=== PATIENT | female | born 1955 | race Caucasian/White ===

== ENCOUNTER 2017-07-16 17:18 | Inpatient (IN) | payer OTHER, MEDICAID ==
[~2017-07-16] VITALS: Ht 162.6 cm; Wt 64.0 kg
[~2017-07-16 17:18] MED LIST: ADULT LOW DOSE81 MG PO; ALLOPURINOL 10100 M1 PO; AMBIEN 5 MG TABL5 M1 PO; AMLODIPINE BESY10 MG PO; AMOX TR-K CLV1 EAC4 PO; ANTACID325 MG PO; ANTACID650 MG PO; ATORVASTATIN CA40 MG PO; AUGMENTIN 875875 M1 PO; AZITHROMYCIN 2250 MG PO; B-121000 MC2 PO; B12INJ PO; BACTRIM DS TAB1 EACH PO; BACTROBAN CREAM30 G1 TOP; BACTROBAN NASAL1 GM; BISACODYL SUPP10 MG RECTAL; CALCIUM ACETAT667 M2 PO; CALCIUM ACETAT667 MG PO; CARAFATE 1 GM TA1 G1 PO; CARAFATE 1 GM TA1 GM PO; CARAFATE 11 GM/10 M1 PO; CARVEDILOL12.5 MG; CARVEDILOL25 MG; CARVEDILOL3.125 MG PO; CATAPRES-TTS 20.2 M1; CATAPRES0.2 M1 PO; CATAPRES0.2 MG PO; CEFAZOLIN 1GM VI1 G1 IV; CELEXA20 MG PO; CENTRUM SILVER1 EAC2 PO; CIPRO250 M1 PO; CIPRO500 M1 PO; CIPROFLOXACIN500 M1 PO; CLEOCIN HCL300 MG PO; CLONIDINE HCL0.2 M2; CLONIDINE HCL0.3 M2 PO; CLONIDINE0.1 PO; CLOPIDOGREL75 MG PO; COLACE100 MG PO; COLACE100 MG PORT; COUMADIN 3 MG TA3 M1 PO; DEXTROSE 500.5 GM/ML IV PUSH; DICLOXACILLIN250 M1 PO; DIFLUCAN150 MG PO; EPOGEN10000 UNIT IJ; EPOGEN2000 UNIT/ SUBQ; ERYTHROMYCIN250 M1 PO; ERYTHROMYCIN250 MG PO; FENOFIBRATE160 MG PO; FLEET ENEMA118 ML RECTAL; FLEXERIL PO; FLORINEF ACETA0.1 MG; FLORINEF ACETA0.1 MG PO; FLUCONAZOLE 10100 MG PO; FUROSEMIDE 80 M80 M1; GABAPENTIN 100100 MG PO; GEMFIBROZIL 60600 MG PO; GLUCAGEN1 M2 IM; GLUCAGEN1 MG IM; GLUCOSE15 GM/59 M PO; HEPARIN 1,100 UNIT/1 IV; HUMALOG100 UNIT/1; HUMALOG100 UNIT/1 SC; HUMALOG100 UNIT/1 SUBQ; HUMALOG100 UNIT/2 SQ; HYDRALAZINE 2525 M1; HYDRALAZINE 2525 M1 PO; HYDRALAZINE 2525 MG PO; HYDROCODON-ACE1 EAC7 PO; HYDROCODONE-ACE15 ML PO; HYDROCODONE-AP1 EAC6 PO; HYDROCODONE-APA1 TA1 PO; HYDROXYZINE HCL25 M1 PO; IBUPROFEN 600600 M1 PO; IMDUR 60 MG TAB60 M1; IRON325 PO; KEFLEX250 MG PO; KEFLEX500 MG PO; KEPPRA 500 MG500 M1 PO; LANTUS SC; LANTUSSOLASTAR SUBQ; LASIX 40 MG TAB40 M1 PO; LIDODERM 5%1 PATC1 TOP; LISINOPRIL2.5 M1 PO; LOPRESSOR100 M1 PO; LOPRESSOR100 MG PO; LOPRESSOR50 MG PO; LORTAB 5 MG/5001 TA1 PO; LOVASTAT20 PO; MACROBID 100 M100 M1 PO; MAG-AL PLUS XS30 ML PO; MAG-OX 400 TAB400 M1 PO; MAGNESIUM OXID400 MG PO; MESTINON60 MG; MESTINON60 MG PO; METOLAZONE 2.52.5 MG; METOLAZONE 5 MG5 M1 PO; METOLAZONE 5 MG5 MG PO; METOLAZONE10 MG PO; METOPROLOL TAR100 MG PO; MILK OF MA2400 MG/10 PO; MINOCYCLINE HC100 M2 PO; MIRALAX17 GM PO; NEURONTIN 300300 M1 PO; NITROSTAT0.4 M1 PO; NORCO 5-325 TA1 EACH PO; NORMAL SALINE FL5 ML IV; NORVASC10 MG PO; NOVOLOG100 UNIT/1 SUBQ; OMEPRAZOLE 20 M20 M1 PO; ONDANSETRON HCL4 M2 PO; OXYCODONE HCL 55 MG PO; PANTOPRAZOLE SO40 M1 PO; PEPCID20 MG PO; PHOSLO667 MG; PHOSLO667 MG PO; PLAVIX 75 MG TA75 M1 PO; PLAVIX 75 MG TA75 MG PO; PRINIVIL20 MG PO; PROCARDIA XL30 MG PO; PROTONIX40 M1 PO; PYRIDOSTIGMINE60 M1 PO; PYRIDOSTIGMINE60 MG PO; REGLAN 10 MG TA10 MG PO; RENAL CAPS SOFTG1 MG PO; SENOKOT-S1 TA1 PO; SIMVASTATIN80 MG PO; TOPROL XL100 MG PO; TOPROL XL200 MG PO; TOPROL XL25 MG PO; TOPROL XL50 MG PO; TRAMADOL 50 MG50 MG PO; TRANSDERM-SCO1 PATC1 TRANSDERM; TRAZODONE HCL50 MG PO; TRIPHROCAPS SOFT1 MG PO; TYLENOL325 MG PO; UNASYN 1.5 GM1.5 GM IV; VANCO1GM IVPB; VANTIN PO; VERAPAMIL ER120 MG PO; VISTARIL 25 MG25 M1 PO; VITAMIN B-12500 MCG PO; VITAMIN D1000 UNI1 PO; VITAMIN D250000 UNIT PO; VITAMIN D3400 UNIT PO; VITAMIN D350000 UNIT PO; VITAMIN D400 UNI1 PO; XANAX 0.25 MG0.25 MG PO; ZANAFLEX4 MG PO; ZANTAC 150MG T150 M1 PO; ZANTAC 150MG T150 MG PO; ZOLOFT50 MG PO; [UNRECOGNIZED DRUG - SUPPLY] IV
[2017-07-16 17:32] VITALS: BP 206/108
[2017-07-16 18:13] LABS: ABSOLUTE BASOPHILS 0.1 thou/uL (0.0-0.2); ABSOLUTE EOSINOPHILS 0.1 thou/uL (0.0-0.7); ABSOLUTE MONOCYTES 0.6 thou/uL (0.0-1.2); ABSOLUTE NEUTROPHILS 4.4 thou/uL (1.6-8.1); EOSINOPHILS 1.1 %; HEMATOCRIT 37.5 % (37.0-47.0); HEMOGLOBIN 12.3 gm/dL (12.0-15.0); LYMPHOCYTES 16.5 %; MCH 31.9 pg (26.0-34.0); MCHC 32.7 g/dL (28.0-37.0); MCV 97.5 fL (80.0-100.0); MONOCYTES 9.5 %; MPV 10.8 fl. (7.2-11.1); NUCLEATED RBCS 0 /100WBC; PLATELET COUNT* 207 thou/uL (150-400); POLYS 71.9 %; RBC 3.85 mil/uL (4.20-5.00); RDW-CV 16.6 % (10.5-14.5); WBC 6.2 thou/uL (4.0-11.0)
[2017-07-16 18:31] LABS: INR 1.1; PROTIME 10.5 Seconds (9.20-11.50)
[2017-07-16 18:32] LABS: ANION GAP 11 mmol/L (7-16); BUN 43 mg/dL (7-18); CALCIUM 9.2 mg/dL (8.5-10.1); CHLORIDE 100 mmol/L (98-107); CO2 28 mmol/L (21-32); CREATININE 5.5 mg/dL (0.6-1.3); GLUCOSE 244 mg/dL (70-99); POTASSIUM 4.2 mmol/L (3.5-5.1); SODIUM 139 mmol/L (136-145)
[2017-07-16 18:42] LABS: ALBUMIN 3.5 g/dL (3.4-5.0); ALKALINE PHOSPHATASE 155 U/L (46-116); LIPASE 100 U/L (73-393); MAGNESIUM 1.9 mg/dL (1.8-2.4); NT-PRO BRAIN NAT PEPTIDE > 35000 pg/mL (<300); SGOT 20 U/L (15-37); SGPT 13 U/L (30-65); TOTAL BILIRUBIN 0.4 mg/dL (<0.1-1.0); TOTAL PROTEIN 7.1 g/dL (6.4-8.2); TROPONIN-I LEVEL <0.06 ng/mL (<0.06)
[2017-07-16 19:00] LABS: INFLUENZA A ANTIGEN None Detected (None Detect); INFLUENZA B ANTIGEN None Detected (None Detect)
[2017-07-16 20:05] VITALS: BP 172/88
[2017-07-16 20:42] VITALS: BP 185/71
[2017-07-17] VITALS (7 sets, daily range): BP systolic 123–164; BP diastolic 53–84
[2017-07-17] MEDS ORDERED: CELEXA20 MG PO (16:14)
[2017-07-17] MEDS ORDERED: TRIPHROCAPS SOFT1 MG PO (16:17)
[2017-07-17] MEDS ORDERED: NORCO 7.5-3251 EACH PO (16:19)
--- NOTE | 2017-07-17 16:29 | EKG ---
[place] [address] ELECTROCARDIOGRAM REPORT Name: ERIN GRISSOM Room: [address] ADM IN M.R.#: [id number] Admission: 07/16/17 Attend Phys: Kyle Abbasi Discharge: Date of : 59 Report #: [id number] THIS REPORT FOR: //name// [facility] ED Test Date: 2017-07-16 Test Time: 18:08:50 Pat Name: ERIN GRISSOM Department: Room: [facility] Gender: F Benefits Counselor: [place] : 1955 Requested By: Leonard Joyner Order Number: [id number] MD: Curt Starr Measurements Intervals [place] Rate: 121 P: ID: QRS: 102 QRSD: 91 T: 42 QT: 374 QTc: 531 Interpretive Statements Atrial fib-flutter with rapid response Anterior infarct, old possible Borderline ST depression, lateral leads Prolonged QT interval Compared to ECG 05/15/2017 15:32:32 atrial fib-flutter noted Myocardial infarct finding now present Prolonged QT interval now present Electronically Signed On 07-17-2017 16:29:45 [employer] by Curt Starr [email or web address] <ELECTRONICALLY SIGNED> By: Curt Starr MD, FACC 07/17/17 1629 1808 1808 Curt Starr MD, FAC /EPI
[2017-07-18 02:07] LABS: HEPATITIS B SURFACE AG Negative (Negative)
[2017-07-18 03:44] VITALS: BP 138/54
[2017-07-18 05:51] LABS: ABSOLUTE EOSINOPHILS 0.1 thou/uL (0.0-0.7); ABSOLUTE MONOCYTES 0.8 thou/uL (0.0-1.2); ABSOLUTE NEUTROPHILS 3.2 thou/uL (1.6-8.1); BASOPHILS 0.7 %; EOSINOPHILS 1.9 %; HEMATOCRIT 37.6 % (37.0-47.0); LYMPHOCYTES 32.4 %; MCH 31.3 pg (26.0-34.0); MCHC 31.8 g/dL (28.0-37.0); MCV 98.3 fL (80.0-100.0); MONOCYTES 13.5 %; MPV 10.7 fl. (7.2-11.1); NUCLEATED RBCS 0 /100WBC; PLATELET COUNT* 168 thou/uL (150-400); POLYS 51.5 %; RBC 3.82 mil/uL (4.20-5.00); RDW-CV 16.8 % (10.5-14.5); WBC 6.1 thou/uL (4.0-11.0)
[2017-07-18 06:07] LABS: INR 1.1
[2017-07-18 06:27] LABS: CALCIUM 8.6 mg/dL (8.5-10.1); CREATININE 3.4 mg/dL (0.6-1.3); POTASSIUM 3.5 mmol/L (3.5-5.1)
[2017-07-18 07:30] VITALS: BP 116/53
[2017-07-18 11:30] VITALS: BP 121/57
--- NOTE | 2017-07-18 12:58 | CON ---
[address] [address] CONSULTATION Name: JACIELERIN Rosaura Room: [address] IN M.R.#: [id number] Admission: 07/16/17 Attend Phys: Kyle Abbasi Discharge: Date of : 59 Report #: [id number] THIS REPORT FOR: //name// CC: Marla Garcia DATE OF SERVICE: 07/17/2017 ATTENDING PHYSICIAN: Jerry Abel MD REASON FOR EVALUATION: Febrile illness, associated abdominal pain with nausea and diarrhea. HISTORY OF PRESENT ILLNESS: Chart reviewed, the patient examined. This is a 62-year-old female known to myself, has extensive medical history given her age, much of which revolves around diabetes mellitus that has been complicated by vasculopathy, end-stage renal disease, on hemodialysis thrice weekly via dialysis catheter in her right chest; also has previous left below-knee amputation. She has had history of urinary tract infections. She was admitted to the emergency room with one week of signs and symptoms on the , described ____ reflux including epigastric type pain. She was unable to eat due to frequent emesis. She has noted that her spouse within the last month with significant grieving. She has had cough, not certain about fevers, although on presentation was febrile. Cultures of the blood are pending. Influenza antigen for A and B was negative. Chest x-ray did show bilateral pulmonary infiltrates. Medicines include Zosyn, vancomycin, given a dose of levofloxacin as well. She is quite distressed at this point and mildly encephalopathic. ALLERGIES: None known. MEDICATIONS: Currently include levofloxacin, vancomycin, aspirin, warfarin, Zosyn, amiodarone, heparin, pantoprazole, hydralazine, ondansetron, cholecalciferol, pyridostigmine, ergocalciferol, ferrous sulfate, clopidogrel, allopurinol, famotidine, diltiazem, metoprolol, trazodone, clonidine, atorvastatin, insulin, ipratropium, albuterol inhaler. PAST MEDICAL HISTORY: As described above, the diabetes mellitus type 1, insulin requiring, complicated by diffuse vasculopathy; has peripheral vascular disease, cardiomyopathy with congestive heart failure, hypertension, end-stage renal disease, on hemodialysis; left below-knee amputation in 2016, blind in the right eye, and previous aortocoronary bypass grafting. SOCIAL HISTORY: Nonsmoker, no ethanol. FAMILY HISTORY: [place] [address] CONSULTATION Name: ERIN GRISSOM Room: [address] IN [facility]#: [id number] Admission: 07/16/17 Attend Phys: Kyle Abbasi Discharge: Date of : 59 Report #: [id number] REVIEW OF SYSTEMS: As above. Presently, denies significant pulmonary related complaints. PHYSICAL EXAMINATION: GENERAL: She appears chronically ill. She is in moderate distress, undernourished. VITAL SIGNS: T-max of 102.0 overnight, more recently 98.8; pulse 67, respirations 18, and blood pressure is 124/61. SKIN: Warm and dry. NECK: Supple. LUNGS: Scattered coarse breath sounds. HEART: Regular. No appreciated murmur. ABDOMEN: Soft. There are no overt peritoneal signs. GENITOURINARY: Deferred. RECTAL: Deferred. LABORATORY DATA: TSH of 0.748, which is in the normal range. Free T4 of 0.997, in the normal range. Blood cultures sterile thus far. Influenza antigen for A and B was not detected. Lactic acid 1.5. Chest x-ray, bilateral pulmonary infiltrates. Electrolytes: Sodium 139, potassium 4.2, chloride 100, bicarbonate 28, anion gap of 11, BUN and creatinine 43 and 5.5, and glucose of 244. LFTs unremarkable. Albumin of 3.5, total protein 7.1. PT of 10.5, INR 1.1. CBC: White count of 6.2, H and H 12.3 and 37.5, and platelets of 207. ASSESSMENT: Febrile illness. The patient is certainly at risk for infectious complications, has primary abdominal related complaints at this point, although the labs do not actually show biliary dysfunction, we will go ahead and check an ultrasound to exclude that. She is at risk for pneumonitis as well. She likely has some degree of volume excess with pulmonary edema ____ sepsis a possibility, may well be a noninfectious as well. We will go ahead and continue empiric broad spectrum therapy, which will give us adequate coverage pending results of cultures. <ELECTRONICALLY SIGNED> By: Raymundo Sinclair MD 07/18/17 1258 1024 [id number] Sinclair MD /nt
--- NOTE | 2017-07-18 17:01 | 2DMMODE ---
[place] [address] 2 D/M-MODE ECHOCARDIOGRAM Name: ERIN GRISSOM Room: [address] IN [facility]#: [id number] Admission: 07/16/17 Attend Phys: Agustin Garcia Discharge: Date of : 59 Date of Service: 07/18/17 1701 Report #: [id number] THIS REPORT FOR: //name// APPROVED REPORT Study performed: 07/18/2017 10:02:00 EXAM: Comprehensive 2D, Doppler, and color-flow Echocardiogram Patient Location: In-Patient Room #: [facility] Status: routine BSA: 1.73 HR: 68 bpm BP: 158/53 mmHg Rhythm: Atrial Fibrillation Other Information Study Quality: Good Indications Atrial Fibrillation 2D Dimensions LVEF(%): 56.23 (>50%) IVSd: 13.31 (7-11mm) LVOT Diam: 17.27 (18-24mm) LVDd: 39.39 mm PWd: 11.39 (7-11mm) Ascending Ao: 30.81 (22-36mm) LVDs: 27.99 (25-40mm) Aortic Root: 28.26 mm Mccoy's LVEF: 56.23 % Volumes Left Atrial Volume (Systole) LA ESV Index: 36.50 mL/m2 Aortic Valve AoV Peak Tj.: 1.44 m/s AO Peak Gr.: 8.25 mmHg LVOT Max P.10 mmHg AO Mean Gr.: 4.39 mmHg LVOT Mean P.49 mmHg LVOT Max V: 0.88 m/s AO V2 VTI: 25.24 cm LVOT Mean V: 0.56 m/s GURMEET (VTI): 1.59 cm2 LVOT V1 VTI: 17.10 cm Mitral Valve MV Decel. Time: 167.01 [place] [address] 2 D/M-MODE ECHOCARDIOGRAM Name: JACIELERIN M Room: [address] IN .R.#: [id number] Admission: 07/16/17 Attend Phys: Agustin Garcia Discharge: Date of : 59 Date of Service: 07/18/17 1701 Report #: [id number] MV PHT: 48.43 ms MVA (PHT): 4.54 cm2 TDI Medial E' Tj.: 0.08 m/s Lateral E' Tj.: 0.08 m/s Pulmonary Valve PV Peak Tj.: 1.07 m/s PV Peak Gr.: 4.57 mmHg Tricuspid Valve TR Peak Gr.: 21.57 mmHg RVSP: 26.00 mmHg Left Ventricle The left ventricle is normal size. There is normal LV segmental wall motion. Moderate concentric left ventricular hypertrophy. Left ventricular systolic function is moderately decreased. LVEF is 40%. This study is not technically sufficient to allow evaluation of the LV diastolic function due to atrial fibrillation. Right Ventricle The right ventricle is normal size. The right ventricular systolic function is normal. Atria Left atrium is mildly dilated. The right atrium size is normal. Aortic Valve Mild aortic valve sclerosis. No aortic regurgitation is present. No hemodynamically significant valvular aortic stenosis. Mitral Valve The mitral valve is normal in structure. Mild mitral regurgitation. No evidence of mitral valve stenosis. Tricuspid Valve The tricuspid valve is normal in structure. Mild tricuspid regurgitation. The RVSP is ___26____ mmHg. Pulmonic Valve The pulmonary valve is normal in structure. Trace pulmonic regurgitation. Great Vessels The aortic root is normal in size. IVC [place] [address] 2 D/M-MODE ECHOCARDIOGRAM Name: ERIN GRISSOM Room: [address] IN [facility]#: [id number] Admission: 07/16/17 Attend Phys: Agustin Garcia Discharge: Date of : 59 Date of Service: 07/18/17 1701 Report #: [id number] collapses with >50% inspiration Pericardium There is no pericardial effusion. <Conclusion> The left ventricle is normal size. Moderate concentric left ventricular hypertrophy. Left ventricular systolic function is moderately decreased. LVEF is 40%. This study is not technically sufficient to allow evaluation of the LV diastolic function due to atrial fibrillation. The right ventricle is normal size. Left atrium is mildly dilated. Mild aortic valve sclerosis. No aortic regurgitation is present. No hemodynamically significant valvular aortic stenosis. The mitral valve is normal in structure. Mild mitral regurgitation. The tricuspid valve is normal in structure. Mild tricuspid regurgitation. The RVSP is ___26____ mmHg. There is no pericardial effusion. There is normal LV segmental wall motion. <ELECTRONICALLY SIGNED> By: Curt Starr MD, FACC 07/18/171700 00 00 Curt Starr MD, FACC /INF
--- NOTE | 2017-07-18 17:38 | EKG ---
[place] [address] ELECTROCARDIOGRAM REPORT Name: ERIN GRISSOM Room: [address] ADM IN M.R.#: [id number] Admission: 07/16/17 Attend Phys: Kyle Abbasi Discharge: Date of : 59 Report #: [id number] THIS REPORT FOR: //name// [facility] Test Date: 2017-07-17 Test Time: 10:07:07 Pat Name: ERIN GRISSOM Department: Room: [address] Gender: F Vocational Nursing Instructor: 29 : 1955 Requested By: Lara Hernandez Order Number: [id number] Giuliana MD: James Cerda Measurements Intervals [place] Rate: 80 P: [place]: QRS: 77 QRSD: 91 T: 260 QT: 459 QTc: 530 Interpretive Statements Atrial fibrillation Consider left ventricular hypertrophy Borderline T abnormalities, inferior leads Anteroseptal infarct, old, possible Prolonged QT interval Compared to ECG 05/15/2017 15:32:32 AV block, advanced (high-grade) now present T-wave abnormality now present Prolonged QT interval now present Left bundle-branch block no longer present Electronically Signed On 07-18-2017 17:38:02 BENEFITS SPECIALIST by James Cerda [email or web address] <ELECTRONICALLY SIGNED> By: James Cerda MD, FACC 07/18/17 1738 1007 1007 James Cerda MD, FAC /EPI
--- NOTE | 2017-07-18 17:45 | EKG ---
[place] [address] ELECTROCARDIOGRAM REPORT Name: ERIN GRISSOM Room: [address] ADM IN M.R.#: [id number] Admission: 07/16/17 Attend Phys: Kyle Abbasi Discharge: Date of : 59 Report #: [id number] THIS REPORT FOR: //name// [facility] Test Date: 2017-07-18 Test Time: 08:39:27 Pat Name: ERIN GRISSOM Department: Room: [address] Gender: F Director Of Veterans Affairs: : 1955 Requested By: Renetta Case Order Number: [id number] Reading MD: James Cerda Measurements Intervals [place] Rate: 79 P: 0 ID: 200 QRS: 94 QRSD: 92 T: 96 QT: 458 QTc: 526 Interpretive Statements Atrial fibrillation Anterior infarct, old Nonspecific T abnormalities, lateral leads Prolonged QT interval Compared to ECG 07/16/2017 18:08:50 T-wave abnormality now present ST (T wave) deviation no longer present Myocardial infarct finding still present Electronically Signed On 07-18-2017 17:45:05 HAND SAMPLE MAKER by James Cerda [email or web address] <ELECTRONICALLY SIGNED> By: James Cerda MD, FACC 07/18/17 1745 0839 0839 James Cerda MD, FAC /EPI
[2017-07-18 20:00] VITALS: BP 130/62
[2017-07-19 00:15] VITALS: BP 123/60
[2017-07-19 03:55] VITALS: BP 141/54
[2017-07-19 05:35] LABS: INR 1.1; PROTIME 10.6 Seconds (9.20-11.50)
[2017-07-19 08:12] VITALS: BP 113/51
[2017-07-19 12:00] VITALS: BP 149/61
[2017-07-19 15:22] VITALS: BP 149/61
--- NOTE | 2017-07-19 17:39 | EKG ---
[place] [address] ELECTROCARDIOGRAM REPORT Name: ERIN GRISSOM Room: [address] ADM IN M.R.#: [id number] Admission: 07/16/17 Attend Phys: Kyle Abbasi Discharge: Date of : 59 Report #: [id number] THIS REPORT FOR: //name// [facility] Test Date: 2017-07-19 Test Time: 07:50:35 Pat Name: ERIN GRISSOM Department: Room: [address] Gender: F Ordering Machine Operator: : 1955 Requested By: Renetta Case Order Number: [id number] Reading MD: James Cerda Measurements Intervals [place] Rate: 62 P: 103 ME: 234 QRS: 82 QRSD: 95 T: 65 QT: 515 QTc: 523 Interpretive Statements Atrial fibrillation Borderline right axis deviation Probable left ventricular hypertrophy Nonspecific T abnormalities, lateral leads Baseline wander in lead(s) III Compared to ECG 07/18/2017 08:39:27 Myocardial infarct finding no longer present Prolonged QT interval no longer present T-wave abnormality still present Electronically Signed On 07-19-2017 17:39:23 ETL PROGRAMMER by James Cerda [email or web address] <ELECTRONICALLY SIGNED> By: James Cerda MD, FACC 07/19/17 1739 0750 0750 James Cerda MD, FACC /EPI
[2017-07-19 20:00] VITALS: BP 105/44
[2017-07-20 04:32] VITALS: BP 151/52
[2017-07-20 07:53] VITALS: BP 165/61
[2017-07-20 12:03] VITALS: BP 105/42
[2017-07-20 16:15] VITALS: BP 112/49
[2017-07-20 20:10] VITALS: BP 110/42
[2017-07-21] VITALS: BP 131/51
[2017-07-21 09:00] VITALS: BP 134/96
[2017-07-21 15:53] VITALS: BP 149/61
[2017-07-21] MEDS ORDERED: COUMADIN 3 MG TA3 M1 PO (17:29)
[2017-07-21] MEDS ORDERED: CARDIZEM60 MG PO (17:30)
[2017-07-21 17:33] VITALS: BP 149/61
[2017-07-21 17:35] VITALS: BP 149/61
[2017-07-21 17:47] VITALS: BP 149/61
--- NOTE | 2017-07-31 09:12 | CON ---
[facility] [address] [place] [address] CONSULTATION Name: ERIN GRISSOM Room: [address] IN M.R.#: [id number] Admission: 07/16/17 Attend Phys: Kyle Abbasi Discharge: 07/21/17 Date of : 59 Report #: [id number] THIS REPORT FOR: //name// CC: Marla Garcia DATE OF SERVICE: 07/17/2017 REQUESTING PHYSICIAN: Jerry Abel M.D. REASON FOR CONSULTATION: Assistance in providing dialysis. HISTORY OF PRESENT ILLNESS: The patient is a 62-year-old female admitted to the hospital after she missed a couple of dialysis treatments. She presents to the hospital with complaints of not feeling well and having some cough and congestion. She was evaluated in the Emergency Room. X-ray was performed, she was found to have patchy bilateral infiltrates, the diagnosis was between pneumonia and aspiration. The infiltrates were greater on the left side. She was admitted with a diagnosis of pneumonia and I was consulted to provide help with dialysis. PAST MEDICAL HISTORY: Significant for: 1. Hypertension. 2. History of diabetes mellitus type 1. 3. End-stage renal disease on dialysis on Monday, Monday, and Monday schedule. 4. History of hypoxia. 5. Coronary artery disease. 6. History of fracture of the left inferior pubic ramus in the past. SOCIAL HISTORY: No current tobacco or alcohol abuse. FAMILY HISTORY: Noncontributory. MEDICATIONS: Reviewed. PHYSICAL EXAMINATION: GENERAL: She is examined on dialysis, no acute distress. VITAL SIGNS: Reviewed. NECK: Supple. LUNGS: Decreased air movement. Dialysis is via tunneled dialysis catheter on the right side through the right internal jugular vein. CARDIOVASCULAR: Without rub. ABDOMEN: Soft. EXTREMITIES: She has a left [place] [address] CONSULTATION Name: ERIN GRISSOM Room: [address]#: [id number] Admission: 07/16/17 Attend Phys: Kyle Abbasi Discharge: 07/21/17 Date of : 59 Report #: [id number] LABORATORY DATA: Revealed hemoglobin of 12.3, white count 6200. Potassium is 4.2. ASSESSMENT: A 62-year-old female with end-stage renal disease, admitted for possible pneumonia. PLAN: I will provide dialysis while the patient is in the hospital. Thank you very much for asking my assistance in providing dialysis on this patient. <ELECTRONICALLY SIGNED> By: Ranjit Parks MD 07/31/17 0912 1239 2122Adc Parks MD /PMT
[2018-01-08] MEDS ORDERED: PLAVIX 75 MG TA75 M1 PO (17:09)
== END 2017-07-21 18:50 | disposition home health service (06) | DRG 871 ==
LOC: M.ERS 17:18 → M.2W 18:52 → M.TBA-ER 18:52 → M.2W 19:27
PROVIDERS: Emergency Medicine; Internal Medicine; Internal Medicine Nephrology; Nurse Practitioner Family; ADMIT Internal Medicine
PROC: 5A1D70Z Performance of Urinary Filtration, Intermittent, Less than 6 Hours Per Day (ICD-10-PCS; principal; 2017-07-19)
PROC: 5A1D70Z Performance of Urinary Filtration, Intermittent, Less than 6 Hours Per Day (ICD-10-PCS; 2017-07-21)
DX: A41.9 Sepsis, unspecified organism (principal); N18.6 End stage renal disease; J69.0 Pneumonitis due to inhalation of food and vomit; I50.32 Chronic diastolic (congestive) heart failure; I42.9 Cardiomyopathy, unspecified; I13.2 Hypertensive heart and chronic kidney disease with heart failure and with stage 5 chronic kidney disease, or end stage renal disease; I25.10 Atherosclerotic heart disease of native coronary artery without angina pectoris; H54.40 Blindness, one eye, unspecified eye; E10.51 Type 1 diabetes mellitus with diabetic peripheral angiopathy without gangrene; E10.22 Type 1 diabetes mellitus with diabetic chronic kidney disease; F32.9 Major depressive disorder, single episode, unspecified; D63.8 Anemia in other chronic diseases classified elsewhere; I48.0 Paroxysmal atrial fibrillation; K52.9 Noninfective gastroenteritis and colitis, unspecified; E87.70 Fluid overload, unspecified; Z87.440 Personal history of urinary (tract) infections; Z98.62 Peripheral vascular angioplasty status; Z99.2 Dependence on renal dialysis; Z90.710 Acquired absence of both cervix and uterus; Z95.1 Presence of aortocoronary bypass graft; Z89.512 Acquired absence of left leg below knee; Z87.81 Personal history of (healed) traumatic fracture; Z82.49 Family history of ischemic heart disease and other diseases of the circulatory system; Z91.14 Patient's other noncompliance with medication regimen; Z79.01 Long term (current) use of anticoagulants; Z79.899 Other long term (current) drug therapy

== ENCOUNTER 2017-08-23 18:48 | Observation (INO) | payer OTHER, MEDICAID ==
[~2017-08-23] VITALS: Ht 162.6 cm; Wt 68.9 kg
[~2017-08-23 18:48] MED LIST changes: +CARDIZEM60 MG PO; +NORCO 7.5-3251 EACH PO
[2017-08-23 18:59] VITALS: BP 197/104
[2017-08-23 19:37] LABS: ABSOLUTE BASOPHILS 0.1 thou/uL (0.0-0.2); ABSOLUTE EOSINOPHILS 0.2 thou/uL (0.0-0.7); ABSOLUTE LYMPHOCYTES 1.7 thou/uL (0.8-5.3); ABSOLUTE MONOCYTES 0.4 thou/uL (0.0-1.2); ABSOLUTE NEUTROPHILS 4.4 thou/uL (1.6-8.1); BASOPHILS 0.9 %; EOSINOPHILS 3.6 %; HEMATOCRIT 35.6 % (37.0-47.0); HEMOGLOBIN 11.4 gm/dL (12.0-15.0); LYMPHOCYTES 24.5 %; MCHC 32.1 g/dL (28.0-37.0); MCV 96.6 fL (80.0-100.0); MONOCYTES 6.3 %; MPV 9.2 fl. (7.2-11.1); NUCLEATED RBCS 0 /100WBC; PLATELET COUNT* 271 thou/uL (150-400); POLYS 64.7 %; RBC 3.68 mil/uL (4.20-5.00); RDW-CV 18.4 % (10.5-14.5); WBC 6.8 thou/uL (4.0-11.0)
[2017-08-23 19:44] LABS: CALCIUM 8.7 mg/dL (8.5-10.1)
[2017-08-23 19:49] LABS: ALBUMIN 3.2 g/dL (3.4-5.0); TOTAL BILIRUBIN 0.4 mg/dL (<0.1-1.0); TOTAL PROTEIN 6.4 g/dL (6.4-8.2)
[2017-08-23 23:15] VITALS: BP 163/76
[2017-08-23 23:41] VITALS: BP 172/84
[2017-08-24 04:00] VITALS: BP 159/80
--- NOTE | 2017-08-24 05:28 | NUR ---
PT ADMITTED FROM ER. HISTORY AND ASSESSMENT COMPLETE. DIALYSIS PORT TO R CHEST. PT INCONT OF LARGE AMOUNT OF WATERY STOOL. BED CHANGE AND CLEANED UP. PT TEARFUL AT TIMES. AFIB ON MONITOR. BARBRA PAIN. PT TO HAVE DIALYSIS TODAY. FALL PRECAUTIONS IN PLACE INCLUDING BED ALARM. BED IN LOWEST POSITION.
[2017-08-24 08:00] VITALS: BP 172/92
--- NOTE | 2017-08-24 09:13 | NUR ---
Pt out of the room at dialysis, Pt known to this CM from previous hospital stay. Pt normally resides at home with her son. Pt dialysis dependent and goes to HD at [facility]. Son provides transportation. Son assists with cares at home. Hx of . Hx of SNF at [facility]. CM to f/u to assess Pt's current situation later.
--- NOTE | 2017-08-24 09:33 | NUR ---
ASSUMED CARE OF PT AT 0730. PT RESTING IN BED. PT TO HAVE DIALYSIS THIS AM. PT A&0X4, DENIES ANY PAIN OR SHORTNESS OF BREATH AT THIS TIME. PT TRACING AFIB ON THE POWDER WORKER. ON RA SAT 96%. PT INCONT OF BOWEL AND BLADDER. RIGHT CHEST DIALYSIS CATHETER IN PLACE. PT WHEELCHAIR BOUND AT HOME. UP WITH 1-2 ASSIST, UNSTEADY WITH LEFT BKA. RLE WOUNDS NOTED. REFER TO PICTURES IN CHART. HOME MEDICATIONS NOT RESTARTED. WILL ADMINISTER WHEN MEDICATIONS RESTARTED AND WHEN PT RETURNS BACK FROM DIALYSIS. PT TRANSFERRED TO DIALYSIS VIA BED. REPORT GIVEN TO NASEEM BREAST PULLER. AM ASSESSMENT CHARTED. PT REPOSITIONED EVERY 2 HOURS FOR COMFORT. HOURLY ROUNDING OBSERVED. BED IN LOW POSITION. BED ALARM IN PLACE. FALL PRECAUTIONS IN PLACE. CALL LIGHT WITHIN REACH. WILL CONTINUE PLAN OF CARE.
[2017-08-24 10:32] VITALS: BP 172/92
--- NOTE | 2017-08-24 12:56 | EKG ---
[place] [address] ELECTROCARDIOGRAM REPORT Name: JACIELERIN Rosaura Room: [address] M.R.#: [id number] Admission: 08/23/17 Attend Phys: Kyle Abbasi Discharge: Date of : 59 Report #: [id number] THIS REPORT FOR: //name// [facility] ED Test Date: 2017-08-23 Test Time: 20:33:46 Pat Name: ERIN GRISSOM Department: Room: [facility] Gender: F Cardiac Tech: JULIOCESAR Morales : 1955 Requested By: Clair Thompson Order Number: [id number] MD: Trevor Beck Measurements Intervals [place] Rate: 106 P: [place]: QRS: 112 QRSD: 97 T: 70 QT: 383 QTc: 509 Interpretive Statements Atrial flutter with predominant 2:1 AV block Anterior infarct, old Minimal ST depression, diffuse leads Compared to ECG 07/19/2017 07:50:35 rate increased Electronically Signed On 08-24-2017 12:56:24 JIGMAN by Trevor Beck [email or web address] <ELECTRONICALLY SIGNED> By: Trevor Beck MD, FAC 08/24/17 1256 32 32 Trevor Beck MD, [facility] /EPI
[2017-08-24 13:12] VITALS: BP 161/82
--- NOTE | 2017-08-24 14:50 | NUR ---
CM SPOKE TO THE PATIENT TO DISCUSS DISCHARGE PLANNING NEEDS, AND ANY QUESTIONS OR CONCERNS THAT SHE MAY HAVE. PATIENT HAS NO QUESTIONS OR CONCERNS AT THIS TIME, AND STATES THAT HER SON WILL PROVIDE TRANSPORTATION HOME. CM CONTACTED [facility] TO INFORM OF THE PATIENTS D/C HOME TODAY, AND FAXED THE PATIENTS FACESHEET, H&P, AND FLOW SHEETS. CM WILL REMAIN AVAILABLE TO ASSIST AND FOLLOW NEEDED.
--- NOTE | 2017-08-24 15:02 | NUR ---
PT WENT TO DIALYSIS THIS AM. TOLERATED WELL. 3L TAKEN OFF PER TITA GUSMAN RN. DISCHARGE ORDERS RECEIVED. DISCHARGE INSTRUCTIONS, CARE NOTES AND FOLLOW UP APPTS GIVEN TO PT. PT COMMUNICATES UNDERSTANDING OF DISCHARGE TEACHING. IV AND SUPPORT ASSOCIATE REMOVED. PT DISCHARGED WITH ALL BELONGINGS AND PAPERWORK VIA WHEELCHAIR WITH NURSING STAFF TO SONS OWN PERSONAL VEHICLE.
--- NOTE | 2017-09-05 15:49 | CON ---
[address] [address] CONSULTATION Name: JACIELERIN Rosaura Room: [address] Olga Reed#: [id number] Admission: 08/23/17 Attend Phys: Kyle Abbasi Discharge: 08/24/17 Date of : 59 Report #: [id number] THIS REPORT FOR: //name// CC: Marla Garcia DATE OF SERVICE: 08/23/2017 CONSULTING PHYSICIAN: Agustin Garcia DO. REASON FOR CONSULTATION: End-stage kidney disease. HISTORY OF PRESENT ILLNESS: A 62-year-old female with history of end-stage kidney disease, on hemodialysis Tuesdays, , Saturdays, admitted to observation secondary to missed dialysis and hyperkalemia. She had a potassium of 6. She is seen on dialysis, tolerating treatment well. The patient currently has no complaints. She is tolerating her dialysis treatment well and is to discharge after dialysis today. She also had Aflutter and was given IV beta blockers with improvement in her heart rate. REVIEW OF SYSTEMS: Constitutional, psych, heme, eyes, ENT, respiratory, cardiac, GI, , endocrine, all negative except as documented above. Denies any chest pain or shortness of breath. PAST MEDICAL HISTORY: End-stage kidney disease on hemodialysis, hypertension, diabetes type 1, blind in her right eye, peripheral vascular disease with stenting in the lower extremities, coronary artery disease with history of 4-vessel CABG, hysterectomy, depression, diastolic heart failure, AFib, history of hip fracture, history of left BKA 2016. SOCIAL HISTORY: No tobacco. FAMILY HISTORY: Not pertinent in this 62-year-old female. CURRENT MEDICATIONS: Reviewed. PHYSICAL EXAMINATION: VITAL SIGNS: Blood pressure 172/92, pulse 83, temperature 36.8. GENERAL: No acute distress. EYES: Extraocular movements intact. EARS: Externally normal. CARDIOVASCULAR: Regular rate. LUNGS: No crackles. ABDOMEN: Soft. MUSCULOSKELETAL: Nontender. PSYCHIATRIC: [place] [address] CONSULTATION Name: ERIN GRISSOM Room: [address] Olga Reed#: [id number] Admission: 08/23/17 Attend Phys: Kyle Abbasi Discharge: 08/24/17 Date of : 59 Report #: [id number] LABORATORY DATA: White cell count 6.8, hemoglobin 11.4, platelets 271. Sodium 137, potassium 6, chloride 105, bicarbonate 20, BUN 40, creatinine 5, glucose 157, calcium 8.7, albumin 3.2. ASSESSMENT AND PLAN: 1. End-stage kidney disease, on chronic hemodialysis. The patient is seen on dialysis, tolerating treatment well. 2. Hyperkalemia. The patient is dialyzing against a lower potassium dialysate which will help treat her high potassium and has been educated on low potassium diet. 3. Atrial flutter per Internal Medicine. Upon discharge, the patient can follow up in the outpatient dialysis unit and follow her regular maintenance dialysis schedule. Thank you for requesting my opinion in the care and management of this patient. <ELECTRONICALLY SIGNED> By: Latoya Wyatt MD 09/05/17 1549 1143 1748Abikyle Wyatt MD /nt
[2018-01-08] MEDS ORDERED: PLAVIX 75 MG TA75 M1 PO (17:09)
== END 2017-08-24 15:10 | disposition home or self-care (01) ==
LOC: M.ERS 18:48 → M.TBA-ER 21:59 → M.2W 21:59
PROVIDERS: Emergency Medicine; ADMIT Internal Medicine
DX: E87.5 Hyperkalemia (principal); I48.92 Unspecified atrial flutter; I48.91 Unspecified atrial fibrillation; I73.9 Peripheral vascular disease, unspecified; I25.10 Atherosclerotic heart disease of native coronary artery without angina pectoris; F32.9 Major depressive disorder, single episode, unspecified; I13.2 Hypertensive heart and chronic kidney disease with heart failure and with stage 5 chronic kidney disease, or end stage renal disease; E10.22 Type 1 diabetes mellitus with diabetic chronic kidney disease; I50.32 Chronic diastolic (congestive) heart failure; N18.6 End stage renal disease; Z99.2 Dependence on renal dialysis; Z89.512 Acquired absence of left leg below knee

== ENCOUNTER 2017-10-28 06:54 | Emergency (ER) | payer OTHER, MEDICAID ==
[~2017-10-28] VITALS: Ht 162.6 cm; Wt 67.6 kg
--- NOTE | 2017-10-28 08:39 | EKG ---
[place] [address] ELECTROCARDIOGRAM REPORT Name: ERIN GRISSOM Room: [facility]#: [id number] Admission: 10/28/17 Attend Phys: Discharge: Date of : 59 Report #: [id number] THIS REPORT FOR: //name// [facility] ED Test Date: 2017-10-28 Test Time: 07:00:57 Pat Name: ERIN GRISSOM Department: Room: Gender: F Retail Banker: Carmen PRINCE : 1955 Requested By: Kaylene Boyd Order Number: [id number] Reading MD: James Cerda Measurements Intervals [place] Rate: 84 P: [place]: QRS: 102 QRSD: 100 T: 17 QT: 466 QTc: 551 Interpretive Statements Atrial flutter with variable AV conduction Anterior infarct, old Borderline T abnormalities, inferior leads Prolonged QT interval Compared to ECG 08/23/2017 20:33:46 T-wave abnormality now present ST (T wave) deviation no longer present Myocardial infarct finding still present Electronically Signed On 10-28-2017 8:38:52 CDT by James Cerda [email or web address] <ELECTRONICALLY SIGNED> By: James Cerda MD, FACC 10/28/17 0838 9 9 James Cerda MD, [facility] /EPI
[2017-10-28 08:51] VITALS: BP 199/111
[2018-01-08] MEDS ORDERED: PLAVIX 75 MG TA75 M1 PO (17:09)
== END 2017-10-28 08:55 | disposition home or self-care (01) ==
LOC: M.ERS 06:54
DX: I16.0 Hypertensive urgency (principal); I25.10 Atherosclerotic heart disease of native coronary artery without angina pectoris; I13.2 Hypertensive heart and chronic kidney disease with heart failure and with stage 5 chronic kidney disease, or end stage renal disease; N18.6 End stage renal disease; E10.22 Type 1 diabetes mellitus with diabetic chronic kidney disease; I50.9 Heart failure, unspecified; F32.9 Major depressive disorder, single episode, unspecified; Z90.710 Acquired absence of both cervix and uterus

== ENCOUNTER 2017-10-31 09:28 | Emergency (ER) | payer OTHER, MEDICAID ==
[~2017-10-31] VITALS: Ht 152.4 cm; Wt 54.4 kg
[2017-10-31 10:50] LABS: URINE BLOOD 3+ (Negative); URINE CLARITY SL CLOUDY; URINE GLUCOSE-RANDOM 2+ (Negative); URINE KETONES TRACE (Negative); URINE LEUKOCYTES-REFLEX TRACE (Negative); URINE NITRITE-REFLEX NEGATIVE (Negative); URINE PROTEIN 3+ (Negative); URINE UROBILINOGEN 0.2 E.U./dl (0.2-1.0)
[2017-10-31 10:51] LABS: ICTOTEST (BILI CONFIRMATORY) Negative (Negative); URINE BILIRUBIN 1+ (Negative); URINE COLOR BROWN
[2017-10-31 10:56] LABS: CASTS None Seen /LPF (None Seen); CRYSTALS None Seen /LPF (None Seen); MUCUS 0-3 Light strn/LPF (None Seen); SQUAMOUS 0-3 Few /LPF (0-3); URINE RBC >20 Many /HPF (0-2); URINE WBC-REFLEX 6-15 Few /HPF (0-5)
[2017-10-31] MEDS ORDERED: TRAZODONE HCL50 MG PO (11:03)
[2017-10-31] MEDS ORDERED: HYDROCODON-ACE1 EAC7 PO (11:03)
[2017-10-31] MEDS ORDERED: CIPRO250 M1 PO (11:03)
[2017-10-31 13:00] VITALS: BP 203/102
[2018-01-08] MEDS ORDERED: PLAVIX 75 MG TA75 M1 PO (17:09)
== END 2017-10-31 13:01 | disposition home or self-care (01) ==
LOC: M.ERS 09:28
PROVIDERS: Emergency Medicine
DX: I10 Essential (primary) hypertension (principal); N39.0 Urinary tract infection, site not specified; I25.10 Atherosclerotic heart disease of native coronary artery without angina pectoris; E10.22 Type 1 diabetes mellitus with diabetic chronic kidney disease; N18.6 End stage renal disease; I48.91 Unspecified atrial fibrillation; I13.2 Hypertensive heart and chronic kidney disease with heart failure and with stage 5 chronic kidney disease, or end stage renal disease; I50.9 Heart failure, unspecified; Z99.2 Dependence on renal dialysis; Z90.710 Acquired absence of both cervix and uterus

== ENCOUNTER 2017-11-10 19:12 | Emergency (ER) | payer OTHER, MEDICAID ==
[~2017-11-10] VITALS: Ht 160 cm; Wt 68.0 kg
[2017-11-10] MEDS ORDERED: KEFLEX500 M1 PO (19:33)
[2017-11-10 19:54] VITALS: BP 220/95
[2018-01-08] MEDS ORDERED: PLAVIX 75 MG TA75 M1 PO (17:09)
== END 2017-11-10 19:55 | disposition home or self-care (01) ==
LOC: M.ERS 19:12
DX: S91.311A Laceration without foreign body, right foot, initial encounter (principal); E10.9 Type 1 diabetes mellitus without complications; I13.2 Hypertensive heart and chronic kidney disease with heart failure and with stage 5 chronic kidney disease, or end stage renal disease; E10.22 Type 1 diabetes mellitus with diabetic chronic kidney disease; F32.9 Major depressive disorder, single episode, unspecified; I48.91 Unspecified atrial fibrillation; I50.9 Heart failure, unspecified; Z99.2 Dependence on renal dialysis; X58.XXXA Exposure to other specified factors, initial encounter; Y93.89 Activity, other specified; Y92.89 Other specified places as the place of occurrence of the external cause; Y99.8 Other external cause status

== ENCOUNTER 2017-11-11 07:44 | Inpatient (IN) | payer OTHER, MEDICAID ==
[~2017-11-11] VITALS: Ht 152.4 cm; Wt 60.3 kg
[2017-11-11] VITALS (8 sets, daily range): BP systolic 123–203; BP diastolic 56–84
[~2017-11-11 07:44] MED LIST changes: +KEFLEX500 M1 PO
[2017-11-11 11:19] LABS: ABSOLUTE BASOPHILS 0.1 thou/uL (0.0-0.2); ABSOLUTE EOSINOPHILS 0.1 thou/uL (0.0-0.7); ABSOLUTE MONOCYTES 0.5 thou/uL (0.0-1.2); ABSOLUTE NEUTROPHILS 5.3 thou/uL (1.6-8.1); BASOPHILS 1.4 %; EOSINOPHILS 1.7 %; HEMATOCRIT 39.9 % (37.0-47.0); HEMOGLOBIN 12.8 gm/dL (12.0-15.0); LYMPHOCYTES 14.7 %; MCH 30.2 pg (26.0-34.0); MCHC 32.1 g/dL (28.0-37.0); MPV 11.1 fl. (7.2-11.1); NUCLEATED RBCS 0 /100WBC; PLATELET COUNT* 169 thou/uL (150-400); POLYS 75.2 %; RBC 4.25 mil/uL (4.20-5.00); RDW-CV 16.1 % (10.5-14.5); WBC 7.1 thou/uL (4.0-11.0)
[2017-11-11 11:28] LABS: ANION GAP 12 mmol/L (7-16); APTT 27.8 Seconds (25.0-31.3); BUN 30 mg/dL (7-18); CALCIUM 7.8 mg/dL (8.5-10.1); CHLORIDE 100 mmol/L (98-107); CO2 22 mmol/L (21-32); CREATININE 3.5 mg/dL (0.6-1.3); GLUCOSE 362 mg/dL (70-99); INR 1.2; POTASSIUM 3.5 mmol/L (3.5-5.1); PROTIME 11.2 Seconds (9.20-11.50); SODIUM 134 mmol/L (136-145)
--- NOTE | 2017-11-11 11:31 | NUR ---
PT STATES SHE HAS DIALYSIS ON TUESDAYS, THURSDAYS AND SATURDAYS. PT STATES SHE MISSED HER LAST DIALYSIS ON MONDAY DUE TO NOT FEELING WELL AND HAVING DIARRHEA. PT HAS FISTULA IN RIGHT ARM. CURRENT BP IS 215/88
[2017-11-11 11:39] LABS: ALBUMIN 2.8 g/dL (3.4-5.0); ALKALINE PHOSPHATASE 143 U/L (46-116); SGOT 7 U/L (15-37); SGPT 7 U/L (30-65); TOTAL BILIRUBIN 0.6 mg/dL (<0.1-1.0); TOTAL PROTEIN 6.3 g/dL (6.4-8.2); TROPONIN-I LEVEL <0.06 ng/mL (<0.06)
[2017-11-11 12:07] LABS: NT-PRO BRAIN NAT PEPTIDE > 35000 pg/mL (<300)
--- NOTE | 2017-11-11 13:09 | EKG ---
[place] [address] ELECTROCARDIOGRAM REPORT Name: ERIN GRISSOM Room: [place] [address] ADM IN [facility].#: [id number] Admission: 11/11/17 Attend Phys: Rosaura Cruz Discharge: Date of : 59 Report #: [id number] THIS REPORT FOR: //name// [facility] ED Test Date: 2017-11-11 Test Time: 07:51:03 Pat Name: ERIN GRISSOM Department: Room: Gender: F Body Joiner: : 1955 Requested By: Lorne Moyer Order Number: [id number] Reading MD: Alexis Ramirez Measurements Intervals [place] Rate: 54 P: -3 NY: 207 QRS: 83 QRSD: 97 T: 115 QT: 560 QTc: 531 Interpretive Statements Sinus rhythm Borderline prolonged [place] interval Anterior infarct, old Prolonged QT interval Compared to ECG 10/28/2017 07:00:57 Atrial flutter no longer present T-wave abnormality no longer present Myocardial infarct finding still present Electronically Signed On 11-11-2017 13:08:53 CDT by Alexis Ramirez [email or web address] <ELECTRONICALLY SIGNED> By: Alexis Ramirez MD, FACC 11/11/17 1308 0751 [id number] Alexis Ramirez MD, FAC /EPI
--- NOTE | 2017-11-11 14:10 | NUR ---
RECIEVED PT FROM ER AT 1320. ASSESSMENT CHARTED. AFEBRILE. PT DENIES PAIN. L. BKA AND R. FOOT EDEMA. PT ON CARDENE GTT. PRESSURES STABLE NOW. PT WILL PROBABLY HAVE DIALYSIS TODAY. FAMILY UPDATED ON PLAN OF CARE. WILL CONTINUE TO MONITOR.
[2017-11-12] VITALS (10 sets, daily range): BP systolic 103–162; BP diastolic 37–81
--- NOTE | 2017-11-12 07:37 | NUR ---
RECEIVED REPORT FROM ELLIE ROD. ASSESSMENT CHARTED. AFEBRILE. CARDENE GTT STILL INFUSING AT 2 MG/HR. DIALYSIS YESTERDAY. WILL CONTINUE TO MONITOR.
[2017-11-13] VITALS: BP 165/63
--- NOTE | 2017-11-13 03:42 | NUR ---
PT REMAINS ON RA. VSS. AFEBRILE. PT SB/SR ON MONITOR. PT HAS SCHEDULE DOSE OF PAIN MEDICATION WHICH HAS CONTROLLED PAIN.
[2017-11-13 04:00] VITALS: BP 147/54
[2017-11-13 07:48] VITALS: BP 115/49
--- NOTE | 2017-11-13 09:18 | CON ---
[address] [address] CONSULTATION Name: ERIN GRISSOM Room: [address] IN .R.#: [id number] Admission: 11/11/17 Attend Phys: Rosaura Cruz Discharge: Date of : 59 Report #: [id number] THIS REPORT FOR: //name// CC: KYLE physician/PCP Maribell Champion DATE OF SERVICE: 11/12/2017 ATTENDING PHYSICIAN: Dr. Champion. REASON FOR CONSULTATION: Right diabetic foot infection. HISTORY OF PRESENT ILLNESS: A 62-year-old white woman admitted through the Emergency Room with uncontrolled hypertension and also right foot infection. The patient is given Zosyn and vancomycin for treatment of these. The patient is somnolent, currently in the intensive care unit. Nursing has reported she is noncompliant with her medical care. PAST MEDICAL HISTORY: 1. Chronic renal failure, on hemodialysis. 2. Hypertension, uncontrolled. 3. Left diabetic foot infection. 4. Previous pelvic fracture and previous episode of pneumonia. 5. There appears to be a history of atrial fibrillation as well. ALLERGIES: None listed. MEDICATIONS: The patient is on vancomycin 500 mg IV daily, which obviously is not the correct dosing for a patient with renal failure. She is also on Zosyn 3.375 g IV every 12 hours. She is on warfarin, citalopram, pyridostigmine, cholecalciferol, ferrous sulfate, allopurinol, nicardipine, calcium acetate, trazodone, metoprolol, atorvastatin, insulin glargine, aspirin, insulin lispro per sliding scale, p.r.n. hydrocodone, famotidine p.r.n., clonidine p.r.n. SOCIAL HISTORY: See H and P, old records. FAMILY HISTORY: See H and P, old records. REVIEW OF SYSTEMS: Some right foot discomfort. No pain. No systemic symptoms. PHYSICAL EXAMINATION: GENERAL: This is a well-developed woman, chronically ill appearing. PRESENTING VITAL SIGNS: Temperature 98.9; blood pressure on admission 217/80-236/100, currently 125/52; pulse 53; respirations 23. HEENMT: Pupils reactive. She appears to be blind on the left eye, she tells me. [place] [address] CONSULTATION Name: JACIELERIN Room: [address] IN [facility]#: [id number] Admission: 11/11/17 Attend Phys: Rosaura Cruz Discharge: Date of : 59 Report #: [id number] NECK: Supple. LUNGS: Basilar crackles. HEART: S1, S2. No gallops. BREASTS: Deferred. ABDOMEN: Soft, no masses or megaly. CHEST: Revealed right-sided infraclavicular internal jugular dialysis catheter. PELVIC AND RECTAL: Deferred. EXTREMITIES: She has left BKA. The right foot dressings removed and she has got a large blister on the sole of the foot with some erythematous changes. LABORATORY DATA: Sodium 134, potassium 3.5, BUN 30, creatinine 3.5, glucose 362, alkaline phosphatase 143, albumin 2.8 g/dL. NT-proBNP greater than 35,000. Protime 11.2 seconds. WBC 7.1; hemoglobin 12.8; platelets 169,000. Prealbumin 13.5. Hepatitis B surface antigen pending. Urinalysis pending. ASSESSMENT: Right diabetic foot infection with superficial skin breakdown. DIAGNOSES: 1. Peripheral vascular disease, history of left below-knee amputation. 2. Uncontrolled hypertension. 3. End-stage renal disease, on hemodialysis. SUGGESTIONS: Recommend to continue Zosyn. Change vancomycin to 500 mg IV post-hemodialysis 3 times weekly. I believe she is being dialyzed on Tuesdays, and Saturdays. Dr. Champion, thank you for requesting my suggestions in the care of your patient. <ELECTRONICALLY SIGNED> By: Morro Tirado MD 11/13/17 0918 [id number] [id number] Tirado MD /nt
--- NOTE | 2017-11-13 10:22 | NUR ---
PATIENT WANTS TO GO HOME, SPOKE WITH DOCTOR CAMPOVERDE, WILL TALK TO DR PRESTON AND NEPHROLOGY TO SEE IF THEY APPROVE OF PATIENT GOING HOME.
--- NOTE | 2017-11-13 10:55 | NUR ---
PT ADMITTED 11/11, PT MISSED HER REGULAR DIALYSIS ON 11/09. PT SLEEPING NOW, NO FAMILY IN THE ROOM. CASE MGT WILL ASSESS AT LATER TIME.
[2017-11-13 11:07] LABS: HEPATITIS B SURFACE AG Negative (Negative)
--- NOTE | 2017-11-13 11:15 | NUR ---
Nutrition Consult received for "other." Per ICU rounds, pt will possibly discharge today, after nephro consult. Pt has h/o ESRD on HD, DM, HTN, PVD, CAD, afib. She missed her dialysis [employer] and was admitted with HTN. Dialyzed yday. She has had renal and DM education in past. RX: vanc, warfarin, insulin. Renal diet with 1500mL gluid restriction. Wt: 132-142# fluctuation. +BM yday. Has poor eyesight and no teeth, per history. No nutritional interventions needed today. Possible discharge.
[2017-11-13 11:24] VITALS: BP 120/53
[2017-11-13 11:53] LABS: CALCIUM 7.9 mg/dL (8.5-10.1); CREATININE 4.1 mg/dL (0.6-1.3)
[2017-11-13 15:57] VITALS: BP 173/68
--- NOTE | 2017-11-13 17:37 | NUR ---
PATIENT HAS PROGRESSED WELL TOWARDS GOALS. HEART RATE HAS REMAINED IN UPPER 50'S IN THE LAST SIX HOURS. CARDIOLOGY TO STILL SEE PATIENT. PATIENT WILL REMAIN IN HOSPITAL OVERNIGHT. NEPHROLOGY TO STILL SEE PATIENT ALSO. PATIENT UPDATED THAT SHE WILL NOT BE GOING HOME TONIGHT. PRESSURES ARE STARTING TO RISE, PRN CLONIDINE GIVEN, WILL CONTINUE TO MONITOR. NO PAIN, NAUSEA OR SHORTNESS OF AIR. PATIENT STILL MED/TELE STATUS. BED IN LOWEST POSITION, CALL LIGHT IN REACH, SENIOR IT SPECIALIST IN PLACE.
[2017-11-13 20:00] VITALS: BP 170/69
[2017-11-14] VITALS (7 sets, daily range): BP systolic 114–196; BP diastolic 44–86
[2017-11-14 03:26] LABS: INR 1.1; PROTIME 10.7 Seconds (9.20-11.50)
--- NOTE | 2017-11-14 04:45 | NUR ---
PT CONTINUES ON RA. PT SB ON MONITOR. PT CONTINUES WITH ELEVATED BPs AND GIVEN SEVERAL PRN DOSES. CALL WAS PLACED TO CARDIOLOGY REGARDING CONTINUED BP READINGS WHEN NO CALL BACK WAS RECEIVED, SPOKE TO DR. TOURE REGARDING PT STATUS AND HE SAID TO JUST MONITOR. PT AFEBRILE.
--- NOTE | 2017-11-14 10:04 | NUR ---
ASSUMED PT CARE 0730. PT A/O X'S 4. HR 50'S - 60'S. SINUS RHYTHM. PT C/O OF NAUSEA. PRN ZOFRAN ADMINISTERED. DIALYSIS STARTED ABOUT 0830 IN ROOM. BP ELEVATED SYSTOLIC OF 213. DIALYSIS NURSE REQUESTED TO WAIT A FEW MINUTES BEFORE GIVEN HYPERTENSIVE MEDICATION. NOTIFIED AND ALSO OKAY WAITING BEFORE GIVEN MEDICATION TO LOWER BP FLUID REMOVED WITH DECREASE BP. WILL CONTINUE TO MONITOR.
--- NOTE | 2017-11-14 13:09 | NUR ---
WOUND CARE NOTE: CONSULT RECEIVED FOR RIGHT FOOT. PATIENT PRESENTS WITH A RUPTURED BLISTER TO THE PLANTAR SURFACE OF HER FOOT, EXTENDING MEDIALLY TO SIDE OF FOOT. ALEXANDR-WOUND RED. WOUND BED IS PINK, MOIST. DRAINING YELLOW DRAINAGE, MODERATE AMOUNT. PALPABLE PEDAL PULSE. WOUND MEASURES 9.5X9X0.1. WOUND GENTLY CLEANSED WITH WOUND CLEANSER, PATTED DRY. APPLIED OPTIFOAM AG AND SECURED WITH A KERLIX. PATIENT TOLERATED DRESSING CHANGE WELL. EDUCATED PATIENT ON: IMPORTANCE OF KEEPING OFF FOOT TO PROMOTE HEALING TIGHT BLOOD GLUCOSE CONTROL NUTRITION FOR WOUND HEALING NEED TO FOLLOW UP WITH WOUND CENTER FOR WOUND CARE PATIENT COMMUNICATED UNDERSTANDING TO ALL PATIENT DECLINES HOME HEALTH, STATES HER SON OR HIS GIRLFRIEND WILL CHANGE THE DRESSING FOR HER. EDUCATED PATIENT ON IMPORTANCE OF WHOMEVER WILL BE CHANGING THE DRESSING TO WASH THEIR HANDS PRIOR AND THE DRESSING COULD BE LEFT IN PLACE FOR UP TO 3 DAYS UNLESS THE DRAINAGE ON THE DRESSING STARTED DRAINING THROUGH, COMMUNICATED UNDERSTANDING TO ALL. RECOMMEND KEEP OFF FOOT TIGHT BLOOD GLUCOSE CONTROL Q3 DAY DRESSING CHANGES FOLLOW UP IN WOUND CENTER-DR. ALVAREZ 11/21/17 AT 1300 ENCOURAGE GOOD NUTRITION
[2017-11-14] MEDS ORDERED: PACERONE 200 M200 M1 PO (13:22)
[2017-11-14] MEDS ORDERED: AUGMENTIN PO (13:37)
[2017-11-14] MEDS ORDERED: CLONIDINE HCL0.2 M2 PO (13:41)
--- NOTE | 2017-11-14 13:47 | NUR ---
PT REFUSING HOME HEALTH
--- NOTE | 2017-11-14 14:16 | NUR ---
NOTIFIED EARLIER BY NURSING THAT PT IS BEING DISCHARGED, SHE HAS REFUSED HOME HEALTH. CALLED [facility] ([phone]) TO LET THEM KNOW OF DISCHARGE. FAXED ([phone]) RENAL CONSULT AND LAB RESULTS TO THE DIALYSIS UNIT.
--- NOTE | 2017-11-14 16:27 | NUR ---
RECEIVED DISCHARGE ORDERS. IV AND RE ETCHER DC'D. BP ON LEFT ARM HIGH. RECHECK BP ON RIGHT LEG AND BP WITHIN NORMAL LIMITS. PT INSTRUCTED ON NEW MEDICATIONS AND DOSAGE CHANGES. ALL BELONGINS PACKED UP. RIGHT FOOT DRESSING CHANGED TODAY BY WOUND CARE. PICTURE PLACED IN CHART. SCRIPTS GIVEN. CARE NOTES GIVEN. CLARIFIED METOPROLOL PER DR REQUEST. PT NOT TO TAKE METOPROLOL AT HOME. PT REPORTS ER DR GAVE HER A SCRIPT. BEFORE SHE WAS ADMITTED INTO HOSPTIAL. PT'S PHARMACY CALLED MEDICATION WAS KEFLEX. PT TOLD NOT TO TAKE THAT MEDICATION BUT TO TAKE SCRIPT GIVEN TODAY.
--- NOTE | 2017-11-15 08:16 | NUR ---
P.T. ORDERS RECEIVED 11/14/17. PT DISCHARGED 11/14/17 PRIOR TO COMPLETION OF P.T. EVAL.
--- NOTE | 2017-11-17 17:42 | CON ---
[address] [address] CONSULTATION Name: ERIN GRISSOM Room: [address] IN M.R.#: [id number] Admission: 11/11/17 Attend Phys: Rosaura Cruz Discharge: 11/14/17 Date of : 59 Report #: [id number] THIS REPORT FOR: //name// CC: Maribell Quintanilla DATE OF SERVICE: 11/13/2017 CARDIOLOGY CONSULTATION HISTORY OF PRESENT ILLNESS: The patient is a 62-year-old single white female who I was asked to see in the hospital today after she is noted to be bradycardic. The patient has an extensive and complicated past medical history. She has a long history of diabetes. She eventually underwent quadruple coronary artery bypass surgery in [facility] in 2008. She has been followed by my partner, Dr. Ramirez. Three years ago, she developed end-stage renal disease, has been on hemodialysis. She currently has a fistula in her right arm as well as a temporary dialysis catheter. She also has a history of atrial fibrillation. She apparently has never been cardioverted. She has been on amiodarone. She stopped taking warfarin because of cost. She has a history of noncompliance. She actually had missed dialysis appointments. The patient is not very active. She has a history of PAD with previous stenting. She had a previous left below the knee amputation following a sore that did not heal. She was last admitted here to [facility] in July with aspiration pneumonia. She is also legally blind and basically wheelchair bound. The patient has been going to dialysis 3 days a week. Two days ago, she underwent dialysis. She was then sent from dialysis to the Emergency Room because her blood pressure is elevated. The patient denies recent chest pain. She has been short of breath. She notes occasional skipped heartbeat, but no syncope. She denied any fever. PAST MEDICAL HISTORY: Otherwise significant for carpal tunnel surgery, cataract extraction, hysterectomy, hypertension, diabetes, hyperlipidemia. MEDICATIONS: On admission, apparently consisted of metoprolol, aspirin, Lipitor, insulin, Plavix, clonidine, Celexa, warfarin, diltiazem. ALLERGIES: She has no known drug allergies. FAMILY HISTORY: Negative for heart disease. SOCIAL HISTORY: She is , lives with son in [place]. No smoking. Rarely drinks alcohol. REVIEW OF SYSTEMS: She has had no history of stroke, asthma, peptic ulcer disease, liver disease, cancer, psychiatric illness, [place] [address] CONSULTATION Name: ERIN GRISSOM Room: [address]#: [id number] Admission: 11/11/17 Attend Phys: Rosaura Cruz Discharge: 11/14/17 Date of : 59 Report #: [id number] PHYSICAL EXAMINATION: GENERAL: Revealed an elderly female lying in bed. She appeared in no distress. VITAL SIGNS: She had a blood pressure of 170/70, pulse is 50, she is afebrile. HEENT: She is anicteric. Conjunctivae pale. Mucous members are dry. NECK: Veins do not appear distended. No carotid bruits. CHEST: Clear to auscultation. CARDIOVASCULAR: Regular bradycardia. ABDOMEN: Soft, nontender. EXTREMITIES: Right lower extremity had no edema. Dorsalis pedis pulse cannot be palpated. SKIN: Cool and dry. NEUROLOGIC: Nonfocal. PSYCHIATRIC: Mood appeared somewhat depressed. LABORATORY DATA: Her ECG on admission showed sinus bradycardia with poor R-wave progression. Her workup, she had an echocardiogram in July of this year that showed left ventricular hypertrophy, ejection fraction 40%, left atrial enlargement, aortic sclerosis. Her x-rays since her admission included a portable chest x-ray that showed calcified aortic arch, normal pulmonary vasculature some atelectasis. Her lab work revealed sodium 133, potassium 4.0, BUN 23, creatinine 4.1. Liver function studies were normal. Troponin 0.06. BNP 35,000. Recent TSH 0.7. Her white blood cell count 7.1, hemoglobin 12.8. Previous nuclear stress test in 2016 showed no significant ischemia, ejection fraction 56%. IMPRESSION AND RECOMMENDATIONS: 1. Hypertension. The patient has been on clonidine. I would consider increasing the dose. 2. Sinus bradycardia. I would recommend decreasing the dose of her beta quoc. 3. History of atrial fibrillation. I would continue amiodarone. The patient was not interested in anticoagulation. 4. Peripheral artery disease. The patient has had previous stents. Currently on aspirin and Plavix. 5. End-stage renal disease. The patient on hemodialysis. 6. Coronary artery disease. Previous bypass surgery. No recent angina. 7. Diabetes. 8. Hyperlipidemia. The patient is on a statin drug. <ELECTRONICALLY SIGNED> By: Trevor Beck MD, FACC 11/17/17 1742 1811 [id number] Beck MD, FACC /nt
[2018-01-08] MEDS ORDERED: PLAVIX 75 MG TA75 M1 PO (17:09)
== END 2017-11-14 17:00 | disposition home or self-care (01) | DRG 602 ==
LOC: M.ERS 07:44 → M.TBA-ER 11:43 → M.ICU 11:43
PROVIDERS: Family Medicine; Internal Medicine Cardiovascular Disease; ADMIT Internal Medicine
DX: L03.116 Cellulitis of left lower limb (principal); N18.6 End stage renal disease; I16.1 Hypertensive emergency; I50.32 Chronic diastolic (congestive) heart failure; I13.2 Hypertensive heart and chronic kidney disease with heart failure and with stage 5 chronic kidney disease, or end stage renal disease; I25.10 Atherosclerotic heart disease of native coronary artery without angina pectoris; H54.7 Unspecified visual loss; E11.51 Type 2 diabetes mellitus with diabetic peripheral angiopathy without gangrene; F32.9 Major depressive disorder, single episode, unspecified; I48.91 Unspecified atrial fibrillation; E78.5 Hyperlipidemia, unspecified; D63.1 Anemia in chronic kidney disease; R00.1 Bradycardia, unspecified; Z90.710 Acquired absence of both cervix and uterus; Z95.1 Presence of aortocoronary bypass graft; Z79.01 Long term (current) use of anticoagulants; Z89.512 Acquired absence of left leg below knee; Z79.899 Other long term (current) drug therapy; Z79.82 Long term (current) use of aspirin; Z79.4 Long term (current) use of insulin

== ENCOUNTER → 2017-11-21 | Outpatient (CLI) | payer OTHER, MEDICAID ==
[~2017-11-21] MED LIST changes: +AMOX TR-K CLV1 EAC3 PO; +AUGMENTIN PO; +CATAPRESS3 TRANSDERM; +CLONIDINE HCL0.2 M2 PO; +COZAAR 50 MG TA50 M1 PO; +DOXYCYCLINE 10100 MG PO; +IMDUR 30 MG TAB30 M1 PO; +LANTUS100 UNIT/M SUBQ; +PACERONE 200 M200 M1 PO; +SANTYL OINTMENT30 G1 TP; +SPIRONOLACTONE25 MG PO
== END ==
LOC: M.WC 13:00
DX: E11.622 Type 2 diabetes mellitus with other skin ulcer (principal); L97.411 Non-pressure chronic ulcer of right heel and midfoot limited to breakdown of skin; T25.221D Burn of second degree of right foot, subsequent encounter; T31.0 Burns involving less than 10% of body surface; E11.51 Type 2 diabetes mellitus with diabetic peripheral angiopathy without gangrene; E11.36 Type 2 diabetes mellitus with diabetic cataract; E11.39 Type 2 diabetes mellitus with other diabetic ophthalmic complication; H40.9 Unspecified glaucoma; E11.22 Type 2 diabetes mellitus with diabetic chronic kidney disease; I13.2 Hypertensive heart and chronic kidney disease with heart failure and with stage 5 chronic kidney disease, or end stage renal disease; I50.9 Heart failure, unspecified; N18.6 End stage renal disease; I48.91 Unspecified atrial fibrillation; F32.9 Major depressive disorder, single episode, unspecified; Z90.710 Acquired absence of both cervix and uterus; Z99.2 Dependence on renal dialysis; X08.8XXD Exposure to other specified smoke, fire and flames, subsequent encounter

== ENCOUNTER 2017-11-23 05:53 | Inpatient (IN) | payer OTHER, MEDICAID ==
[~2017-11-23] VITALS: Ht 162.6 cm; Wt 65.4 kg
[~2017-11-23 05:53] MED LIST changes: -AMOX TR-K CLV1 EAC3 PO; -CATAPRESS3 TRANSDERM; -COZAAR 50 MG TA50 M1 PO; -DOXYCYCLINE 10100 MG PO; -IMDUR 30 MG TAB30 M1 PO; -LANTUS100 UNIT/M SUBQ; -SANTYL OINTMENT30 G1 TP; -SPIRONOLACTONE25 MG PO
[2017-11-23 06:00] VITALS: BP 210/91
[2017-11-23 06:33] LABS: BE -2.2 mmol/L (-2 to +3); HCO3 23.1 mmol/L (22.0-26.0); PCO2 41.7 mmHg (35.0-45.0); PO2 74.5 mmHg (75.0-100.0); pH 7.361 (7.340-7.450)
[2017-11-23 06:44] LABS: ABSOLUTE BASOPHILS 0.1 thou/uL (0.0-0.2); ABSOLUTE EOSINOPHILS 0.1 thou/uL (0.0-0.7); ABSOLUTE LYMPHOCYTES 1.2 thou/uL (0.8-5.3); ABSOLUTE MONOCYTES 0.4 thou/uL (0.0-1.2); ABSOLUTE NEUTROPHILS 6.3 thou/uL (1.6-8.1); BASOPHILS 0.8 %; EOSINOPHILS 1.7 %; HEMATOCRIT 38.4 % (37.0-47.0); HEMOGLOBIN 12.2 gm/dL (12.0-15.0); LYMPHOCYTES 14.8 %; MCH 30.1 pg (26.0-34.0); MCHC 31.8 g/dL (28.0-37.0); MCV 94.7 fL (80.0-100.0); MONOCYTES 4.4 %; MPV 11.9 fl. (7.2-11.1); NUCLEATED RBCS 0 /100WBC; PLATELET COUNT* 207 thou/uL (150-400); POLYS 78.3 %; RBC 4.05 mil/uL (4.20-5.00); RDW-CV 15.6 % (10.5-14.5); WBC 8.1 thou/uL (4.0-11.0)
[2017-11-23 06:47] LABS: APTT 25.5 Seconds (25.0-31.3); INR 1.1
[2017-11-23 06:58] LABS: ALKALINE PHOSPHATASE 165 U/L (46-116); ANION GAP 9 mmol/L (7-16); BUN 55 mg/dL (7-18); CALCIUM 8.7 mg/dL (8.5-10.1); CHLORIDE 93 mmol/L (98-107); CO2 25 mmol/L (21-32); CREATININE 4.4 mg/dL (0.6-1.3); POTASSIUM 4.4 mmol/L (3.5-5.1); SGOT 8 U/L (15-37); SGPT 8 U/L (30-65); SODIUM 127 mmol/L (136-145); TOTAL BILIRUBIN 0.4 mg/dL (<0.1-1.0); TOTAL PROTEIN 6.8 g/dL (6.4-8.2); TROPONIN-I LEVEL <0.06 ng/mL (<0.06)
[2017-11-23 07:04] LABS: GLUCOSE 732 mg/dL (70-99)
[2017-11-23 08:18] LABS: NT-PRO BRAIN NAT PEPTIDE > 35000 pg/mL (<300)
--- NOTE | 2017-11-23 08:32 | NUR ---
DR MORENO NOTIFIED THAT FINGER STICK STILL COTNINUES TO READ "HI"
[2017-11-23 08:44] VITALS: BP 178/88
[2017-11-23 09:10] VITALS: BP 154/86
[2017-11-23 11:45] VITALS: BP 160/92
[2017-11-23] MEDS ORDERED: NOVOLOG100 UNIT/1 SUBQ (12:41)
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
[2017-11-23 17:12] VITALS: BP 187/93
--- NOTE | 2017-11-23 19:06 | NUR ---
PAITNET RESTING IN BED. ORDER IS FOR BEDREST. ISATU AOX3 AND HAS SLIGHT CONFUSION. L BKA, RIGH LOWER EXT WOUNDS AND ISATU IS FOLLOWED IN WOUND CARE CENTER FOR CHRONIC WOUNDS. WOUNDS PHOTOGRAPHED AND DRESSING CHANGED TODAY. VITAL SIGNS TABLE. ISATU RECEIVED DIALYSIS TODAY. HOME MEDICATIONS RESTARTED. AFIB ON MONIOTR. HOURLY ROUNDING COMPLETDFOR PATIENT SAFETY.
[2017-11-23 20:00] VITALS: BP 190/76
[2017-11-24] VITALS: BP 141/78
[2017-11-24 04:00] VITALS: BP 142/60
--- NOTE | 2017-11-24 07:01 | NUR ---
SELPT ALL NIGHT WITHOUT COMPLAINTS. TAKING PO MEDS WITHOUT DIFFICULTIES. DENIES COMPLAINTS OR PAIN OR DISCOMFORT. NO SIGN OF DISTRESS. CONT. WITH CURRENT PLAN OF CARE AT THIS TIME.
--- NOTE | 2017-11-24 07:32 | CON ---
[address] [address] CONSULTATION Name: ERIN GRISSOM Room: [address] IN M.R.#: [id number] Admission: 11/23/17 Attend Phys: Kyle Abbasi Discharge: Date of : 59 Report #: [id number] THIS REPORT FOR: //name// CC: Marla Garcia DATE OF SERVICE: 11/23/2017 ATTENDING PHYSICIAN: REASON FOR EVALUATION: Early sepsis. HISTORY OF PRESENT ILLNESS: Chart reviewed, patient examined. This 62-year-old woman with extensive medical history, I am very familiar with her diabetes mellitus type 1, has been complicated by severe vasculopathy, generalized history of lower extremity issues; again end-stage renal disease, on dialysis, who presented with a fairly acute onset of weakness, disorientation. She was encephalopathic. It is not clear that she had fevers, chills. Evaluation noted markedly elevated blood sugar. It is notable she makes very little urine. Chest x-ray was otherwise unremarkable. Lactic acid of 1.4, On discussion with the dialysis nurse, it is confirmed that she had run out of her insulin, was not taking that. She did miss dialysis earlier this week on Monday, which would have been 11/21. At this point, she does arouse, has had some dyskinesia I think associated with mouth and tongue, given a dose of levofloxacin. ALLERGIES: None known. MEDICATIONS: Include amiodarone, citalopram, pyridostigmine, ferrous sulfate, cholecalciferol, cyanocobalamin, allopurinol, atorvastatin, trazodone, insulin glargine. Aspirin, warfarin, calcium acetate, levofloxacin, clonidine, diltiazem, famotidine. PAST MEDICAL HISTORY: As described above, diabetes mellitus type 1, history of hypertension. End-stage renal disease, on dialysis. Known coronary artery disease with previous coronary artery bypass grafting. Peripheral vascular disease with previous stenting, left below knee amputation in 2016, history of depression, chronic atrial fibrillation, cardiomyopathy with congestive heart failure and does have some visual disturbances. SOCIAL HISTORY: Nonsmoker, no ethanol. FAMILY HISTORY: Noncontributory. REVIEW OF SYSTEMS: As above. She denies significant abdominal related discomfort including nausea, no diarrhea. [place] [address] CONSULTATION Name: ERIN GRISSOM Room: [address]#: [id number] Admission: 11/23/17 Attend Phys: Kyle Abbasi Discharge: Date of : 59 Report #: [id number] PHYSICAL EXAMINATION: GENERAL: She is chronically ill appearing, undernourished. Again, doing the facial involuntary movements. VITAL SIGNS: Temperature 98.4, pulse 108, respirations 11, blood pressure 160/92. SKIN: Warm, dry, no rashes. NECK: Apparently supple. LUNGS: Diminished breath sounds. HEART: Tachycardic, irregular. There is a soft systolic murmur. ABDOMEN: Soft, mildly distended. There are no peritoneal signs. Really, no tenderness. GENITOURINARY AND RECTAL: Deferred. LABORATORY DATA: Initial blood sugar greater than 500. ABGs: PH 7.361, pCO2 of 41.7, pO2 of 74.5 that was on 2 liters. CBC: White count of 8.1, H and H and 12.2 and 38.4, platelets of 207. Chest x-ray, nothing acute, some mild medial basilar atelectasis. PT of 11.0, INR of 1.1. Lactic acid 1.4. Electrolytes: Sodium 127, potassium 4.4, chloride 93, bicarbonate is 25, anion gap 9, BUN and creatinine 55 and 4.4, glucose 732. LFTs unremarkable except for an alkaline phosphatase of 165, albumin of 3.0, total protein of 6.8. Blood cultures are pending. ASSESSMENT: Hyperglycemia, has certainly confusion, may well be related to not taking her insulin. She does have Levaquin on board. I think we will discontinue that, should be maintained for another 24-48 hours to see how she does clinically, await blood culture results. She is quite ill, although may well be noninfectious etiology. We will follow expectantly. <ELECTRONICALLY SIGNED> By: Raymundo Sinclair MD 11/24/17 0732 1434 [id number] Sinclair MD /nt
--- NOTE | 2017-11-24 11:16 | NUR ---
CM SPOKE TO THE PATIENT TO DISCUSS HOME SITUATION, DISCHARGE PLANNING, AND TO INFORM OF THE ROLE OF CM. PATIENT KNOWN TO THIS CM FROM A PREVIOUS ADMISSION. PATIENT ALERT AND ORIENTED. PATIENT RESIDES AT HOME WITH HER SON MARK AND HE ASSIST HER AT HOME WITH CARES. PATIENT USES A WHEELCHAIR AT HOME FOR MOBILITY. PATIENT RECEIVES HD AT [facility]. PATIENT HAS A HX OF SN[facility]. PATIENT HAS A HX OF HH WITH SPECIALIZED HOME CARE. PATIENT DECLINES HH AT THIS TIME. PATIENT INFORMS CM THAT HER [facility] IN [place]. PATIENT INFORMED NURSING THAT SHE HADN'T BEEN TAKING HER INSULIN DUE TO COST. CM [facility] [place] AND THEY INFORM THAT THE PATIENT HAS NOVALOG READY AT THE PHARMACY AND THE COST IS $8.35. CM FAXED THE HUMALOG PRESCRIPTION AND WILL FOLLOW-UP WITH PHARMACY TO INQUIRE ABOUT COST, AND DISCUSS WITH PATIENT. CM WILL REMAIN AVAILABLE TO ASSIST AND FOLLOW NEEDED.
--- NOTE | 2017-11-24 12:16 | NUR ---
CM SPOKE TO THE PATIENT TO DISCUSS HOME SITUATION, DISCHARGE PLANNING AND TO INFORM OF THE ROLE OF CM. PATIENT IS KNOWN TO THIS CM FROM A PREVIOUS ADMISSION. PATIENT RESIDES AT HOME WITH SON MARK AND HE ASSIST HER AT HOME WITH CARES. PATIENT USES A WHEELCHAIR FOR MOBILITY. PATIENT RECEIVES HD AT [facility]. PATIENT HAS A HX OF SNF AT [facility]. PATIENT HAS A HX OF HH WITH [facility] PATIENT DECLINED HH SERVICES, DISPITE ENCOURAGEMENT. CM WAS INFORMED THAT THE PATIENT HADN'T BEEN TAKING INSULIN DUE TO COST. CM SPOKE TO [facility] AND THEY INFORM THAT THE PATIENT HAS A PRESCRIPTION OF NOVALOG READY AND THE COST IS $8.35. CM WILL REMAIN AVAILABLE TO ASSIST AND FOLLOW NEEDED.
[2017-11-24 12:26] VITALS: BP 184/74
[2017-11-24 13:50] VITALS: BP 184/74
[2017-11-24] MEDS ORDERED: LANTUS100 UNIT/M SUBQ (14:13)
--- NOTE | 2017-11-24 17:04 | EKG ---
[place] [address] ELECTROCARDIOGRAM REPORT Name: ERIN GRISSOM Room: [address] IN ..#: [id number] Admission: 11/23/17 Attend Phys: Kyle Abbasi Discharge: Date of : 59 Report #: [id number] THIS REPORT FOR: //name// [facility] ED Test Date: 2017-11-23 Test Time: 06:13:11 Pat Name: ERIN GRISSOM Department: Room: Gender: [employer] Furnace Tender: JULIOCESAR Morales : 1955 Requested By: Shawn Leonardo Order Number: [id number] MD: Alexis Ramirez Measurements Intervals [place] Rate: 84 P: VA: QRS: 70 QRSD: 98 T: 255 QT: 449 QTc: 531 Interpretive Statements Atrial fibrillation Ventricular premature complex Anterior infarct, old Nonspecific T abnormalities, lateral leads Prolonged QT interval Compared to ECG 11/11/2017 07:51:03 Ventricular premature complex(es) now present T-wave abnormality now present Sinus rhythm no longer present Myocardial infarct finding still present Electronically Signed On 11-24-2017 17:03:59 CDT by Alexis Ramirez [email or web address] <ELECTRONICALLY SIGNED> By: Alexis Ramirez MD, FACC 11/24/17 1703 2 2 Alexis Ramirez MD, FAC /EPI
--- NOTE | 2017-11-27 09:53 | CON ---
[address] [address] CONSULTATION Name: JACIELERIN Room: [address] IN M.R.#: [id number] Admission: 11/23/17 Attend Phys: Kyle Abbasi Discharge: 11/24/17 Date of : 59 Report #: [id number] THIS REPORT FOR: //name// CC: Marla Garcia DATE OF SERVICE: 11/23/2017 REQUESTING PHYSICIAN: Agustin Garcia DO. REASON FOR CONSULTATION: Assistance in providing dialysis. HISTORY OF PRESENT ILLNESS: The patient is a 62-year-old female with end-stage renal disease, very well known to us. She has severe peripheral vascular disease and history of coronary artery disease, presents with an altered mental status, admitted to the hospital, now she feels much better. She is examined on dialysis. PHYSICAL EXAMINATION: GENERAL: She is awake and alert. VITAL SIGNS: Stable. HEENT: Pupils are round. NECK: Supple. LUNGS: Decreased air movement. CARDIOVASCULAR: Regular rate. LABORATORY DATA: Reviewed. ASSESSMENT AND PLAN: End-stage renal disease. The patient admitted for altered mental status. She is improving. I will provide dialysis while she is in the hospital. <ELECTRONICALLY SIGNED> By: Ranjit Parks MD 11/27/17 0953 1706 0124AlexMD FRANCOIS Ingram
[2018-01-08] MEDS ORDERED: PLAVIX 75 MG TA75 M1 PO (17:09)
== END 2017-11-24 21:30 | disposition home or self-care (01) | DRG 637 ==
LOC: M.ERS 05:53 → M.TBA-ER 07:58 → M.2W 07:58
PROVIDERS: Emergency Medicine Emergency Medical Services; ADMIT Internal Medicine
DX: E11.10 Type 2 diabetes mellitus with ketoacidosis without coma (principal); J96.91 Respiratory failure, unspecified with hypoxia; G93.41 Metabolic encephalopathy; N18.6 End stage renal disease; J96.92 Respiratory failure, unspecified with hypercapnia; I13.2 Hypertensive heart and chronic kidney disease with heart failure and with stage 5 chronic kidney disease, or end stage renal disease; I50.32 Chronic diastolic (congestive) heart failure; I42.9 Cardiomyopathy, unspecified; I25.10 Atherosclerotic heart disease of native coronary artery without angina pectoris; I48.2 Chronic atrial fibrillation; E10.51 Type 1 diabetes mellitus with diabetic peripheral angiopathy without gangrene; H54.40 Blindness, one eye, unspecified eye; F32.9 Major depressive disorder, single episode, unspecified; Z90.710 Acquired absence of both cervix and uterus; Z95.1 Presence of aortocoronary bypass graft; Z95.820 Peripheral vascular angioplasty status with implants and grafts; Z99.2 Dependence on renal dialysis; Z89.512 Acquired absence of left leg below knee; Z87.81 Personal history of (healed) traumatic fracture; Z79.4 Long term (current) use of insulin; Z79.82 Long term (current) use of aspirin; Z79.01 Long term (current) use of anticoagulants; Z79.899 Other long term (current) drug therapy; Z82.49 Family history of ischemic heart disease and other diseases of the circulatory system; Z80.8 Family history of malignant neoplasm of other organs or systems

== ENCOUNTER → 2017-12-06 | Outpatient (CLI) | payer OTHER, MEDICAID ==
[~2017-12-06] MED LIST changes: +AMOX TR-K CLV1 EAC3 PO; +CATAPRESS3 TRANSDERM; +COZAAR 50 MG TA50 M1 PO; +DOXYCYCLINE 10100 MG PO; +IMDUR 30 MG TAB30 M1 PO; +LANTUS100 UNIT/M SUBQ; +SANTYL OINTMENT30 G1 TP; +SPIRONOLACTONE25 MG PO
== END ==
LOC: M.WC 11-29 04:12
DX: E11.622 Type 2 diabetes mellitus with other skin ulcer (principal); I70.234 Atherosclerosis of native arteries of right leg with ulceration of heel and midfoot; L97.411 Non-pressure chronic ulcer of right heel and midfoot limited to breakdown of skin; E11.36 Type 2 diabetes mellitus with diabetic cataract; E11.39 Type 2 diabetes mellitus with other diabetic ophthalmic complication; H40.9 Unspecified glaucoma; E11.22 Type 2 diabetes mellitus with diabetic chronic kidney disease; I13.2 Hypertensive heart and chronic kidney disease with heart failure and with stage 5 chronic kidney disease, or end stage renal disease; N18.6 End stage renal disease; I50.9 Heart failure, unspecified; E11.51 Type 2 diabetes mellitus with diabetic peripheral angiopathy without gangrene; I48.91 Unspecified atrial fibrillation; F32.9 Major depressive disorder, single episode, unspecified; Z99.2 Dependence on renal dialysis; Z90.710 Acquired absence of both cervix and uterus

== ENCOUNTER → 2017-12-08 | Outpatient (CLI) | payer OTHER, MEDICAID | LOC: M.ULTRA 10:04 | DX: I15.0 Renovascular hypertension (principal); R18.8 Other ascites ==

== ENCOUNTER → 2017-12-11 | Outpatient (CLI) | payer OTHER, MEDICAID | LOC: M.CT 10:10 | DX: I70.1 Atherosclerosis of renal artery (principal); K76.0 Fatty (change of) liver, not elsewhere classified; I51.7 Cardiomegaly; L97.909 Non-pressure chronic ulcer of unspecified part of unspecified lower leg with unspecified severity; Z89.512 Acquired absence of left leg below knee ==

== ENCOUNTER 2017-12-13 16:13 | Inpatient (IN) | payer OTHER, MEDICAID ==
[~2017-12-13] VITALS: Ht 162.6 cm; Wt 58.5 kg
[~2017-12-13 16:13] MED LIST changes: -AMOX TR-K CLV1 EAC3 PO; -CATAPRESS3 TRANSDERM; -COZAAR 50 MG TA50 M1 PO; -DOXYCYCLINE 10100 MG PO; -IMDUR 30 MG TAB30 M1 PO; -SANTYL OINTMENT30 G1 TP; -SPIRONOLACTONE25 MG PO
[2017-12-13 16:16] VITALS: BP 190/84
[2017-12-13 16:50] LABS: ABSOLUTE BASOPHILS 0.1 thou/uL (0.0-0.2); ABSOLUTE EOSINOPHILS 0.1 thou/uL (0.0-0.7); ABSOLUTE LYMPHOCYTES 1.3 thou/uL (0.8-5.3); ABSOLUTE MONOCYTES 0.6 thou/uL (0.0-1.2); ABSOLUTE NEUTROPHILS 7.2 thou/uL (1.6-8.1); BASOPHILS 1.2 %; EOSINOPHILS 0.9 %; HEMOGLOBIN 11.4 gm/dL (12.0-15.0); LYMPHOCYTES 13.8 %; MCH 30.1 pg (26.0-34.0); MCHC 32.5 g/dL (28.0-37.0); MCV 92.6 fL (80.0-100.0); MONOCYTES 6.2 %; MPV 10.3 fl. (7.2-11.1); NUCLEATED RBCS 0 /100WBC; PLATELET COUNT* 258 thou/uL (150-400); POLYS 77.9 %; RBC 3.78 mil/uL (4.20-5.00); RDW-CV 16.5 % (10.5-14.5); WBC 9.2 thou/uL (4.0-11.0)
[2017-12-13 17:05] LABS: INR 1.2; PROTIME 11.6 Seconds (9.20-11.50)
[2017-12-13 17:06] LABS: ANION GAP 14 mmol/L (7-16); BUN 41 mg/dL (7-18); CHLORIDE 96 mmol/L (98-107); CO2 28 mmol/L (21-32); CREATININE 5.1 mg/dL (0.6-1.3); GLUCOSE 232 mg/dL (70-99); POTASSIUM 4.5 mmol/L (3.5-5.1); SODIUM 138 mmol/L (136-145)
[2017-12-13 17:17] LABS: ALBUMIN 3.3 g/dL (3.4-5.0); ALKALINE PHOSPHATASE 127 U/L (46-116); LIPASE 113 U/L (73-393); SGOT 8 U/L (15-37); SGPT 10 U/L (30-65); TOTAL BILIRUBIN 0.5 mg/dL (<0.1-1.0); TROPONIN-I LEVEL <0.06 ng/mL (<0.06)
[2017-12-13 17:23] LABS: NT-PRO BRAIN NAT PEPTIDE > 35000 pg/mL (<300)
[2017-12-13 19:09] VITALS: BP 158/72
[2017-12-13 19:31] VITALS: BP 172/78
[2017-12-13 23:00] VITALS: BP 187/71
[2017-12-14 03:30] VITALS: BP 117/66
[2017-12-14 04:55] LABS: HEMATOCRIT 32.6 % (37.0-47.0); HEMOGLOBIN 10.5 gm/dL (12.0-15.0); MCH 30.3 pg (26.0-34.0); MCHC 32.4 g/dL (28.0-37.0); MCV 93.7 fL (80.0-100.0); MPV 9.8 fl. (7.2-11.1); RBC 3.48 mil/uL (4.20-5.00); RDW-CV 16.5 % (10.5-14.5)
[2017-12-14 05:13] LABS: INR 1.2
[2017-12-14 05:15] LABS: CALCIUM 7.8 mg/dL (8.5-10.1); CREATININE 5.6 mg/dL (0.6-1.3); MAGNESIUM 2.1 mg/dL (1.8-2.4); POTASSIUM 4.6 mmol/L (3.5-5.1)
[2017-12-14 07:45] VITALS: BP 147/58
[2017-12-14 11:03] VITALS: BP 168/64
--- NOTE | 2017-12-14 14:01 | EKG ---
[place] [address] ELECTROCARDIOGRAM REPORT Name: ERIN GRISSOM Room: [address] ADM IN .R.#: [id number] Admission: 12/13/17 Attend Phys: Srinath Reynolds MD Discharge: Date of : 59 Report #: [id number] THIS REPORT FOR: //name// [facility] ED Test Date: 2017-12-13 Test Time: 16:17:52 Pat Name: ERIN GRISSOM Department: Room: Gender: F Waterway Traffic Checker: [place] : 1955 Requested By: Leonard Joyner Order Number: [id number] MD: James Cerda Measurements Intervals [place] Rate: 102 P: IA: QRS: 120 QRSD: 99 T: -34 QT: 425 QTc: 554 Interpretive Statements Atrial fibrillation Consider anterior infarct Borderline repol abnrm, inferolateral leads Prolonged QT interval Baseline wander in lead(s) V5 Compared to ECG 11/23/2017 06:13:11 Ventricular premature complex(es) no longer present T-wave abnormality no longer present Myocardial infarct finding still present Electronically Signed On 12-14-2017 14:01:34 CDT by James Cerda [email or web address] <ELECTRONICALLY SIGNED> By: James Cerda MD, FACC 12/14/17 1401 1617 1617 James Cerda MD, FACC /EPI
[2017-12-14 20:00] VITALS: BP 156/59
[2017-12-15] VITALS (7 sets, daily range): BP systolic 158–220; BP diastolic 58–82
[2017-12-15 04:48] LABS: HEMATOCRIT 35.6 % (37.0-47.0); HEMOGLOBIN 11.3 gm/dL (12.0-15.0); MCH 29.9 pg (26.0-34.0); MCHC 31.7 g/dL (28.0-37.0); MCV 94.1 fL (80.0-100.0); MPV 10.1 fl. (7.2-11.1); RBC 3.78 mil/uL (4.20-5.00); RDW-CV 16.6 % (10.5-14.5); WBC 6.3 thou/uL (4.0-11.0)
[2017-12-15 04:59] LABS: POTASSIUM 4.2 mmol/L (3.5-5.1)
[2017-12-15 05:03] LABS: CREATININE 2.6 mg/dL (0.6-1.3)
[2017-12-15 05:32] LABS: INR 1.2; PROTIME 11.7 Seconds (9.20-11.50)
[2017-12-16] VITALS (10 sets, daily range): BP systolic 169–214; BP diastolic 52–77
[2017-12-16 05:19] LABS: HEMATOCRIT 34.9 % (37.0-47.0); HEMOGLOBIN 11.2 gm/dL (12.0-15.0); MCH 30.3 pg (26.0-34.0); MCHC 32.2 g/dL (28.0-37.0); MCV 93.9 fL (80.0-100.0); MPV 9.9 fl. (7.2-11.1); RBC 3.71 mil/uL (4.20-5.00); RDW-CV 16.2 % (10.5-14.5); WBC 6.3 thou/uL (4.0-11.0)
[2017-12-16 05:34] LABS: CALCIUM 8.5 mg/dL (8.5-10.1); POTASSIUM 4.1 mmol/L (3.5-5.1)
[2017-12-16 05:35] LABS: INR 1.2; PROTIME 11.6 Seconds (9.20-11.50)
[2017-12-16 05:42] LABS: CREATININE 3.6 mg/dL (0.6-1.3)
[2017-12-17] VITALS (7 sets, daily range): BP systolic 105–190; BP diastolic 39–69
[2017-12-17 05:08] LABS: HEMATOCRIT 34.2 % (37.0-47.0); HEMOGLOBIN 11.2 gm/dL (12.0-15.0); MCH 30.8 pg (26.0-34.0); MCHC 32.6 g/dL (28.0-37.0); MCV 94.4 fL (80.0-100.0); MPV 10.4 fl. (7.2-11.1); RBC 3.62 mil/uL (4.20-5.00); RDW-CV 16.3 % (10.5-14.5); WBC 5.9 thou/uL (4.0-11.0)
[2017-12-17 05:09] LABS: INR 1.2; PROTIME 11.4 Seconds (9.20-11.50)
[2017-12-17 05:17] LABS: ALBUMIN 2.3 g/dL (3.4-5.0); CALCIUM 7.9 mg/dL (8.5-10.1); MAGNESIUM 1.9 mg/dL (1.8-2.4); PHOSPHORUS* 2.3 mg/dL (2.5-4.9)
[2017-12-17 05:21] LABS: CREATININE 2.1 mg/dL (0.6-1.3)
[2017-12-17 16:09] LABS: HEPATITIS B SURFACE AG Negative (Negative)
[2017-12-18] VITALS (7 sets, daily range): BP systolic 154–206; BP diastolic 51–80
[2017-12-18 04:52] LABS: INR 1.2; PROTIME 11.2 Seconds (9.20-11.50)
--- NOTE | 2017-12-18 18:37 | EKG ---
[place] [address] ELECTROCARDIOGRAM REPORT Name: JACIELERIN LILIAM Room: [address] ADM IN M.R.#: [id number] Admission: 12/13/17 Attend Phys: Srinath Reynolds MD Discharge: Date of : 59 Report #: [id number] THIS REPORT FOR: //name// [facility] Test Date: 2017-12-16 Test Time: 13:57:15 Pat Name: ERIN GRISSOM Department: Room: [address] Gender: F Diesel Instructor: UNK : 1955 Requested By: Marshall Benito Order Number: [id number] Giuliana MD: Curt Starr Measurements Intervals [place] Rate: 55 P: 94 PA: 222 QRS: 113 QRSD: 98 T: -4 QT: 533 QTc: 510 Interpretive Statements Sinus rhythm Prolonged PA interval Left posterior fascicular block Anterior infarct, old Baseline wander in lead(s) V2 Compared to ECG 12/13/2017 16:17:52 First degree AV block now present Left posterior fascicular block now present Atrial fibrillation no longer present Prolonged QT interval no longer present Myocardial infarct finding still present Electronically Signed On 12-18-2017 18:37:45 CDT by Curt Starr [email or web address] <ELECTRONICALLY SIGNED> By: Curt Starr MD, [facility] 12/18/17 1837 1357 1357 Curt Starr MD, [facility] /EPI
[2017-12-19] VITALS: BP 167/53
[2017-12-19 04:00] VITALS: BP 164/56
[2017-12-19 05:31] LABS: INR 1.3; PROTIME 12.6 Seconds (9.20-11.50)
[2017-12-19 08:00] VITALS: BP 193/65
[2017-12-19] MEDS ORDERED: PANTOPRAZOLE SO40 M1 PO (08:06)
[2017-12-19] MEDS ORDERED: CARAFATE 1 GM TA1 G1 PO (08:06)
[2017-12-19] MEDS ORDERED: CATAPRESS3 TRANSDERM (08:06)
[2017-12-19] MEDS ORDERED: HYDRALAZINE 2525 MG PO (08:06)
[2017-12-19 10:44] VITALS: BP 193/65
[2017-12-19 11:25] VITALS: BP 183/57
--- NOTE | 2017-12-19 16:18 | PROC ---
[address] [address] PROCEDURE REPORT Name: JACIELERIN LILIAM Room: [address] IN M.R.#: [id number] Admission: 12/13/17 Attend Phys: Srinath Reynolds MD Discharge: Date of : 59 Report #: [id number] THIS REPORT FOR: //name// CC: Srinath Quintanilla DATE OF SERVICE: 12/15/2017 REASON FOR PROCEDURE: Persistent GERD and chest pain. MEDICATION GIVEN DURING THIS PROCEDURE: Include propofol administered by chief technology officer. PHYSICAL EXAMINATION: VITAL SIGNS: Reveals normal vitals. LUNGS: Clear. CARDIOVASCULAR: Regular. ABDOMEN: Soft, nontender, nondistended. Bowel sounds are positive. PROCEDURE PERFORMED: Esophagogastroduodenoscopy. DESCRIPTION OF PROCEDURE: An informed consent was obtained from the patient including the nature, risks, benefits and alternatives described. The patient was placed in the left lateral decubitus position with oximetry, blood pressure and cardiac monitoring. IV sedation was titrated with medication to effect. The T[employer]rol[employer] video upper endoscope was then advanced under direct vision into the esophagus and there was grade D esophagitis with superficial ulcerations in the distal and mid esophagus. No evidence for Dominguez's mucosa was noted. The stomach was then entered, insufflated and examined in its entirety and there was gastritis in the antrum and body. Biopsies were obtained to rule out H. pylori. There was a small hiatal hernia. The pylorus was widely patent, revealing a normal duodenal bulb and distal duodenum. Scope and air were then withdrawn, and the patient was sent to the recovery room in stable condition. Thank you for allowing me to participate in the care of this patient. IMPRESSION: 1. Grade D lactated esophagitis with superficial esophageal ulcers in the distal to mid esophagus. 2. Hiatal hernia, small to moderate. 3. Gastritis, status post biopsy. RECOMMENDATION: We will recommend double dose of Protonix and Carafate [address] [place] [address] PROCEDURE REPORT Name: JACIELERIN Room: [address] IN [facility].#: [id number] Admission: 12/13/17 Attend Phys: Srinath Reynolds MD Discharge: Date of : 59 Report #: [id number] per 10 mL x 2 months and repeat EGD in 2 months. We will make further recommendation once biopsy results are available. <ELECTRONICALLY SIGNED> By: Panda Bagley MD 12/19/17 1618 1351 0025Panda Bagley MD /nt
--- NOTE | 2017-12-20 12:19 | CON ---
[facility] [address] [place] [address] CONSULTATION Name: ERIN GRISSOM Room: [address] IN M.R.#: [id number] Admission: 12/13/17 Attend Phys: Srinath Reynolds MD Discharge: 12/19/17 Date of : 59 Report #: [id number] THIS REPORT FOR: //name// CC: Srinath Quintanilla DATE OF SERVICE: 12/14/2017 REQUESTING PHYSICIAN: Srinath Reynolds M.D. REASON FOR CONSULTATION: Assistance providing dialysis. HISTORY OF PRESENT ILLNESS: The patient is a very pleasant 62-year-old white female, very well known to me, medical history significant for diabetes mellitus type 1 complicated by diabetic nephropathy and end-stage renal disease. She is on chronic hemodialysis on Tuesdays, , and Monday schedule. She also has history of anemia, peripheral artery disease, history of hypertension. She was admitted yesterday with complaints of intractable nausea and vomiting for the last several days. PAST MEDICAL HISTORY: As I mentioned earlier. MEDICATIONS: Prior to admission reviewed. PHYSICAL EXAMINATION: GENERAL: She is awake, alert, oriented, states that she feels better now. VITAL SIGNS: Her blood pressure is 147/58, heart rate 43, afebrile. HEENT: Pupils are round. NECK: Supple. LUNGS: With decreased air movements. CARDIOVASCULAR: Distant heart tones. ABDOMEN: Soft. EXTREMITIES: She has left below knee amputation. She has also tunneled dialysis catheter in the right internal jugular vein. LABORATORY DATA: Report revealed potassium of 4.6, BUN 44, creatinine 5.8, hemoglobin of 10.5. ASSESSMENT: A 62-year-old female with end-stage renal disease, admitted with intractable nausea and vomiting, most likely due to diabetic gastroparesis. Today is her dialysis day and she will be dialyzed today. I will provide dialysis while she is in the hospital. The rest of the problems will be worked up by [place] [address] CONSULTATION Name: JACIELERIN GUNTER Room: [address] IN M.R.#: [id number] Admission: 12/13/17 Attend Phys: Sirnath Reynolds MD Discharge: 12/19/17 Date of : 59 Report #: [id number] Thank you very much for asking my assistance providing dialysis. <ELECTRONICALLY SIGNED> By: Ranjit Parks MD 12/20/17 1219 1017 1401Adc Parks MD /PMT
--- NOTE | 2017-12-21 16:59 | CON ---
[address] [address] CONSULTATION Name: JACIELERIN RICKETTS Room: [address] IN M.R.#: [id number] Admission: 12/13/17 Attend Phys: Srinath Reynolds MD Discharge: 12/19/17 Date of : 59 Report #: [id number] THIS REPORT FOR: //name// CC: Sujey Starr MD [facility] Marla Quintanilla DO DATE OF SERVICE: 12/14/2017 REFERRING PHYSICIANS: Srinath Reynolds MD; Marla Quintanilla DO; Sujey Lock MD; Curt Starr MD, [facility] I have seen and examined the patient and agreed with plan that have been outlined by our nurse practitioner, Yareli Barron. The patient is very frustrating 62-year-old white female with multitude of medical problems including severe diabetic gastroparesis associated reflux esophagitis who has been noncompliant with recommendations to take medication as directed and to follow up as directed. She comes back in the hospital with recurrent nausea, vomiting with scant hematemesis and some mild dysphagia. She underwent a CT scan of the abdomen and pelvis that revealed markedly thickened distal esophagus with some retained food within the stomach compatible with probable gastroparesis. We will begin her on Protonix at this point in time to her IV and proceed with endoscopic evaluation of her GI tract tomorrow. She definitely needs to follow up as directed and will make dose adjustments with regards to her Reglan that she has been on in the past to help with her gastroparesis. <ELECTRONICALLY SIGNED> By: Facundo Bryan DO 12/21/17 1659 1727 220Facundo Bryan DO /nt
--- NOTE | 2017-12-21 16:59 | CON ---
[address] [address] CONSULTATION Name: ERIN GRISSOM Room: [address] IN M.R.#: [id number] Admission: 12/13/17 Attend Phys: Srinath Reynolds MD Discharge: 12/19/17 Date of : 59 Report #: [id number] THIS REPORT FOR: //name// CC: Srinath Quintanilla DO DICTATED BY: aYreli Barron [facility] DATE OF SERVICE: 12/14/2017 Please note, at the time of this dictation, the patient was seen and physically examined by myself. REASON FOR CONSULTATION: Acid reflux and vomiting. HISTORY OF PRESENT ILLNESS: This is a 62-year-old female who presented to the ER with worsening of her reflux for the last 3 days causing her to have some epigastric pain as well as vomiting and unable to keep anything down. She states her chest pain that she had is not similar to the chest pain that she has had when she was having a cardiac event. The patient has not been taking anything on a prescription basis for her acid reflux. She has just been eating a lot at times, she states morning and night for some time now. She states she no longer takes any Reglan for her gastroparesis either. She states she has not had any problems with eating or drinking up until 3 days ago when all of her symptoms got significantly severe. The patient did undergo an EGD back in 2015 for severe erosive esophagitis with mild food and fluid noted in the gastric and she was started on Reglan at that time, but she never followed up afterwards. It appears she has never had a colonoscopy by our records either. On the vomiting, she denied any hematemesis of anything at this time. ALLERGIES: No known drug allergies. MEDICATIONS: From home include clonidine, Cardizem, Coumadin, Celexa, glucagon, pyridostigmine, vitamin D, Desyrel, iron, calcium acetate, Lipitor, B12, allopurinol, aspirin, Lantus, and amiodarone. PAST MEDICAL HISTORY: Coronary artery disease, history of AFib, chronic; diastolic congestive heart failure, end-stage renal disease, type 1 diabetes, hypertension. She is blind in her right eye. PAST SURGICAL HISTORY: Hysterectomy, CABG x 4. She has had peripheral vascular stents placed, dialysis, a left BKA, hip fracture. FAMILY HISTORY: [place] [address] CONSULTATION Name: ERIN GRISSOM Room: [address]#: [id number] Admission: 12/13/17 Attend Phys: Srinath Reyonlds MD Discharge: 12/19/17 Date of : 59 Report #: [id number] SOCIAL HISTORY: Denies any alcohol, tobacco or illegal drug use at this time. REVIEW OF SYSTEMS: Twelve-point review of systems is essentially negative except what is mentioned in the HPI. PHYSICAL EXAMINATION: VITAL SIGNS: Temperature 36.3, pulse 46, respirations 16, blood pressure 168/64. HEART: Regular rate and rhythm. LUNGS: Diminished, but clear. ABDOMEN: Soft, positive bowel sounds in all 4 quadrants with no masses or tenderness noted. LABORATORY DATA: Hemoglobin on admission was 11.4, she is 10.5, hematocrit 32.6, white count is 7, platelets 203. Sodium 139, potassium 4.6, chloride 98, CO2 of 34, BUN is 44, creatinine 5.6, GFR is 8, glucose is 117. PT is 12, INR is 1.2. Total bilirubin 0.5, alkaline phosphatase 127, ALT 10, AST is 8. Chest x-ray negative. Abdominal x-ray negative as well. IMPRESSION: 1. Vomiting, resolved. 2. Gastroesophageal reflux disease worsening, Tums. 3. History of gastroparesis, not taking any Reglan. Last EGD was 2015. 4. Chronic anemia. 5. Anticoagulant therapy, warfarin secondary to atrial fibrillation. 6. End-stage renal disease, dialysis today. PLAN: 1. EGD tomorrow with Dr. Bagley. 2. Continue Protonix b.i.d. 3. Hold her aspirin tonight. 4. Further recommendations to be made after the procedure has been performed. Thank you for allowing us to participate in this patient's care. Please do not hesitate to call with any questions in regard to this consult. <ELECTRONICALLY SIGNED> By: Facundo Bryan DO 12/21/17 1659 1547 19Facundo Bryan DO /nt
[2018-01-08] MEDS ORDERED: PLAVIX 75 MG TA75 M1 PO (17:09)
== END 2017-12-19 20:50 | disposition home or self-care (01) | DRG 177 ==
LOC: M.ERS 16:13 → M.2W 17:54 → M.TBA-ER 17:54 → M.2W 19:28
PROVIDERS: Emergency Medicine; Family Medicine; Internal Medicine Nephrology; ADMIT Internal Medicine
PROC: 5A1D70Z Performance of Urinary Filtration, Intermittent, Less than 6 Hours Per Day (ICD-10-PCS; principal; 2017-12-14)
PROC: 0DB68ZX Excision of Stomach, Via Natural or Artificial Opening Endoscopic, Diagnostic (ICD-10-PCS; 2017-12-15)
PROC: 5A1D70Z Performance of Urinary Filtration, Intermittent, Less than 6 Hours Per Day (ICD-10-PCS; 2017-12-16)
PROC: 5A1D70Z Performance of Urinary Filtration, Intermittent, Less than 6 Hours Per Day (ICD-10-PCS; 2017-12-19)
DX: J69.0 Pneumonitis due to inhalation of food and vomit (principal); N18.6 End stage renal disease; I13.2 Hypertensive heart and chronic kidney disease with heart failure and with stage 5 chronic kidney disease, or end stage renal disease; I50.32 Chronic diastolic (congestive) heart failure; K22.10 Ulcer of esophagus without bleeding; I25.10 Atherosclerotic heart disease of native coronary artery without angina pectoris; E10.21 Type 1 diabetes mellitus with diabetic nephropathy; D64.9 Anemia, unspecified; K21.0 Gastro-esophageal reflux disease with esophagitis; F32.9 Major depressive disorder, single episode, unspecified; I50.84 End stage heart failure; I48.2 Chronic atrial fibrillation; E10.43 Type 1 diabetes mellitus with diabetic autonomic (poly)neuropathy; K31.84 Gastroparesis; I70.1 Atherosclerosis of renal artery; K44.9 Diaphragmatic hernia without obstruction or gangrene; K29.70 Gastritis, unspecified, without bleeding; I73.9 Peripheral vascular disease, unspecified; H54.40 Blindness, one eye, unspecified eye; E10.22 Type 1 diabetes mellitus with diabetic chronic kidney disease; Z89.512 Acquired absence of left leg below knee; Z79.01 Long term (current) use of anticoagulants; Z79.2 Long term (current) use of antibiotics; Z99.2 Dependence on renal dialysis; Z79.82 Long term (current) use of aspirin; Z79.4 Long term (current) use of insulin; Z90.49 Acquired absence of other specified parts of digestive tract; Z90.710 Acquired absence of both cervix and uterus; Z95.1 Presence of aortocoronary bypass graft; Z79.899 Other long term (current) drug therapy; Z82.49 Family history of ischemic heart disease and other diseases of the circulatory system; Z80.9 Family history of malignant neoplasm, unspecified

== ENCOUNTER → 2017-12-25 | Outpatient (CLI) | payer OTHER, MEDICAID ==
[~2017-12-25] MED LIST changes: +AMOX TR-K CLV1 EAC3 PO; +CATAPRESS3 TRANSDERM; +COZAAR 50 MG TA50 M1 PO; +DOXYCYCLINE 10100 MG PO; +IMDUR 30 MG TAB30 M1 PO; +SANTYL OINTMENT30 G1 TP; +SPIRONOLACTONE25 MG PO
== END ==
LOC: M.WC 00:52
DX: E11.622 Type 2 diabetes mellitus with other skin ulcer (principal); L97.811 Non-pressure chronic ulcer of other part of right lower leg limited to breakdown of skin; I70.238 Atherosclerosis of native arteries of right leg with ulceration of other part of lower leg; E11.621 Type 2 diabetes mellitus with foot ulcer; L97.411 Non-pressure chronic ulcer of right heel and midfoot limited to breakdown of skin; E11.36 Type 2 diabetes mellitus with diabetic cataract; E11.39 Type 2 diabetes mellitus with other diabetic ophthalmic complication; H40.9 Unspecified glaucoma; E11.51 Type 2 diabetes mellitus with diabetic peripheral angiopathy without gangrene; E11.22 Type 2 diabetes mellitus with diabetic chronic kidney disease; N18.6 End stage renal disease; I50.9 Heart failure, unspecified; I48.91 Unspecified atrial fibrillation; F32.9 Major depressive disorder, single episode, unspecified; Z99.2 Dependence on renal dialysis; Z90.710 Acquired absence of both cervix and uterus

== ENCOUNTER → 2018-01-01 | Outpatient (CLI) | payer OTHER, MEDICAID | LOC: M.WC 00:09 | DX: E11.621 Type 2 diabetes mellitus with foot ulcer (principal); L97.411 Non-pressure chronic ulcer of right heel and midfoot limited to breakdown of skin; E11.622 Type 2 diabetes mellitus with other skin ulcer; L97.811 Non-pressure chronic ulcer of other part of right lower leg limited to breakdown of skin; I70.201 Unspecified atherosclerosis of native arteries of extremities, right leg; I48.91 Unspecified atrial fibrillation; E11.51 Type 2 diabetes mellitus with diabetic peripheral angiopathy without gangrene; E11.22 Type 2 diabetes mellitus with diabetic chronic kidney disease; I13.2 Hypertensive heart and chronic kidney disease with heart failure and with stage 5 chronic kidney disease, or end stage renal disease; N18.6 End stage renal disease; I50.9 Heart failure, unspecified; F32.9 Major depressive disorder, single episode, unspecified; E11.36 Type 2 diabetes mellitus with diabetic cataract; Z89.512 Acquired absence of left leg below knee; Z90.710 Acquired absence of both cervix and uterus; Z99.2 Dependence on renal dialysis ==

== ENCOUNTER → 2018-01-08 | Outpatient (CLI) | payer OTHER, MEDICAID ==
[~2018-01-08] VITALS: Ht 162.6 cm; Wt 64.4 kg
[2018-01-08 13:35] VITALS: BP 229/77
[2018-01-08 13:41] LABS: HEMATOCRIT 34.4 % (37.0-47.0); HEMOGLOBIN 11.2 gm/dL (12.0-15.0); MCH 31.1 pg (26.0-34.0); MCHC 32.7 g/dL (28.0-37.0); MCV 95.1 fL (80.0-100.0); MPV 9.8 fl. (7.2-11.1); RBC 3.62 mil/uL (4.20-5.00); RDW-CV 16.4 % (10.5-14.5); WBC 9.8 thou/uL (4.0-11.0)
[2018-01-08 13:52] LABS: CREATININE 3.5 mg/dL (0.6-1.3); POTASSIUM 3.3 mmol/L (3.5-5.1)
[2018-01-08 13:56] LABS: ALBUMIN 3.1 g/dL (3.4-5.0); TOTAL BILIRUBIN 0.4 mg/dL (<0.1-1.0); TOTAL PROTEIN 7.3 g/dL (6.4-8.2)
[2018-01-08 14:17] LABS: APTT 26.7 Seconds (25.0-31.3); INR 1.1; PROTIME 10.4 Seconds (9.20-11.50)
[2018-01-08 16:09] VITALS: BP 190/88
[2018-01-08 16:32] VITALS: BP 199/86
[2018-01-08 16:47] VITALS: BP 199/86
[2018-01-08 17:00] VITALS: BP 199/86
--- NOTE | 2018-01-24 08:35 | OP ---
[facility] [address] [place] [address] OPERATIVE REPORT Name: JACIELERIN GUNTER Room: [facility].#: [id number] Admission: 01/08/18 Attend Phys: Kyle Montes Discharge: Date of : 59 Report #: [id number] THIS REPORT FOR: //name// CC: Nacho Quintanilla DATE OF SERVICE: 01/08/2018 PREOPERATIVE DIAGNOSES: Peripheral vascular disease, rest pain, right lower extremity. POSTOPERATIVE DIAGNOSES: Peripheral vascular disease, rest pain, right lower extremity. SURGEON: Nacho Mccloud DO. ROTARY ENGINE ASSEMBLER: None. PROCEDURE: 1. Ultrasound-guided access, left common femoral artery. 2. Aortogram. 3. Diagnostic bilateral renal angiogram. 4. Right lower extremity angiogram, catheter position third order. 5. Right superficial femoral artery angioplasty and stent with Bard Solo 6 x 200 stents x 2 and Bard Sparta 6 x 200 angioplasty balloon. 6. Limited angiogram, left common femoral artery and left lower extremity. 7. Angio-Seal closure, left common femoral artery. ANESTHESIA: Moderate sedation. ESTIMATED BLOOD LOSS: Minimal. SPECIMEN: None. COMPLICATIONS: None. CONDITION: Stable. DISPOSITION: Home. INDICATIONS FOR THE PROCEDURE AND CONSENT: The patient is a 62-year-old female who presented with rest pain. She has history of prior peripheral vascular disease with intervention. She has history of hypertension and end-stage renal disease with a fistula. The patient has had difficult to control hypertension and a request for renal angiogram was also requested by hospitalist. I did discuss this with her first line production supervisor who reported that given her end-stage renal [facility] [address] [facility] [address] OPERATIVE REPORT Name: ERIN GRISSOM Room: [facility].#: [id number] Admission: 01/08/18 Attend Phys: Kyle Montes Discharge: Date of : 59 Report #: [id number] disease and small kidneys that intervention would not likely be beneficial. I agreed with this. We did agree that performing a diagnostic angiogram for future management may be of benefit. Risks and benefits of right lower extremity angiogram for rest pain as well as for renal arteriogram was all discussed with the patient. The patient wished to proceed, was consented and scheduled. PROCEDURE IN DETAIL: After timeout was performed, the patient was placed in supine position with sterile prep and drape of the bilateral groins, bilateral thighs and abdomen. Ultrasound was utilized to identify the left common femoral artery and Seldinger technique used to place 6-[place] sheath without difficulty. Glidewire Advantage and UF catheter advanced in the infrarenal aorta and aortogram performed at the level of the renal arteries. The aortogram demonstrated widely patent aorta. The right renal artery appeared widely patent with only minimal narrowing, perhaps 20-30%, throughout its length of the initial origin to its branching point. The left renal artery was not well visualized due to its takeoff point being not 90 degrees to the aorta. Angled views were then performed. This demonstrated that the renal artery was somewhat tortuous at its origin with perhaps 50% narrowing, but did not appear to be significant. The flow into the renal artery appeared to be brisk with a normal branching pattern. I then brought the catheter down to the level of the aortic bifurcation and aortogram was performed. This demonstrated the iliac arteries to be widely patent without flow limitation or stenosis. Left external iliac artery had some mild, perhaps 50%, narrowing, but did not appear to be flow limiting. I then advanced the Glidewire Advantage and UF catheter to the right external iliac artery and right lower extremity angiogram was performed. The right lower extremity angiogram demonstrated the common femoral artery to be widely patent without flow limitation, a large profunda. The origin of the profunda had severe stenosis of in fact 60%. The right superficial artery was completely occluded through a previously placed SFA stent. It did reconstitute in the distal two-thirds of the SFA above the termination point of the previous stent. It then appeared to more briskly and more concentrated reconstitution below the area of the stent as well. There was 3-vessel runoff to the ankle with anterior tibial, posterior tibial and peroneal vessels patent. There was some narrowing of the tibioperoneal trunk that appeared flow limiting, but not severe. At this point, I systemically heparinized the patient with 6000 units of heparin with intention to treat her rest pain by repeat angioplasty and stent of her right SFA. I obtained a 6-[place] up and over sheath and advanced it into the distal external iliac artery without difficulty. I then obtained a Seeker catheter and with the Glidewire Advantage and Seeker catheter angled and [address] [address] OPERATIVE REPORT Name: ERIN GRISSOM Room: KAMRAN Reed#: [id number] Admission: 01/08/18 Attend Phys: Kyle Montes Discharge: Date of : 59 Report #: [id number] magnified views I was able to negotiate into the origin of the superficial femoral artery through the entire occluded SFA stent without difficulty and advanced my Seeker into the popliteal artery. I then removed the wire and performed angiography, which demonstrated preserved 3-vessel runoff below the knee without embolization. I then removed the Seeker catheter after replacing the wire and obtained the 6 x 200 Solo LifeStents and deployed them under fluoroscopic guidance from approximately 3 cm beyond the previous termination point of the stent up to the common femoral artery origin. I then post-dilated them with a 6 mm x 200 Bard angioplasty balloon. Repeat angiography demonstrated excellent radiographic result without flow limitation or stenosis. I was pleased with the result. I then retracted the sheath in the left external iliac artery and performed a limited angiogram of the left lower extremity. She had previous stenting on the left side, which the left SFA stent appeared patent. There was some mild non-flow limiting stenoses. They were tandem in nature. There did not appear to be any severe stenosis that would lead to occlusion in the near future. The access point appeared to be within the left common femoral artery and appropriate for Angio-Seal closure. A 6-[place] Angio-Seal was selected and deployed in standard fashion. The patient tolerated the procedure well. All lap, needle and instrument counts were correct. Pressure was held for additional hemostasis and the patient was transferred to recovery room in stable condition. <ELECTRONICALLY SIGNED> By: Nacho Mccloud DO 01/24/18 0835 1622 [id number] Mccloud DO /nt
== END | disposition home or self-care (01) ==
LOC: M.INT 12:43
PROVIDERS: Surgery
DX: I70.221 Atherosclerosis of native arteries of extremities with rest pain, right leg (principal); I13.2 Hypertensive heart and chronic kidney disease with heart failure and with stage 5 chronic kidney disease, or end stage renal disease; N18.6 End stage renal disease; I50.32 Chronic diastolic (congestive) heart failure; I25.10 Atherosclerotic heart disease of native coronary artery without angina pectoris; E10.22 Type 1 diabetes mellitus with diabetic chronic kidney disease; I48.91 Unspecified atrial fibrillation; F32.89 Other specified depressive episodes; Z90.710 Acquired absence of both cervix and uterus; Z95.1 Presence of aortocoronary bypass graft; Z99.2 Dependence on renal dialysis; Z79.01 Long term (current) use of anticoagulants; Z79.899 Other long term (current) drug therapy; Z98.890 Other specified postprocedural states; Z79.82 Long term (current) use of aspirin

== ENCOUNTER → 2018-01-08 | Outpatient (CLI) | payer OTHER, MEDICAID | LOC: M.WC 00:54 | DX: L97.511 Non-pressure chronic ulcer of other part of right foot limited to breakdown of skin (principal); E11.621 Type 2 diabetes mellitus with foot ulcer; E11.622 Type 2 diabetes mellitus with other skin ulcer; L97.811 Non-pressure chronic ulcer of other part of right lower leg limited to breakdown of skin; E11.36 Type 2 diabetes mellitus with diabetic cataract; E11.39 Type 2 diabetes mellitus with other diabetic ophthalmic complication; H40.89 Other specified glaucoma; E11.51 Type 2 diabetes mellitus with diabetic peripheral angiopathy without gangrene; E11.22 Type 2 diabetes mellitus with diabetic chronic kidney disease; I13.2 Hypertensive heart and chronic kidney disease with heart failure and with stage 5 chronic kidney disease, or end stage renal disease; N18.6 End stage renal disease; I50.9 Heart failure, unspecified; I48.91 Unspecified atrial fibrillation; F32.9 Major depressive disorder, single episode, unspecified; Z99.2 Dependence on renal dialysis; Z90.710 Acquired absence of both cervix and uterus ==

== ENCOUNTER 2018-01-16 06:57 | Inpatient (IN) | payer OTHER, MEDICAID ==
[~2018-01-16] VITALS: Ht 162.6 cm; Wt 64.9 kg
[~2018-01-16 06:57] MED LIST changes: -AMOX TR-K CLV1 EAC3 PO; -COZAAR 50 MG TA50 M1 PO; -DOXYCYCLINE 10100 MG PO; -IMDUR 30 MG TAB30 M1 PO; -SANTYL OINTMENT30 G1 TP; -SPIRONOLACTONE25 MG PO
[2018-01-16 06:59] VITALS: BP 220/72
[2018-01-16] MEDS ORDERED: AMLODIPINE BESY10 MG PO (07:09)
[2018-01-16] MEDS ORDERED: HUMALOG100 UNIT/1 SUBQ (07:09)
[2018-01-16] MEDS ORDERED: LANTUS100 UNIT/M SUBQ (07:09)
[2018-01-16] MEDS ORDERED: REGLAN 10 MG TA10 MG PO (07:09)
[2018-01-16] MEDS ORDERED: SANTYL OINTMENT30 G1 TP (07:10)
[2018-01-16] MEDS ORDERED: TOPROL XL100 MG PO (07:10)
[2018-01-16 07:32] LABS: ABSOLUTE BASOPHILS 0.1 thou/uL (0.0-0.2); ABSOLUTE EOSINOPHILS 0.3 thou/uL (0.0-0.7); ABSOLUTE LYMPHOCYTES 1.3 thou/uL (0.8-5.3); ABSOLUTE MONOCYTES 0.7 thou/uL (0.0-1.2); ABSOLUTE NEUTROPHILS 6.3 thou/uL (1.6-8.1); BASOPHILS 1.1 %; EOSINOPHILS 3.3 %; HEMATOCRIT 31.9 % (37.0-47.0); HEMOGLOBIN 10.5 gm/dL (12.0-15.0); LYMPHOCYTES 14.6 %; MCH 31.3 pg (26.0-34.0); MCHC 32.8 g/dL (28.0-37.0); MCV 95.3 fL (80.0-100.0); NUCLEATED RBCS 0 /100WBC; PLATELET COUNT* 337 thou/uL (150-400); RBC 3.34 mil/uL (4.20-5.00); RDW-CV 16.7 % (10.5-14.5); WBC 8.7 thou/uL (4.0-11.0)
[2018-01-16 07:43] LABS: CALCIUM 8.3 mg/dL (8.5-10.1); CREATININE 4.5 mg/dL (0.6-1.3); POTASSIUM 3.8 mmol/L (3.5-5.1)
[2018-01-16 07:47] LABS: ALBUMIN 2.8 g/dL (3.4-5.0); APTT 59.9 Seconds (25.0-31.3); INR 1.1; PROTIME 11.1 Seconds (9.20-11.50); TOTAL BILIRUBIN 0.6 mg/dL (<0.1-1.0); TOTAL PROTEIN 6.9 g/dL (6.4-8.2)
--- NOTE | 2018-01-16 09:00 | NUR ---
BP REMAINS HIGH. DR MCKEON AWARE
[2018-01-16 09:25] VITALS: BP 217/79
[2018-01-16 09:45] VITALS: BP 217/79
--- NOTE | 2018-01-16 11:34 | NUR ---
PATIENT RECIEVED THIS AM AT 0940 FROM THE ER. PATIENT IS ALERT AND ORIENTED X 4. SHE DENIES PAIN. HER BLOOD PRESSURE CONTINUES ELEVATED BUT IS DOWN FOR THE READINGS IN THE ER. PATIENT PLACED ON THE TELE MONITOR. ORIENTED TO THE ROOM. NEPHROLOGY IN TO SEE PATIENT AND DIALYSIS ORDERED. PATIENT TAKEN TO DIALYSIS PER BED.
[2018-01-16 16:00] VITALS: BP 199/59
--- NOTE | 2018-01-16 17:54 | EKG ---
[place] [address] ELECTROCARDIOGRAM REPORT Name: ERIN GRISSOM Room: [address] IN .R.#: [id number] Admission: 01/16/18 Attend Phys: Kyle Abbasi Discharge: Date of : 59 Report #: [id number] THIS REPORT FOR: //name// [facility] ED Test Date: 2018-01-16 Test Time: 07:01:54 Pat Name: ERIN GRISSOM Department: Room: Gender: F Strategic Partner Development Manager: : 1955 Requested By: Lorne Moyer Order Number: [id number] MD: James Cerda Measurements Intervals [place] Rate: 52 P: 24 NJ: 210 QRS: 47 QRSD: 100 T: 162 QT: 578 QTc: 538 Interpretive Statements Sinus rhythm Prolonged [place] interval Anterior infarct, old Nonspecific T abnormalities, lateral leads Prolonged QT interval Compared to ECG 12/16/2017 13:57:15 T-wave abnormality now present Prolonged QT interval now present Left posterior fascicular block no longer present Myocardial infarct finding still present Electronically Signed On 01-16-2018 17:53:52 CDT by James Cerda [email or web address] <ELECTRONICALLY SIGNED> By: James Cerda MD, FACC 01/16/18 1753 0 07 James Cerda MD, FACC /EPI
[2018-01-16 20:00] VITALS: BP 225/80
[2018-01-17] VITALS (8 sets, daily range): BP systolic 108–228; BP diastolic 43–83
--- NOTE | 2018-01-17 05:33 | NUR ---
ASSUMED PT CARE AT 1930. NURSING ASSESSMENT COMPLETED AT START OF SHIFT. PT VOICED NO CONCERS, RETAIL MANAGER IN PLACE, PT TRACING SINUS RHYTHM/SINUS BRADICARDIA THIS SHIFT. PT BLOOD PRESSURE ELEVATED AT START OF SHIFT. SCHEDULED BLOOD PRESSURE MEDICATIONS ADMINISTERED, PRN CLONIDINE ADMINSITERED WITH IMPROVED RESULTS AT 0157. AT 0400, PT BLOOD PRESSURE ELEVATED AGAIN. PRN CLONIDINE ADMINISTERED, SEE EMAR FOR DOCUMENTATION. HOURLY ROUNDING COMPLETED, HIGH FALL PRECAUTIONS IN PLACE. Q2H REPOSITIONING COMPLETED.
--- NOTE | 2018-01-17 11:53 | NUR ---
Pt known to this CM from previous hospital stays. Pt is A&O. Resides at home with her son who assists with ADLS and iADLS. Pt is current at [facility] [employer] . WC bound. Hx of [facility]. Hx of skilled at [facility]. [place]al [place] Following.
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
[2018-01-17 15:33] LABS: URINE BILIRUBIN NEGATIVE (Negative); URINE BLOOD 1+ (Negative); URINE CLARITY CLOUDY; URINE COLOR YELLOW; URINE GLUCOSE-RANDOM TRACE (Negative); URINE KETONES NEGATIVE (Negative); URINE LEUKOCYTES-REFLEX 1+ (Negative); URINE NITRITE-REFLEX NEGATIVE (Negative); URINE PROTEIN 3+ (Negative); URINE UROBILINOGEN 0.2 E.U./dl (0.2-1.0)
[2018-01-17 16:14] LABS: BACTERIA-REFLEX >30 Many /HPF (None Seen); URINE WBC-REFLEX >25 Many /HPF (0-5)
[2018-01-17 16:15] LABS: CASTS None Seen /LPF (None Seen); MUCUS None Seen strn/LPF (None Seen); SQUAMOUS NONE SEEN /LPF (0-3); URINE RBC 0-2 Rare /HPF (0-2)
[2018-01-17 16:16] LABS: WBC CLUMPS Few (None Seen)
[2018-01-17 16:19] LABS: AMORPHOUS URATES Few /LPF (None Seen)
--- NOTE | 2018-01-17 18:50 | NUR ---
ASSUMED CARE OF PT AT 0730. PT CONTINUNES TO BE A&O BUT FORGETFUL AT TIMES. PT HAS HAD NO C/O PAIN OR DISTRESS TODAY. SHE HAS HAD A GOOD APPETITE AND HAS ATE GREATER THAN 90% OF ALL MEALS. PT WAS SEEN BY THE WOUND NURSE TODAY AND DRESSING TO RIGHT CALF AND FOOT CHANGED WELL PICTURES TAKEN. PT VOIDING PER THE BEDPAN SHE IS BEDBOUND. PT BLOOD PRESSURE HAS BEEN HIGH A COUPLE TIMES TODAY, UPON RECHECK AFTER ADMINISTRATION OF PRN AND/OR SCHEDULED MEDICATIONS BP WAS BACK TO A NORMAL RANGE. NURSING WILL CONTINUE TO MONITOR.
[2018-01-18] VITALS: BP 131/47
--- NOTE | 2018-01-18 03:41 | NUR ---
ASSUMED PT CARE AT 1930, NURSING ASSESSMENT COMPLETED AT START OF SHIFT. PT VOICED NO CONCERNS. PT TRACING SINUS RHYTHM ON NEWS BROADCASTER. HOURLY ROUNDING COMPLETED, CALL LIGHT WITHIN REACH. PT PROGRESSING TOWARDS GOALS.
[2018-01-18 04:00] VITALS: BP 123/42
[2018-01-18 08:00] VITALS: BP 174/37
[2018-01-18] MEDS ORDERED: SPIRONOLACTONE25 MG PO (09:29)
[2018-01-18] MEDS ORDERED: HYDRALAZINE 2525 MG PO (09:29)
[2018-01-18 10:21] VITALS: BP 174/37
--- NOTE | 2018-01-18 10:46 | NUR ---
ASSUMED PT CARE AT 0730, FULL ASSESMENT DONE CHARTED. PT A/O X4, PULSE LORENA, BP SLIGHLY ELEVATED AT 174/37, ALL OTHER VSS. PT DENIES PAIN, DIALYSIS SCHEDULED FOR TODAY. PT HOPING TO DISCHARGE AFTER DIALYSIS. PT TUNED Q2H, FALL PRECAUTIONS IN PLACE. WILL CONTINUE WITH PLAN OF CARE.
[2018-01-18 12:37] VITALS: BP 182/57
--- NOTE | 2018-01-18 14:43 | NUR ---
Pt discharging to home today, faxed flowsheets and H&P to [facility]
[2018-01-18] MEDS ORDERED: TOPROL XL100 MG PO (18:26)
--- NOTE | 2018-01-18 19:37 | NUR ---
PT FINISHED DIALYSIS THIS EVENING,WOUNDS REDRESSED AND DISCHARGE PICTURES TAKEN. DISCHARGE ORDERS REVIEWED WITH THE PT AND SON. PT LEFT WITH SON AT APPROX 1930
--- NOTE | 2018-01-25 08:40 | CON ---
[address] [address] CONSULTATION Name: JACIELERIN LILIAM Room: [address] IN M.R.#: [id number] Admission: 01/16/18 Attend Phys: Kyle Abbasi Discharge: 01/18/18 Date of : 59 Report #: [id number] THIS REPORT FOR: //name// CC: Marla Garcia DATE OF SERVICE: 01/16/2018 CONSULTING PHYSICIAN: Dr. Moyer. REASON FOR NEPHROLOGY CONSULTATION: End-stage renal disease, for maintenance hemodialysis. REASON FOR ADMISSION: High blood pressure. HISTORY OF PRESENT ILLNESS: This is a 62-year-old very pleasant female, with past medical history of uncontrolled hypertension, history of peripheral vascular disease, ESRD, on hemodialysis every Monday, and Monday at [facility], who was sent from her dialysis facility after 30 minutes of dialysis because of elevated blood pressure. The patient's blood pressure was running 240s systolically. The patient has a history of uncontrolled high blood pressure. In fact, there was suspicion for renal artery stenosis. She had a renal artery angiogram when she was getting further evaluated for her iliac arteries on 01/08/2018. She ended up having a right superficial femoral artery stent placed after angioplasty, but the renal arteries were not significantly obstructed and also, she has bilateral renal atrophy, so they were left as such. I am not sure what medications she takes. I do note that her blood pressure medications were recently adjusted. She lives with her son and son's girlfriend who is a nurse who takes care of all her medications. Her electrolytes are normal today, and she is not short of breath and her chest x-ray looks good. She has been on dialysis for the last 3 years. She has a right tunneled dialysis catheter in her IJ. She has a right arm AV fistula with a good bruit and good thrill, but she states to me that is still maturing. She has had other AV fistulas in her left arm before, which have not worked. REVIEW OF SYSTEMS: The patient does not have any headache or shortness of breath, and other review of systems were done and they were negative. ALLERGIES: No known drug allergies. PAST MEDICAL AND SURGICAL HISTORY: Includes history of hysterectomy, recent right SFA stent, coronary artery disease, CABG x 4, then PVD stents, blindness in the right eye, 30% vision in left eye, diabetes, hypertension, ESRD, on hemodialysis every Monday, and Monday at [facility] under Dr. Wyatt, left BKA in 2016, hip fracture, depression, [place] [address] CONSULTATION Name: ERIN GRISSOM Room: [address] IN M.R.#: [id number] Admission: 01/16/18 Attend Phys: Kyle Abbasi Discharge: 01/18/18 Date of : 59 Report #: [id number] diastolic congestive heart failure, atrial fibrillation on Coumadin, gastroparesis. HOME MEDICATIONS: According to the computer and her health record, clonidine 0.3 mg transdermal patch, sucralfate, pantoprazole, aspirin, vitamin B12, insulin glargine, amiodarone, clonidine p.r.n., amlodipine 10 mg once a day, lispro, Reglan, metoprolol 200 mg at bedtime, collagenase, allopurinol, calcium acetate 1334 mg p.o. t.i.d., trazodone, glucagon, citalopram, clopidogrel 75 mg daily. FAMILY HISTORY: Noncontributory. SOCIAL HISTORY: She does not smoke or take alcohol or any other recreational drugs. Lives at home with her son. PHYSICAL EXAMINATION: VITAL SIGNS: Blood pressure is 217/79, pulse ox is 95% on room air, respiratory rate is 18 and pulse rate is 55 and temperature is 36.7. GENERAL: She is awake, alert and oriented x 3. HEAD, EYES, EARS, NOSE AND THROAT: Mucous membranes are moist. NECK: There is no JVD. CHEST: Clear to auscultation bilaterally. No crackles or wheezing. CARDIOVASCULAR: S1, S2 normal. No murmurs heard. ABDOMEN: Soft, nondistended, nontender. Bowel sounds are present. EXTREMITIES: There is no lower extremity edema. DIALYSIS ACCESS: She has a right arm AV fistula with good bruit and good thrill. She has a right IJ Perm-A-Cath. LABORATORY DATA: From today, hemoglobin is 10.5 and a potassium of 3.8 and other labs are reviewed. IMAGING: Chest x-ray was reviewed. ASSESSMENT: 1. End-stage renal disease, on hemodialysis every Monday, and Monday. End-stage renal disease because of diabetes and hypertension. 2. Uncontrolled hypertension. 3. Anemia of chronic kidney disease. Hemoglobin is at goal 10.5. 4. Secondary hyperparathyroidism and hyperphosphatemia. Continue her home dose of phosphorus binders. She is on PhosLo. PLAN: The patient apparently had a renal artery angiogram on 01/08/2018, and there was no significant obstruction at the level of renal arteries, so no intervention was done for renal arteries. The patient still has renovascular disease, but she just needs to be treated with medical management. Since she [facility] [address] [place] [address] CONSULTATION Name: ERIN GRISSOM Room: [address] IN M.R.#: [id number] Admission: 01/16/18 Attend Phys: Kyle Abbasi Discharge: 01/18/18 Date of : 59 Report #: [id number] did not complete dialysis today, she will be dialyzed today and we will remove as much fluid as we can to see if that helps with her blood pressure. Also, I have added Aldactone in addition to amlodipine and hydralazine to her blood pressure medication regimen. It seems like she was already on amlodipine. I have started her on Aldactone 50 mg b.i.d. Other medications can be continued by primary team. Thank you for this consultation, and I have discussed the plan with the patient as well as the patient's nurse. We will continue to follow along with you. <ELECTRONICALLY SIGNED> By: Basilia Uriostegui MD 01/25/18 0840 1030 1212Arebeca Uriostegui MD /nt
== END 2018-01-18 19:37 | disposition home or self-care (01) | DRG 291 ==
LOC: M.ERS 06:57 → M.2W 08:59 → M.TBA-ER 08:59 → M.2W 09:32
PROVIDERS: Family Medicine; ADMIT Internal Medicine
PROC: 5A1D70Z Performance of Urinary Filtration, Intermittent, Less than 6 Hours Per Day (ICD-10-PCS; principal; 2018-01-18)
DX: I13.2 Hypertensive heart and chronic kidney disease with heart failure and with stage 5 chronic kidney disease, or end stage renal disease (principal); N18.6 End stage renal disease; I50.32 Chronic diastolic (congestive) heart failure; N25.81 Secondary hyperparathyroidism of renal origin; I16.0 Hypertensive urgency; I25.10 Atherosclerotic heart disease of native coronary artery without angina pectoris; H54.61 Unqualified visual loss, right eye, normal vision left eye; E11.51 Type 2 diabetes mellitus with diabetic peripheral angiopathy without gangrene; E11.22 Type 2 diabetes mellitus with diabetic chronic kidney disease; F32.9 Major depressive disorder, single episode, unspecified; I48.91 Unspecified atrial fibrillation; D63.8 Anemia in other chronic diseases classified elsewhere; E83.39 Other disorders of phosphorus metabolism; Z82.49 Family history of ischemic heart disease and other diseases of the circulatory system; Z99.2 Dependence on renal dialysis; Z90.710 Acquired absence of both cervix and uterus; Z95.1 Presence of aortocoronary bypass graft; Z89.512 Acquired absence of left leg below knee; Z79.01 Long term (current) use of anticoagulants; Z87.81 Personal history of (healed) traumatic fracture; Z79.82 Long term (current) use of aspirin; Z79.899 Other long term (current) drug therapy

== ENCOUNTER → 2018-01-29 | Outpatient (CLI) | payer OTHER, MEDICAID ==
[~2018-01-29] MED LIST changes: +AMOX TR-K CLV1 EAC3 PO; +COZAAR 50 MG TA50 M1 PO; +DOXYCYCLINE 10100 MG PO; +IMDUR 30 MG TAB30 M1 PO; +SANTYL OINTMENT30 G1 TP; +SPIRONOLACTONE25 MG PO
== END ==
LOC: M.WC 01:15
DX: E11.621 Type 2 diabetes mellitus with foot ulcer (principal); L97.411 Non-pressure chronic ulcer of right heel and midfoot limited to breakdown of skin; E11.622 Type 2 diabetes mellitus with other skin ulcer; I70.238 Atherosclerosis of native arteries of right leg with ulceration of other part of lower leg; L97.811 Non-pressure chronic ulcer of other part of right lower leg limited to breakdown of skin; E11.22 Type 2 diabetes mellitus with diabetic chronic kidney disease; N18.6 End stage renal disease; E11.36 Type 2 diabetes mellitus with diabetic cataract; E11.39 Type 2 diabetes mellitus with other diabetic ophthalmic complication; H40.9 Unspecified glaucoma; H42 Glaucoma in diseases classified elsewhere; E11.51 Type 2 diabetes mellitus with diabetic peripheral angiopathy without gangrene; I48.91 Unspecified atrial fibrillation; I50.9 Heart failure, unspecified; F32.9 Major depressive disorder, single episode, unspecified; Z99.2 Dependence on renal dialysis; Z90.710 Acquired absence of both cervix and uterus

== ENCOUNTER → 2018-02-05 | Outpatient (CLI) | payer OTHER, MEDICAID | LOC: M.WC 00:53 | DX: E11.622 Type 2 diabetes mellitus with other skin ulcer (principal); I70.238 Atherosclerosis of native arteries of right leg with ulceration of other part of lower leg; L97.811 Non-pressure chronic ulcer of other part of right lower leg limited to breakdown of skin; E11.621 Type 2 diabetes mellitus with foot ulcer; L97.511 Non-pressure chronic ulcer of other part of right foot limited to breakdown of skin; L97.411 Non-pressure chronic ulcer of right heel and midfoot limited to breakdown of skin; E11.36 Type 2 diabetes mellitus with diabetic cataract; E11.39 Type 2 diabetes mellitus with other diabetic ophthalmic complication; H40.9 Unspecified glaucoma; H42 Glaucoma in diseases classified elsewhere; E11.51 Type 2 diabetes mellitus with diabetic peripheral angiopathy without gangrene; F32.9 Major depressive disorder, single episode, unspecified; I48.91 Unspecified atrial fibrillation; I50.9 Heart failure, unspecified; Z99.2 Dependence on renal dialysis; Z90.710 Acquired absence of both cervix and uterus ==

== ENCOUNTER → 2018-02-19 | Outpatient (CLI) | payer OTHER, MEDICAID | LOC: M.WC 06:18 | DX: E11.621 Type 2 diabetes mellitus with foot ulcer (principal); L97.511 Non-pressure chronic ulcer of other part of right foot limited to breakdown of skin; L97.411 Non-pressure chronic ulcer of right heel and midfoot limited to breakdown of skin; E11.36 Type 2 diabetes mellitus with diabetic cataract; E11.39 Type 2 diabetes mellitus with other diabetic ophthalmic complication; H40.9 Unspecified glaucoma; H42 Glaucoma in diseases classified elsewhere; E11.51 Type 2 diabetes mellitus with diabetic peripheral angiopathy without gangrene; E11.22 Type 2 diabetes mellitus with diabetic chronic kidney disease; N18.6 End stage renal disease; I50.9 Heart failure, unspecified; I48.91 Unspecified atrial fibrillation; F32.9 Major depressive disorder, single episode, unspecified; Z99.2 Dependence on renal dialysis ==

== ENCOUNTER 2018-03-19 02:28 | Observation (INO) | payer OTHER, MEDICAID ==
[~2018-03-19] VITALS: Ht 162.6 cm; Wt 60.8 kg
[~2018-03-19 02:28] MED LIST changes: -AMOX TR-K CLV1 EAC3 PO; -COZAAR 50 MG TA50 M1 PO; -DOXYCYCLINE 10100 MG PO; -IMDUR 30 MG TAB30 M1 PO
[2018-03-19 03:01] LABS: ABSOLUTE BASOPHILS 0.1 thou/uL (0.0-0.2); ABSOLUTE EOSINOPHILS 0.2 thou/uL (0.0-0.7); ABSOLUTE LYMPHOCYTES 2.3 thou/uL (0.8-5.3); ABSOLUTE MONOCYTES 0.6 thou/uL (0.0-1.2); ABSOLUTE NEUTROPHILS 6.3 thou/uL (1.6-8.1); BASOPHILS 0.9 %; EOSINOPHILS 2.4 %; HEMATOCRIT 37.9 % (37.0-47.0); HEMOGLOBIN 12.2 gm/dL (12.0-15.0); LYMPHOCYTES 24.2 %; MCH 31.5 pg (26.0-34.0); MCHC 32.3 g/dL (28.0-37.0); MCV 97.6 fL (80.0-100.0); MONOCYTES 5.9 %; NUCLEATED RBCS 0 /100WBC; PLATELET COUNT* 173 thou/uL (150-400); POLYS 66.6 %; RBC 3.89 mil/uL (4.20-5.00); RDW-CV 14.1 % (10.5-14.5); WBC 9.5 thou/uL (4.0-11.0)
[2018-03-19 03:10] LABS: ANION GAP 10 mmol/L (7-16); BUN 33 mg/dL (7-18); CALCIUM 8.1 mg/dL (8.5-10.1); CHLORIDE 103 mmol/L (98-107); CO2 26 mmol/L (21-32); CREATININE 4.5 mg/dL (0.6-1.3); GLUCOSE 123 mg/dL (70-99); SODIUM 139 mmol/L (136-145)
[2018-03-19 03:21] LABS: ALBUMIN 3.2 g/dL (3.4-5.0); ALKALINE PHOSPHATASE 109 U/L (46-116); NT-PRO BRAIN NAT PEPTIDE > 35000 pg/mL (<300); SGOT 9 U/L (15-37); SGPT 8 U/L (30-65); TOTAL BILIRUBIN 0.5 mg/dL (<0.1-1.0); TOTAL PROTEIN 6.4 g/dL (6.4-8.2); TROPONIN-I LEVEL 0.08 ng/mL (<0.06)
--- NOTE | 2018-03-19 03:27 | NUR ---
DR MORENO HAD ORDERD CLONIDINE PO FOR PATIENT. FAMILY STATES DR TOLD HER NOT TO TAKE AND ADDITIONAL PO CLONIDINE WHILE SHE HAS A CLONIDINE PATCH ON. FAMILY REPPORTS CLONIDINE PATCH IS TO BE REPLACED TODAY( MONDAY) DR MORENO NOTIFIED OF THIS AND STATES TO REMOVE PATCH, GIVE THE PO CLNIDINE THEN RESTART THE PATCH TODAY.
--- NOTE | 2018-03-19 04:56 | NUR ---
PATIENT PLACED IN HOSPITAL BED IN ED TO AWAIT A ROOM.
[2018-03-19 06:45] VITALS: BP 207/87
--- NOTE | 2018-03-19 10:02 | NUR ---
REPORT GIVEN TO KERLINE ARGUETA AND TAKEN TO RM 200 WITH ALL PERSONAL POSSESSIONS
[2018-03-19 10:52] VITALS: BP 198/80
--- NOTE | 2018-03-19 11:50 | NUR ---
ADMSSION AND ASSESSMENT COMPLETED REFER TO COMPUTER CHARTING. 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 BED IN LOW AND LOCKED POSITION. PATIENT TRANSFERED TO DIALYSIS ONCE ON THIS UNIT. PATIENT REPORTING NO PAIN, NAUSEA OR SHORTNESS OF AIR. IV SALINE LOCKED. ON 2 LITERS VIA NASAL CANNULA. ASSESSMENT COMPLETED IN DIALYSIS. DIALYSIS PORT TO RIGHT UPPER CHEST. WILL CONTINUE TO MONITOR.
--- NOTE | 2018-03-19 13:09 | EKG ---
[place] [address] ELECTROCARDIOGRAM REPORT Name: JACIELERIN LILIAM Room: [address] ADM IN .R.#: [id number] Admission: 03/19/18 Attend Phys: Kyle Abbasi Discharge: Date of : 59 Report #: [id number] THIS REPORT FOR: //name// [facility] ED Test Date: 2018-03-19 Test Time: 02:42:38 Pat Name: ERIN GRISSOM Department: Room: [facility] Gender: F Protection Analyst: 99 : 1955 Requested By: Shawn Leonardo Order Number: [id number] MD: Trevor Beck Measurements Intervals [place] Rate: 71 P: 23 NH: 266 QRS: 85 QRSD: 101 T: -59 QT: 516 QTc: 561 Interpretive Statements Sinus rhythm Prolonged NH interval Anterior infarct, old Prolonged QT interval Compared to ECG 01/16/2018 07:01:54 Myocardial infarct finding still present Electronically Signed On 03-19-2018 13:09:06 CDT by Trevor Beck [email or web address] <ELECTRONICALLY SIGNED> By: Trevor Beck MD, [facility] 03/19/18 1309 [id number] [id number] Trevor Beck MD, [facility] /EPI
[2018-03-19 16:09] VITALS: BP 187/68
--- NOTE | 2018-03-19 18:47 | NUR ---
PATINET RESTING IN BED. DIALYSIS PERFORMED TODAY. ALSO SCHEDULED FOR DIALYSIS MONDAY. VITAL SIGNS STABLE BUT PATIENT DOES REMAIN HYPERTENSIVE. HOURLY ROUNDING COMPLETED FOR PATINET SAFETY.
[2018-03-19 20:04] VITALS: BP 163/58
[2018-03-20] VITALS: BP 170/61
--- NOTE | 2018-03-20 01:45 | NUR ---
RECEIVED REPORT AND ASSUMED CARE AT 1900. VSS. CARDAIC MONITORING IN PLACE. PT DENIES ANY COMPLAINTS OF PAIN. ASSESSMENT COMPLETED CHARTED. MEDICATION ADMIN PER EMAR. DISCUSSED PLAN OF CARE WITH PT, VERBALIZED UNDERSTADNING. PT SCHEDULED FOR DIALYSIS AT 1300 ON 03/20/18. PT ON BEDREST, POSITION CHANGE ENCOURAGED AND PT TURNS SELF IN BED. ON RA. BED LOCKED IN LOWEST POSITION, CALL LIGHT WITHIN REACH, BED ALARM ON. WILL CONTINE TO MONITOR FOR REMAINDER OF THE SHIFT
[2018-03-20 04:00] VITALS: BP 171/64
--- NOTE | 2018-03-20 05:05 | NUR ---
BEGAN CARE OF PT AT APPROXIMATELY 0200 TODAY. PT IS ABLE COMMUNICATE HER NEEDS TO STAFF WITH MINOR DIFFICULTY; SHE IS BLIND IN ONE EYE AND HAS ONLY PARTIAL VISION WITH THE OTHER. SHE HAS DENIED THE NEED FOR PAIN MEDICATION UP TO THIS TIME. SHE IS TENTATIVELY SCHEDULED TO HAVE HEMODIALYSIS HERE THIS AFTERNOON; HER USUAL DIALYSIS SCHEDULE IS MON//MON, BUT SHE MISSED THIS PAST MONDAY.
[2018-03-20 05:07] LABS: HEMATOCRIT 36.2 % (37.0-47.0); HEMOGLOBIN 11.5 gm/dL (12.0-15.0); MCH 31.4 pg (26.0-34.0); MCHC 31.9 g/dL (28.0-37.0); MCV 98.4 fL (80.0-100.0); MPV 11.7 fl. (7.2-11.1); RBC 3.68 mil/uL (4.20-5.00); RDW-CV 14.2 % (10.5-14.5); WBC 7.3 thou/uL (4.0-11.0)
[2018-03-20 05:22] LABS: CALCIUM 8.1 mg/dL (8.5-10.1); MAGNESIUM 1.8 mg/dL (1.8-2.4); POTASSIUM 4.5 mmol/L (3.5-5.1)
[2018-03-20 05:29] LABS: CREATININE 3.1 mg/dL (0.6-1.3)
--- NOTE | 2018-03-20 10:13 | NUR ---
Pt is A&O. Resides at home with her son. Son assists with IADLS and ADLs. Pt known to this CM from previous hospital stays. Pt uses a wc for mobility. Pt is current at [facility] on schedule, son drives. Hx of [facility]. Hx of HH with [facility]. Pt's goal is to return home at dc. CM [facility]. Spoke with nurse, Pt may be ready to dc today after dialysis. Following.
[2018-03-20 11:10] VITALS: BP 158/54
[2018-03-20] MEDS ORDERED: HYDRALAZINE 2525 MG PO (11:25)
[2018-03-20 17:12] VITALS: BP 158/54
--- NOTE | 2018-03-20 18:33 | NUR ---
ORDER RECEIVED TO DISCAHRGE PATIENT HOME TO SELF CARE. MED REC, MEDICATION EDUCATION, STROKE EDUCATION AND NEED FOR FOLLOW UP APPOINTMNETS COVERED AND STATED UNDERSTOOD BY Camila. IV AND TELEMRTRY PACK REMOVED. PATIENT GIVEN SCRIPT FOR ANTI-HYPERTENSIVE. HOURLKY ROUNDING COMPLETED FOR PATIENT SAFETY.
--- NOTE | 2018-03-21 11:36 | CON ---
[address] [address] CONSULTATION Name: ERIN GRISSOM Room: [address] Olga Reed#: [id number] Admission: 03/19/18 Attend Phys: Kyle Abbasi Discharge: 03/20/18 Date of : 59 Report #: [id number] THIS REPORT FOR: //name// CC: KYLE physician/PCP Agustin Garcia DATE OF SERVICE: 03/19/2018 HISTORY OF PRESENT ILLNESS: The patient is a 62-year-old female with end-stage renal disease, presents with hypertensive urgency and hypoglycemia. She normally dialyzes on Monday, , Monday schedule, but she missed her dialysis on Monday, so that is why we are dialyzing her today. PAST MEDICAL HISTORY: Severe peripheral arterial disease, coronary artery disease, history of end-stage renal disease, history of diabetes, history of depression. MEDICATIONS: Reviewed. SOCIAL HISTORY: Used to smoke, but quit smoking. PHYSICAL EXAMINATION: GENERAL: Seen on dialysis, awake and alert. VITAL SIGNS: Blood pressure is now 198/80, heart rate 65, afebrile. HEENT: Pupils are round. NECK: With elevated JVD. LUNGS: Shows few coarse breath sounds. CARDIOVASCULAR: Irregular rate. ASSESSMENT: End-stage renal disease. The patient admitted with hypertensive urgency and hypoglycemia. PLAN: I will provide dialysis while she is in the hospital. <ELECTRONICALLY SIGNED> By: Ranjit Parks MD 03/21/18 1136 1119 1609Alexjessica Parks MD /[facility]
--- NOTE | 2018-03-23 08:12 | CON ---
[address] [address] CONSULTATION Name: ERIN GRISSOM Room: [address] Olga Reed#: [id number] Admission: 03/19/18 Attend Phys: Kyle Abbasi Discharge: 03/20/18 Date of : 59 Report #: [id number] THIS REPORT FOR: //name// CC: KYLE physician/PCP Agustin Garcia DATE OF SERVICE: 03/19/2018 TYPE OF REPORT: Cardiology consultation. HISTORY OF THE PRESENT ILLNESS: The patient is a 62-year-old single white female who I was asked to see in the hospital today after she was noted to have elevated blood pressure. The patient has an extensive and complicated past medical history. She has a long history of diabetes. In 2008, she underwent coronary artery bypass surgery at [facility]. She has been on hemodialysis for the past 3 years. She also had previous stents placed in the left leg and eventually underwent left below the knee amputation for PAD. She has been followed by my partner, Dr. Ramirez. She last saw Dr. Ramirez in December. She has been taken off of beta blockers because of bradycardia. The patient goes to dialysis on Tuesdays, and Saturdays. However, 2 days ago, she skipped dialysis. She did not feel well. She felt nauseated, vomited and had some abdominal discomfort. Today, she was at home and her blood sugar was low. She was brought to the emergency room this morning by her son. She apparently ate dinner last night and took her insulin. She was somewhat confused. She is legally blind. She was admitted when her blood pressure noted to be elevated. PAST MEDICAL HISTORY: Otherwise significant for carpal tunnel surgery, cataract extraction, hysterectomy, hypertension, diabetes and hyperlipidemia. MEDICATIONS: Consist of aspirin, amiodarone, insulin, amlodipine, clonidine, hydralazine and Aldactone. ALLERGIES: She has no known drug allergies. FAMILY HISTORY: Positive for diabetes. SOCIAL HISTORY: She is , lives in [place]. No smoking or alcohol abuse. REVIEW OF SYSTEMS: She has had no history of stroke or asthma. She has had a peptic ulcer. No liver disease. No cancer. No psychiatric illness. PHYSICAL EXAMINATION: GENERAL: Revealed an elderly frail appearing female who was lying in bed. She [place] [address] CONSULTATION Name: ERIN GRISSOM [address] [id number] Admission: 03/19/18 Attend Phys: Kyle Abbasi Discharge: 03/20/18 Date of : 59 Report #: [id number] VITAL SIGNS: She had blood pressure of 200/90, pulse 70 and she is afebrile. HEENT: She was anicteric. Conjunctivae pale. Mucous members appear dry. NECK: Veins do not appear distended. CHEST: Clear to auscultation. CARDIOVASCULAR: Regular rhythm. ABDOMEN: Soft. EXTREMITIES: The right lower extremity had no edema. SKIN: Cool and dry. RADIOLOGICAL DATA: Her ECG on admission this morning showed sinus rhythm and poor R-wave progression. Her workup, she had an echocardiogram done in July of this year that showed left ventricular hypertrophy, ejection fraction 40%, left atrial enlargement, aortic sclerosis, mild mitral regurgitation and no pericardial effusion. Her workup in the Emergency Room included a chest x-ray that showed cardiomegaly, clear lung stevenson and no effusions. LABORATORY DATA: Her lab work: Sodium 139, potassium was 3.0, BUN 117 and creatinine 6.1. Her liver function studies appeared normal. Troponin 0.07. BNP 35,000. TSH 2.0. Her white blood cell count 9.5 and hemoglobin 12.2. IMPRESSION AND RECOMMENDATIONS: 1. Hypoglycemia. The patient is on insulin. 2. Hypertension. The patient has been on clonidine, calcium quoc and hydralazine. I would recommend increase the dose of hydralazine. 3. Cardiomyopathy. The patient was taken off of beta quoc because of bradycardia. 4. Coronary artery disease. No recent angina. 5. Peripheral arterial disease with previous amputation. 6. Legally blind. 7. History of atrial fibrillation. The patient is on amiodarone. <ELECTRONICALLY SIGNED> By: Trevor Beck MD, FACC 03/23/18 0812 1152 1211Djacquie Beck MD, FAC /nt
== END 2018-03-20 19:29 | disposition home or self-care (01) ==
LOC: M.ERS 02:28 → M.2W 03:41 → M.TBA-ER 03:41 → M.2W 10:15
PROVIDERS: Emergency Medicine Emergency Medical Services; Internal Medicine; ADMIT Internal Medicine
DX: I16.0 Hypertensive urgency (principal); I25.10 Atherosclerotic heart disease of native coronary artery without angina pectoris; I13.2 Hypertensive heart and chronic kidney disease with heart failure and with stage 5 chronic kidney disease, or end stage renal disease; E10.22 Type 1 diabetes mellitus with diabetic chronic kidney disease; I50.32 Chronic diastolic (congestive) heart failure; N18.6 End stage renal disease; I42.9 Cardiomyopathy, unspecified; I73.9 Peripheral vascular disease, unspecified; I48.91 Unspecified atrial fibrillation; K31.84 Gastroparesis; E87.6 Hypokalemia; F41.9 Anxiety disorder, unspecified; F32.9 Major depressive disorder, single episode, unspecified; H54.8 Legal blindness, as defined in USA; R79.89 Other specified abnormal findings of blood chemistry; Z99.2 Dependence on renal dialysis; Z87.891 Personal history of nicotine dependence; Z91.15 Patient's noncompliance with renal dialysis

== ENCOUNTER 2018-04-07 13:34 | Inpatient (IN) | payer OTHER, MEDICAID ==
[~2018-04-07] VITALS: Ht 162.6 cm; Wt 55.8 kg
[2018-04-07 13:41] VITALS: BP 150/53
[2018-04-07 14:29] LABS: HEMATOCRIT 31.4 % (37.0-47.0); HEMOGLOBIN 10.3 gm/dL (12.0-15.0); MCH 31.3 pg (26.0-34.0); MCHC 32.8 g/dL (28.0-37.0); MCV 95.6 fL (80.0-100.0); MPV 10.6 fl. (7.2-11.1); NUCLEATED RBCS 0 /100WBC; PLATELET COUNT* 204 thou/uL (150-400); RBC 3.29 mil/uL (4.20-5.00); RDW-CV 13.7 % (10.5-14.5); WBC 16.3 thou/uL (4.0-11.0)
[2018-04-07 14:38] LABS: APTT 32.9 Seconds (25.0-31.3); CALCIUM 8.8 mg/dL (8.5-10.1); CREATININE 2.2 mg/dL (0.6-1.3); INR 1.2; POTASSIUM 4.1 mmol/L (3.5-5.1); PROTIME 11.9 Seconds (9.20-11.50)
[2018-04-07 14:55] LABS: ALBUMIN 2.7 g/dL (3.4-5.0); TOTAL BILIRUBIN 0.4 mg/dL (<0.1-1.0); TOTAL PROTEIN 6.6 g/dL (6.4-8.2)
[2018-04-07 15:02] LABS: ABSOLUTE LYMPHOCYTES 0.3 thou/uL (0.8-5.3); ABSOLUTE MONOCYTES 0.3 thou/uL (0.0-1.2); ABSOLUTE NEUTROPHILS 15.6 thou/uL (1.6-8.1); METAMYELOCYTES 1 %
[2018-04-07 15:03] LABS: PLATELET ESTIMATE ADEQUATE
[2018-04-07 15:44] VITALS: BP 150/53
[2018-04-07 16:00] VITALS: BP 148/55
[2018-04-07 20:13] VITALS: BP 183/58
[2018-04-08] VITALS (35 sets, daily range): BP systolic 78–160; BP diastolic 37–66
[2018-04-08 00:28] LABS: HEMOGLOBIN 10.6 gm/dL (12.0-15.0); MCH 30.5 pg (26.0-34.0); MCHC 31.3 g/dL (28.0-37.0); MCV 97.5 fL (80.0-100.0); MPV 11.8 fl. (7.2-11.1); PLATELET COUNT* 235 thou/uL (150-400); RBC 3.49 mil/uL (4.20-5.00); RDW-CV 14.2 % (10.5-14.5); WBC 28.5 thou/uL (4.0-11.0)
[2018-04-08 00:37] LABS: INR 1.2
[2018-04-08 00:38] LABS: HCO3 19.5 mmol/L (22.0-26.0); PCO2 30.3 mmHg (35.0-45.0); pH 7.426 (7.340-7.450)
[2018-04-08 00:39] LABS: PO2 456.5 mmHg (75.0-100.0)
[2018-04-08 00:41] LABS: ALBUMIN 2.5 g/dL (3.4-5.0); CALCIUM 8.8 mg/dL (8.5-10.1); CREATININE 3.1 mg/dL (0.6-1.3); POTASSIUM 3.5 mmol/L (3.5-5.1); TOTAL BILIRUBIN 0.3 mg/dL (<0.1-1.0); TOTAL PROTEIN 6.4 g/dL (6.4-8.2)
[2018-04-08 00:42] LABS: MAGNESIUM 1.8 mg/dL (1.8-2.4); TROPONIN-I LEVEL <0.06 ng/mL (<0.06)
[2018-04-08 00:55] LABS: URINE BILIRUBIN NEGATIVE (Negative); URINE BLOOD 1+ (Negative); URINE CLARITY CLEAR; URINE COLOR YELLOW; URINE GLUCOSE-RANDOM NEGATIVE (Negative); URINE KETONES NEGATIVE (Negative); URINE LEUKOCYTES-REFLEX 3+ (Negative); URINE NITRITE-REFLEX NEGATIVE (Negative); URINE PROTEIN 3+ (Negative); URINE UROBILINOGEN 0.2 E.U./dl (0.2-1.0)
[2018-04-08 00:57] LABS: BACTERIA-REFLEX >30 Many /HPF (None Seen); CASTS None Seen /LPF (None Seen); CRYSTALS None Seen /LPF (None Seen); MUCUS 0-3 Light strn/LPF (None Seen); SQUAMOUS 0-3 Few /LPF (0-3); URINE WBC-REFLEX >25 Many /HPF (0-5); WBC CLUMPS Moderate (None Seen)
[2018-04-08 01:40] LABS: BE -3.4 mmol/L (-2 to +3); HCO3 20.4 mmol/L (22.0-26.0); PCO2 32.3 mmHg (35.0-45.0); pH 7.419 (7.340-7.450)
[2018-04-08 01:43] LABS: PO2 142.7 mmHg (75.0-100.0)
[2018-04-08 01:51] LABS: ABSOLUTE EOSINOPHILS 0.3 thou/uL (0.0-0.7); ABSOLUTE LYMPHOCYTES 5.4 thou/uL (0.8-5.3); ABSOLUTE MONOCYTES 1.1 thou/uL (0.0-1.2); ABSOLUTE NEUTROPHILS 21.7 thou/uL (1.6-8.1); ATYPICAL LYMPHS 1 %; PLATELET ESTIMATE ADEQUATE; TOXIC GRANULATION 1+
[2018-04-08 07:41] LABS: BE -4.9 mmol/L (-2 to +3); HCO3 19.4 mmol/L (22.0-26.0); pH 7.387 (7.340-7.450)
[2018-04-08 07:42] LABS: PO2 149.9 mmHg (75.0-100.0)
--- NOTE | 2018-04-08 08:59 | CON ---
[address] [address] CONSULTATION Name: JACIELERIN RICKETTS Room: [address] IN M.R.#: [id number] Admission: 04/07/18 Attend Phys: Marshall Benito, Discharge: Date of : 59 Report #: [id number] THIS REPORT FOR: //name// CC: FAM physician/PCP Marshall Benito DATE OF SERVICE: 04/08/2018 REFERRING PHYSICIAN: Marshall Benito MD CHIEF COMPLAINT: Respiratory failure. HISTORY OF PRESENT ILLNESS: The patient is a 62-year-old female who presented to the emergency room after her scheduled dialysis yesterday. She apparently had fallen at the dialysis center injuring her right lower extremity. She apparently had sustained a fracture. See formal dictated radiographic report. The patient was admitted to the hospital. She was seen and evaluated by the hospitalist service, as well as the orthopedic service. Surgery was scheduled for this morning. During the course of her followups in the orthopedic floor, the patient was found to be pulseless, unresponsive. Actually, her pulse was weak. She underwent a code blue. She was intubated and after successful resuscitation, transferred to the intensive care unit. PAST MEDICAL HISTORY: Significant for coronary artery disease. She has had amputation of the left lower extremity below the knee. She has peripheral neuropathy, chronic atrial fibrillation, history of gastroparesis. She has end-stage renal disease. She is on chronic dialysis. She has diabetes. She has visual deficiency in the right eye. She has had history of depression, gastroesophageal reflux. ALLERGIES: None known. SOCIAL HISTORY: Lifelong nonsmoker for the most part based on the records. REVIEW OF SYSTEMS: Not available at this time. CURRENT MEDICATIONS: Consist of clonidine, allopurinol, Celexa, vitamin supplement, Protonix, Zosyn, amiodarone, aerosol treatments with DuoNeb. She has been getting midazolam drip as titration. PHYSICAL EXAMINATION: VITAL SIGNS: Blood pressure 91/41, respiratory rate 17-20, pulse rate 81 and irregular, temperature 99.9 degrees. She had spiked [place] [address] CONSULTATION Name: ERIN GRISSOM Room: [address] IN [facility]#: [id number] Admission: 04/07/18 Attend Phys: Marshall Benito, Discharge: Date of : 59 Report #: [id number] morning of about 103. GENERAL APPEARANCE: She is sedated. She is orally intubated. HEENT: Head is atraumatic. EYES: Pupils appear round, equal, reactive. Sclerae and conjunctivae are clear. NECK: Without adenopathy. Oral cavity appears moist. The endotracheal tube is intact. It is a 7.5 cm ET tube. NECK: No adenopathy. CHEST: She has diminished breath sounds. No wheezes or rhonchi. Breath sounds are equal bilaterally. CARDIOVASCULAR: Distant heart tones, irregular rhythm. ABDOMEN: Soft. EXTREMITIES: There is no appreciable edema in the right lower extremity. Her right lower extremity was not been manipulated due to the recent fracture. SKIN: Appears warm, dry. There is no obvious rash effect. NEUROLOGIC: She is sedated. LABORATORY DATA: Her admission electrolytes reveal sodium 130, potassium 3.5, chloride 94, CO2 of 26, BUN of 21, creatinine 3.1, total protein is normal. Liver enzymes are in the normal range. EGFR is 23-25. INR 1.2. Hemoglobin and hematocrit of 10.6 and 34 with white count 81601. UA revealed greater than 25 WBCs per high power field, as well as bacteria. Most recent arterial blood gas revealed a pH 7.42, pCO2 of 32, pO2 of 143, bicarbonate of 20 while on 50% FiO2. She is on assist control of 14, tidal volume of 400, and PEEP of 5. MEDICAL IMAGING STUDIES: Chest x-ray this morning has been obtained and the ET tube for positioning has not been evaluated due to the fact it is not on the PACS system yet. Her admission see a cat hour. Her admission chest x-ray did not reveal any evidence of infiltrates or effusions. There were no acute abnormalities. The right-sided dialysis catheter was in adequate position and obviously she had previous median sternotomy from her prior bypass surgery. There was no evidence of effusion or pneumothorax or mass effect. CT of the brain had been performed as well. There were no acute intracranial abnormalities. A CT of the lower extremity revealed a comminuted displaced acute fracture to the proximal tibial shaft extending into the lateral tibial shaft. There was an impacted acute proximal fibular fracture, no evidence of dislocation. There was soft tissue swelling present as well. ASSESSMENT: 1. Acute fracture of the right tibia-fibula area as described above. 2. Status post code blue resulting in successful resuscitation. 3. Chronic atrial fibrillation. 4. Acute respiratory failure, requiring intubation. 5. Chronic kidney disease. 6. Sepsis. She had an elevated temperature and elevated white count. 7. [place] [address] CONSULTATION Name: ERIN GRISSOM Room: [address] IN M.R.#: [id number] Admission: 04/07/18 Attend Phys: Marshall DianaCarlos Jigna, Discharge: Date of : 59 Report #: [id number] RECOMMENDATION: The ventilator will be adjusted accordingly. Continue with minimal sedation. When the patient becomes stable, then proceed with weaning trials. Do not anticipate this in the next 24-48 hours. She needs to be treated for underlying sepsis syndrome. Antibiotics have been started. She has been cultured. Continue with aerosol treatments for the time being as well. Follow up arterial blood gases, lab work, and chest x-ray in the a.m. <ELECTRONICALLY SIGNED> By: Ean Lund MD 04/08/18 0859 0656 [id number] Lund MD /nt
--- NOTE | 2018-04-08 11:37 | EKG ---
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 : 1955 Requested By: Alyssia Wilkinson Order Number: [id number] MD: Alexis Ramirez Measurements Intervals [place] Rate: 55 P: 94 [place]: 193 QRS: 53 QRSD: 99 T: 75 QT: 609 QTc: 583 Interpretive Statements Sinus rhythm Anterior infarct, old Prolonged QT interval Compared to ECG 03/19/2018 02:42:38 First degree AV block no longer present Myocardial infarct finding still present Electronically Signed On 04-08-2018 11:36:51 CDT by Alexis Ramirez [email or web address] <ELECTRONICALLY SIGNED> By: Alexis Ramirez MD, FACC 04/08/18 1136 1437 1437 Alexis Ramirez MD, FAC /EPI
--- NOTE | 2018-04-08 11:38 | EKG ---
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 : 1955 Requested By: Marshall Benito Order Number: [id number] Giuliana MD: Alexis Ramirez Measurements Intervals [place] Rate: 142 P: [place]: QRS: 76 QRSD: 115 T: 135 QT: 298 QTc: 458 Interpretive Statements Atrial fibrillation Low voltage, extremity leads LVH with secondary repolarization abnormality Anterior ST elevation, probably due to LVH Compared to ECG 03/19/2018 02:42:38 Low QRS voltage now present Left ventricular hypertrophy now present Early repolarization now present ST (T wave) deviation now present Sinus rhythm no longer present First degree AV block no longer present Myocardial infarct finding no longer present Prolonged QT interval no longer present Electronically Signed On 04-08-2018 11:37:58 CDT by Alexis Ramirez [email or web address] <ELECTRONICALLY SIGNED> By: Alexis Ramirez MD, FACC 04/08/18 1137 2336 2336 Alexis Ramirez MD, FAC /EPI
[2018-04-08 15:01] LABS: ABSOLUTE BASOPHILS 0.1 thou/uL (0.0-0.2); ABSOLUTE LYMPHOCYTES 0.9 thou/uL (0.8-5.3); ABSOLUTE MONOCYTES 0.9 thou/uL (0.0-1.2); ABSOLUTE NEUTROPHILS 20.7 thou/uL (1.6-8.1); BASOPHILS 0.4 %; HEMATOCRIT 27.3 % (37.0-47.0); HEMOGLOBIN 8.8 gm/dL (12.0-15.0); LYMPHOCYTES 4.1 %; MCHC 32.1 g/dL (28.0-37.0); MCV 96.6 fL (80.0-100.0); MONOCYTES 3.9 %; MPV 11.1 fl. (7.2-11.1); NUCLEATED RBCS 0 /100WBC; PLATELET COUNT* 176 thou/uL (150-400); POLYS 91.6 %; RBC 2.83 mil/uL (4.20-5.00); RDW-CV 14.1 % (10.5-14.5); WBC 22.6 thou/uL (4.0-11.0)
--- NOTE | 2018-04-08 19:32 | CON ---
[address] [address] CONSULTATION Name: ERIN GRISSOM Room: [address] IN M.R.#: [id number] Admission: 04/07/18 Attend Phys: Marshall Benito, Discharge: Date of : 59 Report #: [id number] THIS REPORT FOR: //name// CC: FAM physician/PCP Marshall Benito DATE OF SERVICE: 04/08/2018 CONSULTING PHYSICIAN: Dr. Benito. REASON FOR NEPHROLOGY CONSULTATION: End-stage renal disease. REASON FOR ADMISSION: Fall, right leg fracture. HISTORY OF PRESENT ILLNESS: This is a 62-year-old female who has past medical history of end-stage renal disease and she is on hemodialysis every Monday, and Monday; last dialysis was yesterday, she had a fall yesterday at the dialysis unit. She did complete her whole dialysis and she was brought to the Emergency Room and was found to have a right leg tibial and fibular fracture and she was admitted to the Ortho Spine Unit. She was found to be unresponsive in her bed here in the hospital and had PEA and chest compressions were done for about 5 minutes along with one round of epinephrine and she had return of spontaneous circulation after that. Currently, she is in the ICU on 40% FiO2, not on any pressors, trying to wake up. She has a potassium of 3.5. She does have elevated white count of 29,000. The exact reason for her cardiopulmonary arrest yesterday is not very clear. Her urine output is pretty minimal and it does show some bacteria and leukocyte, so she has been started on empiric antibiotic treatment. ALLERGIES: No known drug allergies. REVIEW OF SYSTEMS: I cannot obtain review of systems as she is intubated currently, please go by what is mentioned in history of present illness. HOME MEDICATIONS: Include hydralazine, clonidine, sucralfate, pantoprazole, hydralazine, spironolactone, aspirin, allopurinol, cyanocobalamin, calcium acetate, trazodone, citalopram, amiodarone, insulin glargine, clopidogrel, amlodipine, insulin lispro, metoclopramide, collagenase and glucagon. 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 FAMILY HISTORY: [place] [address] CONSULTATION Name: ERIN GRISSOM Room: [address] IN .R.#: [id number] Admission: 04/07/18 Attend Phys: Marshall Benito, Discharge: Date of : 59 Report #: [id number] SOCIAL HISTORY: She does not smoke or take alcohol or use recreational drugs. PHYSICAL EXAMINATION: VITAL SIGNS: Blood pressure is 91/41, respiration rate is 21, pulse rate is 81, temperature 37.7, pulse ox 100% on 40% FiO2. GENERAL: She is intubated currently, she is trying to move a little bit. HEAD, EYES, EARS, NOSE AND THROAT: ET tube in place. NECK: There is no JVD. CHEST: Clear to auscultation bilaterally, no crackles or wheezing. CARDIOVASCULAR: S1 and S2 normal. No murmurs or rubs. ABDOMEN: Soft, nontender, bowel sounds present. EXTREMITIES: There is no lower extremity edema, symmetrical lower extremities. DIALYSIS ACCESS: She has a right IJ tunneled dialysis catheter, which is intact. No erythema or drainage around the site. PSYCHIATRIC: I cannot assess. NEUROLOGIC: She is currently intubated and she is just trying to wake up. LABORATORY DATA: WBC 28.5, hemoglobin 10.6, and platelet count is 235. Sodium is 130 and her potassium was 3.5, other labs were reviewed. CO2 was 26. IMAGING: Chest x-ray, abdominal x-ray, lower extremity CT, they were reviewed. She also had echocardiogram done, but that was in 07/2017, which showed 40% ejection fraction. ASSESSMENT: 1. End-stage renal disease, on hemodialysis every Monday, and Monday; last dialysis was on Monday, yesterday. 2. Status post cardiopulmonary arrest, exact etiology is not known, differential diagnosis includes the fat embolism or pulmonary embolism. 3. Hypertension, blood pressure is currently controlled. 4. Diabetes mellitus type 2, primary team is managing her blood glucose. 5. Status post mechanical fall and she has a right tibial plateau fracture and fibular fracture, Orthopedics is following. When she is more stable, they will plan on surgical intervention. 6. Positive UA for urinary tract infection, unsure if patient was having any symptoms or not, but she has been started on empiric antibiotic treatment in the form of Zosyn and vancomycin. 7. Anemia of chronic kidney disease, hemoglobin 10.6 at goal. PLAN: 1. There is no acute need for dialysis today. 2. Discussed with Dr. Lund and a CTA will be done since no exact etiology can be ascertained, so as to why she had cardiopulmonary arrest and we need to rule out fat or pulmonary embolism. [address] [address] CONSULTATION Name: JACIELERIN Room: [address] ADM IN .R.#: [id number] Admission: 04/07/18 Attend Phys: Marshall Benito, Discharge: Date of : 59 Report #: [id number] 3. We will continue to follow with you. Thank you for this consultation. I had discussed the plan with the patient's nurse and Dr. Lund and we will continue to follow along with you. <ELECTRONICALLY SIGNED> By: Basilia Uriostegui MD 04/08/18 1932 0820 [id number] Uriostegui MD /nt
[2018-04-08 21:43] LABS: ABSOLUTE EOSINOPHILS 0.1 thou/uL (0.0-0.7); ABSOLUTE LYMPHOCYTES 1.2 thou/uL (0.8-5.3); ABSOLUTE MONOCYTES 1.2 thou/uL (0.0-1.2); ABSOLUTE NEUTROPHILS 20.7 thou/uL (1.6-8.1); BASOPHILS 0.2 %; EOSINOPHILS 0.5 %; HEMATOCRIT 27.4 % (37.0-47.0); HEMOGLOBIN 8.8 gm/dL (12.0-15.0); LYMPHOCYTES 5.3 %; MCH 31.2 pg (26.0-34.0); MCHC 32.2 g/dL (28.0-37.0); MCV 96.9 fL (80.0-100.0); MONOCYTES 5.1 %; MPV 11.1 fl. (7.2-11.1); NUCLEATED RBCS 0 /100WBC; PLATELET COUNT* 203 thou/uL (150-400); POLYS 88.9 %; RBC 2.83 mil/uL (4.20-5.00); RDW-CV 14.2 % (10.5-14.5); WBC 23.3 thou/uL (4.0-11.0)
[2018-04-08 21:49] LABS: CALCIUM 8.7 mg/dL (8.5-10.1); POTASSIUM 3.8 mmol/L (3.5-5.1)
[2018-04-08 21:50] LABS: BE 0.3 mmol/L (-2 to +3); HCO3 26.3 mmol/L (22.0-26.0)
[2018-04-08 21:51] LABS: APTT 37.8 Seconds (25.0-31.3)
[2018-04-08 21:52] LABS: CREATININE 4.1 mg/dL (0.6-1.3)
[2018-04-08 22:01] LABS: PHOSPHORUS* 3.5 mg/dL (2.5-4.9); TOTAL BILIRUBIN 0.4 mg/dL (<0.1-1.0); TOTAL PROTEIN 5.7 g/dL (6.4-8.2)
[2018-04-09] VITALS (24 sets, daily range): BP systolic 72–175; BP diastolic 31–68
[2018-04-09 03:32] LABS: HEMATOCRIT 26.7 % (37.0-47.0); HEMOGLOBIN 8.7 gm/dL (12.0-15.0); MCH 31.2 pg (26.0-34.0); MCHC 32.5 g/dL (28.0-37.0); MCV 96.1 fL (80.0-100.0); MPV 10.9 fl. (7.2-11.1); RBC 2.77 mil/uL (4.20-5.00); RDW-CV 13.9 % (10.5-14.5)
[2018-04-09 03:44] LABS: PROTIME 10.2 Seconds (9.20-11.50)
[2018-04-09 03:51] LABS: ALBUMIN 1.9 g/dL (3.4-5.0); CALCIUM 8.7 mg/dL (8.5-10.1); CREATININE 4.4 mg/dL (0.6-1.3); MAGNESIUM 1.7 mg/dL (1.8-2.4); POTASSIUM 4.1 mmol/L (3.5-5.1); TOTAL BILIRUBIN 0.4 mg/dL (<0.1-1.0); TOTAL PROTEIN 5.6 g/dL (6.4-8.2); TROPONIN-I LEVEL 0.08 ng/mL (<0.06)
--- NOTE | 2018-04-09 08:06 | CON ---
[address] [address] CONSULTATION Name: JACIELERIN RICKETTS Room: [address] IN M.R.#: [id number] Admission: 04/07/18 Attend Phys: Marshall Benito, Discharge: Date of : 59 Report #: [id number] THIS REPORT FOR: //name// CC: KYLE physician/PCP Marshall Benito DATE OF SERVICE: 04/08/2018 INFECTIOUS DISEASE CONSULTATION ATTENDING PHYSICIAN: Marshall Benito M.D. REASON FOR EVALUATION: Sepsis, probable aspiration pneumonitis post cardiopulmonary arrest. HISTORY OF PRESENT ILLNESS: Chart reviewed, the patient examined. This is a 62-year-old woman, known to myself, who has extensive medical history given her age. She has diabetes mellitus with severe sequelae, including diffuse vasculopathy and end-stage renal disease, on dialysis. She has had confirmed coronary artery disease. She has a previous left [id number] amputation as a result of chronic osteomyelitis. Apparently, she sustained an injury, a comminuted fracture involving her right lower extremity. This involved a fall that is related to surrounding dialysis. She was admitted and was scheduled to have operative procedure; however, she was found pulseless. She underwent cardiopulmonary pulmonary resuscitation lasting about 5 minutes and was revived and seen in the Intensive Care Unit. She is on ventilatory support at this point. Chest x-ray was otherwise unremarkable. White count was mildly elevated at 16,000. Lactic acid, however, was elevated at 4.1. She was empirically placed on broad-spectrum antimicrobials dosed with vancomycin with one dose adjusted for renal insufficiency as well as piperacillin and tazobactam. ALLERGIES: None known. MEDICATIONS: Include clonidine, allopurinol, metoclopramide, citalopram, amlodipine, cyanocobalamin, insulin, pantoprazole, Zosyn, amiodarone, ipratropium and albuterol inhaler, p.r.n. analgesics and antiemetics. She is currently not on any pressors. PAST MEDICAL HISTORY: As described above, diabetes mellitus; diffuse vasculopathy; known coronary artery disease; peripheral vascular disease; history of end-stage renal disease, on dialysis; history of chronic atrial fibrillation and gastroparesis. She has cardiomyopathy and history of congestive heart failure. She has right eye blindness, previous hysterectomy. SOCIAL HISTORY: Nonsmoker, [place] [address] CONSULTATION Name: ERIN GRISSOM Room: [address]#: [id number] Admission: 04/07/18 Attend Phys: Marshall Benito, Discharge: Date of : 59 Report #: [id number] FAMILY HISTORY: Noncontributory. REVIEW OF SYSTEMS: Not obtainable. PHYSICAL EXAMINATION: GENERAL: She appears chronically ill, at her age of 62. She is sedated, maintained on the vent. She is in supine position. VITAL SIGNS: Temperature 99.9, pulse 93, respirations 16 and blood pressure 87/45. SKIN: Warm, dry. HEENT: ET tube in place. NECK: Appears to be supple. LUNGS: Diminished breath sounds, scattered crackles at the bases. HEART: Borderline tachycardic and is somewhat irregular. ABDOMEN: Soft. There are no apparent peritoneal signs. GENITOURINARY: Deferred. RECTAL: Deferred. LABORATORY DATA: CTA chest PE protocol, no evidence of deep venous thrombosis. There is atelectasis down the bases. ABGs, pH of 7.387, pCO2 of 33 and pO2 of 149.9; that was on 40% on the vent. Lactic acid initially was 4.1, repeat serially was 1.9. CBC: White count of 28.5, it is up from 14; H and H are 10.6 and 34.0 and platelets of 235,000. She does have lymphocytopenia of absolute count of 5400, 1+ toxic granulations. Urinalysis show greater than 25 white cells, greater than [address] of the lower extremity with comminuted displaced acute fracture through the proximal tibia shaft, extending into the lateral tibial plateau, impacted acute proximal fibular fracture. Liver functions, alkaline phosphatase of 130, otherwise unremarkable. Albumin 2.7. Total protein 6.6. ASSESSMENT AND PLAN: Cardiopulmonary arrest with resuscitation, complicated by now with marked leukocytosis. There is no clear evidence of aspiration at this point, although there is certainly a risk. She does not appear to have a complicated urinary tract infection. However, it is reasonable to continue empiric therapy at a risk for nosocomial-related infectious complications as well. Continue supportive efforts at this point and perhaps we will be able to wean related to the ventilator in the next 24-48 hours. We will await culture results. Certainly, I think in this setting, she could have an occult septicemia. <ELECTRONICALLY SIGNED> By: Raymundo Sinclair MD 04/09/18 0806 1129 [id number] Sinclair MD /nt
--- NOTE | 2018-04-09 13:41 | 2DMMODE ---
[place] [address] 2 D/M-MODE ECHOCARDIOGRAM Name: JACIELERIN LILIAM Room: [address] ADM IN M.R.#: [id number] Admission: 04/07/18 Attend Phys: Marshall Page Discharge: Date of : 59 Date of Service: 04/09/18 1341 Report #: [id number] THIS REPORT FOR: //name// APPROVED REPORT Study performed: 04/09/2018 10:08:03 EXAM: Comprehensive 2D, Doppler, and color-flow Echocardiogram Patient Location: Bedside BSA: 1.63 HR: 60 bpm BP: 107/50 mmHg Other Information Study Quality: Good Indications Dyspnea 2D Dimensions IVSd: 11.77 (7-11mm) LVOT Diam: 17.27 (18-24mm) LVDd: 44.84 mm PWd: 9.57 (7-11mm) Ascending Ao: 25.05 (22-36mm) LVDs: 29.24 (25-40mm) Aortic Root: 25.53 mm Volumes Left Atrial Volume (Systole) LA ESV Index: 28.60 mL/m2 Aortic Valve AoV Peak Tj.: 1.33 m/s AO Peak Gr.: 7.06 mmHg LVOT Max P.77 mmHg AO Mean Gr.: 3.45 mmHg LVOT Mean P.75 mmHg LVOT Max V: 0.97 m/s AO V2 VTI: 24.81 cm LVOT Mean V: 0.60 m/s GURMEET (VTI): 1.89 cm2 LVOT V1 VTI: 20.04 cm Mitral Valve E/A Ratio: 1.93 MV Decel. Time: 221.70 ms MV E Max Tj.: 0.87 m/s MV PHT: 64.29 ms MVA (PHT): 3.42 [place]2 [place] [address] 2 D/M-MODE ECHOCARDIOGRAM Name: JACIELERIN Room: [address] IN .R.#: [id number] Admission: 04/07/18 Attend Phys: Marshall Page Discharge: Date of : 59 Date of Service: 04/09/18 1341 Report #: [id number] TDI E/Lateral E': 17.40 E/Medial E': 17.40 Medial E' Tj.: 0.05 m/s Lateral E' Tj.: 0.05 m/s Pulmonary Valve PV Peak Tj.: 1.05 m/s PV Peak Gr.: 4.44 mmHg Tricuspid Valve RAP Estimate: 5.00 mmHg TR Peak Gr.: 45.96 mmHg RVSP: 50.96 mmHg PA Pressure: 50.96 mmHg Left Ventricle The left ventricle is normal size. There is normal LV segmental wall motion. Mild concentric left ventricular hypertrophy. Left ventricular systolic function is normal. The left ventricular ejection fraction is within the normal range. LVEF is 50-55%. The left ventricular diastolic function is normal. Right Ventricle The right ventricle is normal size. The right ventricular systolic function is normal. Atria Left atrium is mildly dilated. The right atrium size is normal. Aortic Valve The Aortic valve is sclerotic. No aortic regurgitation is present. There is no aortic valvular stenosis. Mitral Valve The mitral valve is normal in structure. Trace mitral regurgitation. No evidence of mitral valve stenosis. Tricuspid Valve The tricuspid valve is normal in structure. Mild tricuspid regurgitation. estimated pa pressure 50 mm Hg Pulmonic Valve The pulmonary valve is normal in structure. Trace pulmonic regurgitation[place] [address] 2 D/M-MODE ECHOCARDIOGRAM Name: ERIN GRISSOM Room: [address] IN [facility]#: [id number] Admission: 04/07/18 Attend Phys: Marshall Page Discharge: Date of : 59 Date of Service: 04/09/18 1341 Report #: [id number] The aortic root is normal in size. IVC is normal in size and collapses >50% with inspiration. Pericardium There is no pericardial effusion. <Conclusion> Mild concentric left ventricular hypertrophy. LVEF is 50-55%. The Aortic valve is sclerotic. Mild tricuspid regurgitation. estimated pa pressure 50 mm Hg Left atrium is mildly dilated. <ELECTRONICALLY SIGNED> By: Trevor Beck MD, FACC 04/09/181340 40 40 Trevor Beck MD, FACC /INF
[2018-04-10] VITALS (19 sets, daily range): BP systolic 77–144; BP diastolic 32–73
[2018-04-10 03:45] LABS: HEMATOCRIT 27.4 % (37.0-47.0); HEMOGLOBIN 8.7 gm/dL (12.0-15.0); MCH 30.6 pg (26.0-34.0); MCHC 31.7 g/dL (28.0-37.0); MCV 96.4 fL (80.0-100.0); MPV 11.2 fl. (7.2-11.1); RBC 2.84 mil/uL (4.20-5.00); RDW-CV 14.1 % (10.5-14.5); WBC 19.8 thou/uL (4.0-11.0)
[2018-04-10 03:59] LABS: CALCIUM 8.8 mg/dL (8.5-10.1); MAGNESIUM 3.4 mg/dL (1.8-2.4); POTASSIUM 4.3 mmol/L (3.5-5.1); TROPONIN-I LEVEL 0.06 ng/mL (<0.06)
[2018-04-10 04:00] LABS: INR 0.9; PROTIME 9.5 Seconds (9.20-11.50)
[2018-04-10 04:02] LABS: CREATININE 5.6 mg/dL (0.6-1.3)
[2018-04-10 04:38] LABS: ALBUMIN 1.8 g/dL (3.4-5.0); CALCIUM 8.5 mg/dL (8.5-10.1); CREATININE 5.4 mg/dL (0.6-1.3); PHOSPHORUS* 4.8 mg/dL (2.5-4.9); POTASSIUM 4.3 mmol/L (3.5-5.1)
[2018-04-10 06:18] LABS: BE -2.7 mmol/L (-2 to +3); HCO3 23.2 mmol/L (22.0-26.0); PCO2 45.2 mmHg (35.0-45.0); pH 7.328 (7.340-7.450)
[2018-04-10 06:22] LABS: PO2 135.8 mmHg (75.0-100.0)
--- NOTE | 2018-04-10 11:56 | EKG ---
[place] [address] ELECTROCARDIOGRAM REPORT Name: JACIELERIN LILIAM Room: [address] ADM IN M.R.#: [id number] Admission: 04/07/18 Attend Phys: Marshall Benito, Discharge: Date of : 59 Report #: [id number] THIS REPORT FOR: //name// [facility] Test Date: 2018-04-10 Test Time: 09:42:30 Pat Name: ERIN GRISSOM Department: Room: [address] Gender: F Custody Officer: : 1955 Requested By: Alexis Ramirez Order Number: [id number] Reading MD: Alexis Ramirez Measurements Intervals [place] Rate: 123 P: [place]: QRS: 101 QRSD: 100 T: 61 QT: 364 QTc: 521 Interpretive Statements Atrial fibrillation Right axis deviation Anteroseptal infarct, old Repol abnrm suggests ischemia, lateral leads Prolonged QT interval Compared to ECG 04/07/2018 23:36:24 Right-axis deviation now present Myocardial infarct finding now present Possible ischemia now present Prolonged QT interval now present Left ventricular hypertrophy no longer present ST (T wave) deviation no longer present Electronically Signed On 04-10-2018 11:56:22 CDT by Alexis Ramirez [email or web address] <ELECTRONICALLY SIGNED> By: Alexis Ramirez MD, [facility] 04/10/18 1156 1 0942 Alexis Ramirez MD, [facility] /EPI
[2018-04-11] VITALS (17 sets, daily range): BP systolic 87–170; BP diastolic 40–64
[2018-04-11 00:27] LABS: HEMATOCRIT 23.9 % (37.0-47.0); HEMOGLOBIN 7.8 gm/dL (12.0-15.0); MCH 31.6 pg (26.0-34.0); MCHC 32.8 g/dL (28.0-37.0); MCV 96.5 fL (80.0-100.0); MPV 10.7 fl. (7.2-11.1); RBC 2.48 mil/uL (4.20-5.00); RDW-CV 14.3 % (10.5-14.5)
[2018-04-11 00:29] LABS: CALCIUM 8.2 mg/dL (8.5-10.1); CREATININE 4.5 mg/dL (0.6-1.3); POTASSIUM 3.9 mmol/L (3.5-5.1)
[2018-04-11 05:36] LABS: INR 0.9; PROTIME 9.7 Seconds (9.20-11.50)
[2018-04-11 05:44] LABS: CALCIUM 8.5 mg/dL (8.5-10.1); CREATININE 4.6 mg/dL (0.6-1.3); MAGNESIUM 2.7 mg/dL (1.8-2.4); POTASSIUM 4.1 mmol/L (3.5-5.1)
[2018-04-11 05:55] LABS: ALBUMIN 1.7 g/dL (3.4-5.0); CALCIUM 8.3 mg/dL (8.5-10.1); CREATININE 4.6 mg/dL (0.6-1.3); PHOSPHORUS* 2.6 mg/dL (2.5-4.9); POTASSIUM 4.1 mmol/L (3.5-5.1)
[2018-04-11 06:14] LABS: BE -0.2 mmol/L (-2 to +3); HCO3 25.1 mmol/L (22.0-26.0); PCO2 44.6 mmHg (35.0-45.0); pH 7.369 (7.340-7.450)
[2018-04-11 06:20] LABS: PO2 134.5 mmHg (75.0-100.0)
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
[2018-04-11 15:47] LABS: BE -3.1 mmol/L (-2 to +3); HCO3 22.6 mmol/L (22.0-26.0); PO2 123.7 mmHg (75.0-100.0); pH 7.329 (7.340-7.450)
[2018-04-11 18:48] LABS: BE -2.3 mmol/L (-2 to +3); HCO3 23.5 mmol/L (22.0-26.0); PO2 85.9 mmHg (75.0-100.0); pH 7.336 (7.340-7.450)
[2018-04-11 23:29] LABS: HEMATOCRIT 23.2 % (37.0-47.0); HEMOGLOBIN 7.3 gm/dL (12.0-15.0); MCH 30.6 pg (26.0-34.0); MCHC 31.6 g/dL (28.0-37.0); MCV 96.8 fL (80.0-100.0); MPV 10.1 fl. (7.2-11.1); RBC 2.4 mil/uL (4.20-5.00); RDW-CV 14.3 % (10.5-14.5); WBC 16.4 thou/uL (4.0-11.0)
[2018-04-11 23:38] LABS: CALCIUM 8.2 mg/dL (8.5-10.1); CREATININE 5.2 mg/dL (0.6-1.3); POTASSIUM 4.1 mmol/L (3.5-5.1)
[2018-04-12] VITALS (18 sets, daily range): BP systolic 144–216; BP diastolic 60–97
[2018-04-12 03:23] LABS: HCO3 22.6 mmol/L (22.0-26.0); PCO2 44.6 mmHg (35.0-45.0); PO2 134.5 mmHg (75.0-100.0)
[2018-04-12 03:24] LABS: BE -0.2 mmol/L (-2 to +3)
[2018-04-12 04:05] LABS: CALCIUM 8.7 mg/dL (8.5-10.1); CREATININE 5.3 mg/dL (0.6-1.3); POTASSIUM 4.2 mmol/L (3.5-5.1)
[2018-04-12 12:29] LABS: CALCIUM 8.3 mg/dL (8.5-10.1); POTASSIUM 3.4 mmol/L (3.5-5.1)
[2018-04-12 12:30] LABS: CREATININE 1.6 mg/dL (0.6-1.3)
[2018-04-12 23:33] LABS: HEMATOCRIT 28.1 % (37.0-47.0); HEMOGLOBIN 8.9 gm/dL (12.0-15.0); MCH 30.9 pg (26.0-34.0); MCHC 31.6 g/dL (28.0-37.0); MCV 97.7 fL (80.0-100.0); MPV 9.6 fl. (7.2-11.1); RBC 2.88 mil/uL (4.20-5.00); RDW-CV 14.7 % (10.5-14.5); WBC 15.7 thou/uL (4.0-11.0)
[2018-04-12 23:38] LABS: CALCIUM 8.7 mg/dL (8.5-10.1); CREATININE 2.4 mg/dL (0.6-1.3); POTASSIUM 3.9 mmol/L (3.5-5.1)
[2018-04-13] VITALS (14 sets, daily range): BP systolic 137–197; BP diastolic 65–118
[2018-04-13 04:43] LABS: HEMOGLOBIN 8.7 gm/dL (12.0-15.0); MCHC 32.2 g/dL (28.0-37.0); MPV 9.8 fl. (7.2-11.1); WBC 15.8 thou/uL (4.0-11.0)
[2018-04-13 04:45] LABS: HEMATOCRIT 27.1 % (37.0-47.0); MCV 96.5 fL (80.0-100.0); RBC 2.81 mil/uL (4.20-5.00); RDW-CV 14.1 % (10.5-14.5)
[2018-04-13 04:51] LABS: PROTIME 10.3 Seconds (9.20-11.50)
[2018-04-13 04:59] LABS: ALBUMIN 1.9 g/dL (3.4-5.0); CALCIUM 8.7 mg/dL (8.5-10.1); CREATININE 2.6 mg/dL (0.6-1.3); MAGNESIUM 2.1 mg/dL (1.8-2.4); PHOSPHORUS* 2.6 mg/dL (2.5-4.9); POTASSIUM 3.7 mmol/L (3.5-5.1); TOTAL BILIRUBIN 0.4 mg/dL (<0.1-1.0); TOTAL PROTEIN 6.4 g/dL (6.4-8.2)
[2018-04-13 05:40] LABS: HCO3 27.3 mmol/L (22.0-26.0); PCO2 46.4 mmHg (35.0-45.0); PO2 91.2 mmHg (75.0-100.0); pH 7.388 (7.340-7.450)
--- NOTE | 2018-04-13 10:54 | OP ---
[address] [address] OPERATIVE REPORT Name: JACIELERIN LILIAM Room: [address] IN M.R.#: [id number] Admission: 04/07/18 Attend Phys: Marshall Benito, Discharge: Date of : 59 Report #: [id number] THIS REPORT FOR: //name// CC: Marla Benito DICTATED BY: Long Wray DO DATE OF SERVICE: 04/13/2018 PREOPERATIVE DIAGNOSES: 1. Comminuted displaced right tibial plateau fracture with metaphyseal extension. 2. Osteoporosis. 3. Significant multiple medical comorbidities. POSTOPERATIVE DIAGNOSES: 1. Right comminuted, closed, displaced proximal tibia fracture with extension into the plateau. 2. Osteoporosis. 3. Multiple medical comorbidities. PROCEDURE: Right proximal tibia closed reduction and application of long leg cylindrical cast. SURGEON: Evgeny Vilchis DO ORTHOPEDIC SPECIALIST: Long Wray DO ANESTHESIA: General. ESTIMATED BLOOD LOSS: Zero with closed case. SPECIMENS: None. COMPLICATIONS: None. DISPOSITION: Stable, transferred back to the Intensive Care Unit. INDICATION FOR PROCEDURE: The patient is a 62-year-old female who has multiple medical comorbidities including end-stage renal disease, is currently on chronic dialysis; severe peripheral vascular disease; has a previous left below-knee amputation. She unfortunately sustained a fall while at dialysis this morning when attempting to get up from a wheelchair. She is mostly wheelchair bound and is a very minimal ambulator. She has a chronic ulcerative wound to her right foot. In the ER at [place], she was found to have a closed displaced [facility] [address] [place] [address] OPERATIVE REPORT Name: ERIN GRISSOM Room: [address] ADM IN [facility].#: [id number] Admission: 04/07/18 Attend Phys: Marshall Benito, Discharge: Date of : 59 Report #: [id number] comminuted proximal tibia fracture with extension into the plateau noted on CT scan. Unfortunately, she is a very poor surgical candidate as this injury likely requires ORIF as the more appropriate intervention. Shortly after admission, she unfortunately coded in the Intensive Care Unit, has extensive cardiac disease consisting of paroxysmal atrial fibrillation, ischemic cardiomyopathy. She was intubated and then ventilated for multiple days, has somewhat recovered and is now being cleared for the above-mentioned procedure by her medical team. We feel that closed reduction and casting is most appropriate treatment for this patient as she is essentially nonambulatory and very poor health status. Risks, benefits, complications, indications and alternative treatments were discussed and the patient wished to proceed with this procedure today. DESCRIPTION OF PROCEDURE: The patient was transferred directly from the ICU to the operating room. Given benefit of general anesthetic after being transferred in supine position on a standard operating room table. After being fully sedated by anesthesia, her 3-day hinged knee immobilizer was removed. Her proximal tibia fracture was examined under biplanar C-arm fluoroscopy. We were able to obtain an adequate reduction in a closed manner; therefore, we proceeded with the casting. We started with multiple rolls of Sof-Rol, provided adequate amount of padding. We performed a cylinder type cast and left the foot exposed as she has a chronic heel wound. Multiple rolls of Sof-Rol were used for adequate padding again. We then held reduction with traction in slight valgus maneuver while placing initially multiple rolls of plaster with struts on the lateral, anterior and posterior aspects, followed by multiple rolls of 4-inch fiberglass cast material. We ended up with a long leg cylindrical type cast. Had adequate reduction on both AP and lateral radiographs, confirmed by C-arm fluoroscopy taken after the cast had hardened with an adequate valgus mold and point significant traction. The patient tolerated the closed reduction and casting well. She was weaned from general anesthetic, transferred back in stable condition to the Intensive Care Unit. She will be nonweightbearing to this right lower extremity. We will continue with serial radiographs every couple of weeks and continue to follow the patient appropriately. <ELECTRONICALLY SIGNED> By: Evgeny Vilchis DO 04/13/18 1054 0821 [id number] Vilchis DO /mac
--- NOTE | 2018-04-13 15:13 | CON ---
[address] [address] CONSULTATION Name: JACIELERIN LILIAM Room: [address] IN M.R.#: [id number] Admission: 04/07/18 Attend Phys: Marshall Benito, Discharge: Date of : 59 Report #: [id number] THIS REPORT FOR: //name// CC: KYLE physician/PCP Marshall Benito DATE OF SERVICE: 04/08/2018 REQUESTING PHYSICIAN: Marshall Benito MD PRIMARY CARE PHYSICIAN: There is no PCP on record. REASON FOR CONSULTATION: Status post cardiac arrest, respiratory failure. HISTORY OF PRESENT ILLNESS: The patient is a 62-year-old female admitted with a tibial fracture while apparently transferring while completing her hemodialysis. She has a history of end-stage renal disease. She was planned for an operative procedure today, but overnight while on the Ortho Unit she was found unresponsive. Apparently, she had a shockable rhythm and this apparently was a wide complex tachycardia. She was successfully cardioverted; however, she is now intubated and currently remains hemodynamically stable. Her CT scan of the brain was unremarkable. Chest x-ray did not show evidence of congestive heart failure, cardiac troponin level is normal. She is noted to be currently in atrial fibrillation with an IVCD. It is noted that she had a prolonged QTc interval on an ECG performed on 04/07/2018 at 2:30 p.m., with a QTc of 583 milliseconds. She is on amiodarone. She has a history of an ischemic cardiomyopathy. PAST MEDICAL HISTORY: She carries a diagnosis of cardiomyopathy. There is a record of an echocardiogram performed at this hospital in July, which revealed an ejection fraction in the 40% range. She has a history of coronary artery disease, atrial arrhythmia. She had been on amiodarone apparently 100 mg daily. I do not have records from her cardiovascular care, but these have been requested. She has a history of peripheral vascular disease, status post left-sided below the knee amputation due to peripheral vascular disease. She has chronic kidney disease, end-stage renal disease, on hemodialysis; malignant hypertension. HOME MEDICATIONS: Include the following: Hydralazine 50 mg p.o. t.i.d., clonidine 0.3 mg patch, Carafate, Protonix 40 mg p.o. b.i.d., amiodarone 100 mg daily, Lantus insulin, Plavix 75 mg daily, amlodipine 10 mg daily, Reglan 10 mg daily. PAST SURGICAL HISTORY: Prior 4-vessel CABG, VENEER SORTER of lower extremities, [place] [address] CONSULTATION Name: ERIN GRISSOM Room: [address] IN [facility]#: [id number] Admission: 04/07/18 Attend Phys: Marshall Benito, Discharge: Date of : 59 Report #: [id number] knee amputation in 2015. REVIEW OF SYSTEMS: Not obtainable. The patient is intubated, but review of the Emergency Room data when she presented from a cardiovascular standpoint, she was not having chest pain or palpitations. She was not short of breath. NEUROLOGIC: She did not have syncope, it was a mechanical fall. PSYCHIATRIC: No anxiety. PHYSICAL EXAMINATION: VITAL SIGNS: Her blood pressure currently is in the 90s/50s and she is in, as noted above, atrial arrhythmia with a heart rate of 90. She has an IVCD, old. O2 sats 100% on the ventilator. HEENT: Head, there is no evidence of trauma. CARDIOVASCULAR: Irregularly irregular. I could not hear a murmur. There is no S3. LUNGS: Clear to auscultation. ABDOMEN: Soft, nontender. Bowel sounds are hypoactive. EXTREMITIES: There is post amputation on the left side. Right side is immobilized. NEUROLOGIC: Not formally tested. LABORATORY DATA: ECG as noted above demonstrates atrial fibrillation with an IVCD, heart rates in the 100s. Chest x-ray shows no acute chest pathology. ET tube is seen within the appropriate place, a dialysis catheter in the right atrium. CT scan of the brain shows no evidence of intracranial hemorrhage, mild atrophy noted. CT scan of the lower extremity reveals a comminuted displaced acute fracture through the proximal tib-fib shaft extending into the lateral tibial plateau, no evidence of dislocation, extensive soft tissue swelling. Hemoglobin is 10.6, white blood count is 28.5, platelet count is 235,000. INR is 1.2. Sodium was 130, potassium 3.5, chloride 94, CO2 was 18, BUN 21, creatinine was 3.1. Troponin I is 0.06. A1c is 10.6. Lactic acid is 1.9. ABG, 7.387, pCO2 of 33, pO2 of 149, sat 97%. IMPRESSION: 1. Wide complex tachycardia. This could have been an aberrantly conducted atrial fibrillation versus a ventricular arrhythmia. Currently, she has an IVCD with atrial fibrillation with controlled ventricular response. She had been on amiodarone and we will use this for predominant rate control as she is mildly hypotensive. 2. QTc prolongation. I am not sure if this is medicine related or another process. She also is septic. Her QTc is narrowed on today's ECG and we will need to monitor this closely. Some of her offending agents have been held [place] [address] CONSULTATION Name: ERIN GRISSOM Room: [address] ADM IN M.R.#: [id number] Admission: 04/07/18 Attend Phys: Marshall Benito, Discharge: Date of : 59 Report #: [id number] during her resuscitation and ICU stay. 3. Coronary artery disease. Her troponin level is normal and her ECG does not show an acute ST segment changes. We will check an echocardiogram to reassess left ventricular function as compared to our July study and try to obtain records. She has a history of prior 4-vessel coronary artery bypass graft. It does not appear right now that this is an acute ischemic process as a primary mechanism for her event, but if she does regain consciousness we can consider her for an evaluation with a diagnostic cardiac catheterization or stress testing. 4. Acute tib-fib fracture. This operation has been put on hold. Presently, she is not hemodynamically stable. 5. Sepsis syndrome. She is on broad spectrum antibiotics, on Zosyn and meropenem. 6. Respiratory failure, currently her x-rays are fairly clear, but we will need to monitor intake and output. 7. End-stage renal disease. She is followed by Nephrology. Critical care time 35 minutes. <ELECTRONICALLY SIGNED> By: Alexis Ramirez MD, [facility] 04/13/18 1513 1005 [id number] Ramirez MD, [facility] /nt
[2018-04-13 23:09] LABS: CALCIUM 9.2 mg/dL (8.5-10.1); CREATININE 3.5 mg/dL (0.6-1.3); POTASSIUM 3.8 mmol/L (3.5-5.1)
[2018-04-14] VITALS: BP 142/74
[2018-04-14 04:00] VITALS: BP 141/60
[2018-04-14 04:50] LABS: HEMATOCRIT 26.8 % (37.0-47.0); HEMOGLOBIN 8.6 gm/dL (12.0-15.0); MCH 31.4 pg (26.0-34.0); MCHC 32.1 g/dL (28.0-37.0); MCV 97.8 fL (80.0-100.0); MPV 9.3 fl. (7.2-11.1); RBC 2.74 mil/uL (4.20-5.00); RDW-CV 14.6 % (10.5-14.5); WBC 14.4 thou/uL (4.0-11.0)
[2018-04-14 04:56] LABS: PROTIME 10.6 Seconds (9.20-11.50)
[2018-04-14 05:01] LABS: ALBUMIN 1.8 g/dL (3.4-5.0); CALCIUM 8.8 mg/dL (8.5-10.1); CREATININE 3.7 mg/dL (0.6-1.3); DIRECT BILIRUBIN 0.1 mg/dL (<0.1-0.3); MAGNESIUM 2.1 mg/dL (1.8-2.4); POTASSIUM 3.8 mmol/L (3.5-5.1); TOTAL BILIRUBIN 0.4 mg/dL (<0.1-1.0); TOTAL PROTEIN 5.8 g/dL (6.4-8.2)
[2018-04-14 07:30] VITALS: BP 158/75
[2018-04-14 11:49] VITALS: BP 164/80
[2018-04-14 20:00] VITALS: BP 126/64
[2018-04-15] VITALS: BP 136/66
[2018-04-15 04:00] VITALS: BP 116/62
[2018-04-15 05:00] LABS: HEMATOCRIT 25.9 % (37.0-47.0); HEMOGLOBIN 8.4 gm/dL (12.0-15.0); MCH 31.6 pg (26.0-34.0); MCHC 32.4 g/dL (28.0-37.0); MCV 97.8 fL (80.0-100.0); MPV 8.9 fl. (7.2-11.1); RBC 2.65 mil/uL (4.20-5.00); RDW-CV 14.2 % (10.5-14.5); WBC 14.7 thou/uL (4.0-11.0)
[2018-04-15 05:14] LABS: CALCIUM 8.5 mg/dL (8.5-10.1)
[2018-04-15 05:50] LABS: CREATININE 2.3 mg/dL (0.6-1.3)
[2018-04-15 07:20] VITALS: BP 133/65
[2018-04-15 12:00] VITALS: BP 139/68
[2018-04-15 15:45] VITALS: BP 136/59
[2018-04-15 20:00] VITALS: BP 119/56
[2018-04-16] VITALS: BP 140/60
[2018-04-16 04:00] VITALS: BP 149/71
[2018-04-16 08:00] VITALS: BP 163/71
[2018-04-16 12:08] VITALS: BP 156/72
[2018-04-16 16:07] VITALS: BP 183/75
[2018-04-16 20:00] VITALS: BP 142/73
[2018-04-17] VITALS: BP 121/61
[2018-04-17 04:00] VITALS: BP 129/62
[2018-04-17 08:00] VITALS: BP 115/67
[2018-04-17] MEDS ORDERED: AMOX TR-K CLV1 EAC3 PO (10:15)
[2018-04-17] MEDS ORDERED: IMDUR 30 MG TAB30 M1 PO (10:18)
[2018-04-17] MEDS ORDERED: COZAAR 50 MG TA50 M1 PO (10:18)
[2018-04-17] MEDS ORDERED: ATORVASTATIN CA40 MG PO (10:19)
[2018-04-17 12:35] VITALS: BP 135/66
[2018-04-17 12:53] VITALS: BP 135/66
[2018-04-17 16:58] VITALS: BP 135/66
--- NOTE | 2018-04-17 17:01 | EKG ---
[place] [address] ELECTROCARDIOGRAM REPORT Name: JACIELERIN LILIAM Room: [address] ADM IN M.R.#: [id number] Admission: 04/07/18 Attend Phys: Marshall Benito, Discharge: Date of : 59 Report #: [id number] THIS REPORT FOR: //name// [facility] Test Date: 2018-04-16 Test Time: 08:55:10 Pat Name: ERIN GRISSOM Department: Room: [address] Gender: F Fibreglass Gun Hand: NAYELI : 1955 Requested By: James Cerda Order Number: [id number] Reading MD: Curt Starr Measurements Intervals [place] Rate: 96 P: GA: QRS: 91 QRSD: 106 T: -9 QT: 434 QTc: 549 Interpretive Statements Atrial fibrillation Right axis deviation Anteroseptal infarct, old possible Borderline T abnormalities, inferior leads Prolonged QT interval Electronically Signed On 04-17-2018 17:01:08 CDT by Curt Starr [email or web address] <ELECTRONICALLY SIGNED> By: Curt Starr MD, [facility] 04/17/18 1701 Curt Starr MD, FAC /EPI
--- NOTE | 2018-04-27 19:14 | EEG ---
[address] [address] EEG STUDY REPORT Name: ERIN GRISSOM Room: [address] IN M.R.#: [id number] Admission: 04/07/18 Attend Phys: Marshall Benito, Discharge: 04/17/18 Date of : 59 Report #: [id number] THIS REPORT FOR: //name// CC: Marla Benito DATE OF SERVICE: 04/10/2018 This patient is being evaluated for altered mental status. EEG was done by placing the electrodes by standard 10-20 system of electrode placement. Both referential and sequential montages were used for recording. The patient's EEG has significant amount of artifact making the interpretation of the EEG difficult. Background activity does appear to be about 7 Hz and 30 microvolts. Photic stimulation is unremarkable. IMPRESSION: This is a difficult EEG to interpret because it is intermixed with a lot of artifact. If clinically indicated, the patient's EEG should be repeated after giving the patient paralyzing agent. EEG is abnormal and will be consistent with encephalopathy. However, well-defined cortical activity is present and no active epileptiform activity is present. Thank you very much for this referral. <ELECTRONICALLY SIGNED> By: Omar Dia MD 04/27/18 1914 1615 1634Pelan Dia MD /mac
== END 2018-04-17 17:42 | DRG 871 ==
LOC: M.ERS 13:34 → M.TBA-ER 14:23 → M.ICU 14:23 → M.ORTHSURG 15:50 → M.ICU 04-08 00:02 → M.2W 04-13 12:00
PROVIDERS: Internal Medicine; Internal Medicine Nephrology; Internal Medicine Pulmonary Disease; Nurse Practitioner Family; Orthopaedic Surgery; ADMIT Family Medicine
PROC: 05HY33Z Insertion of Infusion Device into Upper Vein, Percutaneous Approach (ICD-10-PCS; principal; 2018-04-08)
PROC: 0BH17EZ Insertion of Endotracheal Airway into Trachea, Via Natural or Artificial Opening (ICD-10-PCS; principal; 2018-04-08)
PROC: 5A1945Z Respiratory Ventilation, 24-96 Consecutive Hours (ICD-10-PCS; principal; 2018-04-08)
PROC: B54MZZZ Ultrasonography of Right Upper Extremity Veins (ICD-10-PCS; principal; 2018-04-08)
PROC: 5A1D70Z Performance of Urinary Filtration, Intermittent, Less than 6 Hours Per Day (ICD-10-PCS; 2018-04-10)
PROC: 5A1D70Z Performance of Urinary Filtration, Intermittent, Less than 6 Hours Per Day (ICD-10-PCS; 2018-04-12)
PROC: 2W3QX1Z Immobilization of Right Lower Leg using Splint (ICD-10-PCS; 2018-04-13)
PROC: 0QSGXZZ Reposition Right Tibia, External Approach (ICD-10-PCS; 2018-04-13)
PROC: 5A1D70Z Performance of Urinary Filtration, Intermittent, Less than 6 Hours Per Day (ICD-10-PCS; 2018-04-14)
PROC: 5A1D70Z Performance of Urinary Filtration, Intermittent, Less than 6 Hours Per Day (ICD-10-PCS; 2018-04-17)
DX: A41.9 Sepsis, unspecified organism (principal); J96.01 Acute respiratory failure with hypoxia; N18.6 End stage renal disease; I46.9 Cardiac arrest, cause unspecified; G92 Toxic encephalopathy; J15.6 Pneumonia due to other Gram-negative bacteria; S82.251A Displaced comminuted fracture of shaft of right tibia, initial encounter for closed fracture; N39.0 Urinary tract infection, site not specified; I12.0 Hypertensive chronic kidney disease with stage 5 chronic kidney disease or end stage renal disease; I13.2 Hypertensive heart and chronic kidney disease with heart failure and with stage 5 chronic kidney disease, or end stage renal disease; I50.32 Chronic diastolic (congestive) heart failure; M86.68 Other chronic osteomyelitis, other site; M31.9 Necrotizing vasculopathy, unspecified; L97.518 Non-pressure chronic ulcer of other part of right foot with other specified severity; J98.11 Atelectasis; E87.1 Hypo-osmolality and hyponatremia; I25.10 Atherosclerotic heart disease of native coronary artery without angina pectoris; H54.61 Unqualified visual loss, right eye, normal vision left eye; F32.9 Major depressive disorder, single episode, unspecified; E11.22 Type 2 diabetes mellitus with diabetic chronic kidney disease; K21.9 Gastro-esophageal reflux disease without esophagitis; D63.1 Anemia in chronic kidney disease; I99.8 Other disorder of circulatory system; B96.20 Unspecified Escherichia coli [E. coli] as the cause of diseases classified elsewhere; E83.41 Hypermagnesemia; I48.0 Paroxysmal atrial fibrillation; I25.5 Ischemic cardiomyopathy; E78.5 Hyperlipidemia, unspecified; M81.0 Age-related osteoporosis without current pathological fracture; S82.401A Unspecified fracture of shaft of right fibula, initial encounter for closed fracture; I45.81 Long QT syndrome; E11.42 Type 2 diabetes mellitus with diabetic polyneuropathy; W07.XXXA Fall from chair, initial encounter; Y92.238 Other place in hospital as the place of occurrence of the external cause; Z79.4 Long term (current) use of insulin; Z99.2 Dependence on renal dialysis; Z79.01 Long term (current) use of anticoagulants; Z79.2 Long term (current) use of antibiotics; Z79.82 Long term (current) use of aspirin; Z79.899 Other long term (current) drug therapy; Z89.512 Acquired absence of left leg below knee; Z95.1 Presence of aortocoronary bypass graft; Z82.49 Family history of ischemic heart disease and other diseases of the circulatory system; Z80.9 Family history of malignant neoplasm, unspecified

== ENCOUNTER 2018-05-15 13:12 | Inpatient (IN) | payer OTHER, MEDICAID ==
[~2018-05-15] VITALS: Ht 162.6 cm; Wt 59.9 kg
[~2018-05-15 13:12] MED LIST changes: +AMOX TR-K CLV1 EAC3 PO; +COZAAR 50 MG TA50 M1 PO; +IMDUR 30 MG TAB30 M1 PO
[2018-05-15 13:17] VITALS: BP 217/88
[2018-05-15 14:07] LABS: HEMATOCRIT 31.3 % (37.0-47.0); MCH 30.1 pg (26.0-34.0); MCV 94.1 fL (80.0-100.0); MPV 9.1 fl. (7.2-11.1); NUCLEATED RBCS 0 /100WBC; PLATELET COUNT* 397 thou/uL (150-400); RBC 3.32 mil/uL (4.20-5.00); RDW-CV 17.7 % (10.5-14.5); WBC 11.8 thou/uL (4.0-11.0)
[2018-05-15 14:12] LABS: ANION GAP 12 mmol/L (7-16); BUN 19 mg/dL (7-18); CALCIUM 8.7 mg/dL (8.5-10.1); CHLORIDE 98 mmol/L (98-107); CO2 26 mmol/L (21-32); CREATININE 3.4 mg/dL (0.6-1.3); GLUCOSE 167 mg/dL (70-99); POTASSIUM 4.9 mmol/L (3.5-5.1); SODIUM 136 mmol/L (136-145)
[2018-05-15 14:13] LABS: APTT 27.6 Seconds (25.0-31.3); INR 1.1
[2018-05-15 14:19] LABS: ALBUMIN 2.6 g/dL (3.4-5.0); ALKALINE PHOSPHATASE 310 U/L (46-116); LIPASE 115 U/L (73-393); SGOT 10 U/L (15-37); SGPT 9 U/L (30-65); TOTAL BILIRUBIN 0.5 mg/dL (<0.1-1.0); TOTAL PROTEIN 7.2 g/dL (6.4-8.2); TROPONIN-I LEVEL <0.06 ng/mL (<0.06)
[2018-05-15 14:26] LABS: ABSOLUTE EOSINOPHILS 0.1 thou/uL (0.0-0.7); ABSOLUTE LYMPHOCYTES 0.7 thou/uL (0.8-5.3); ABSOLUTE MONOCYTES 0.4 thou/uL (0.0-1.2); ABSOLUTE NEUTROPHILS 10.6 thou/uL (1.6-8.1); ANISOCYTOSIS 1+; PLATELET ESTIMATE ADEQUATE
[2018-05-15 15:58] LABS: INFLUENZA A ANTIGEN None Detected (None Detect); INFLUENZA B ANTIGEN None Detected (None Detect)
[2018-05-15 16:00] VITALS: BP 135/66
[2018-05-15 16:26] VITALS: BP 193/77
--- NOTE | 2018-05-15 16:31 | EKG ---
[place] [address] ELECTROCARDIOGRAM REPORT Name: ERIN GRISSOM Room: [place] [address] ADM IN .R.#: [id number] Admission: 05/15/18 Attend Phys: Kyle Abbasi Discharge: Date of : 59 Report #: [id number] THIS REPORT FOR: //name// [facility] ED Test Date: 2018-05-15 Test Time: 14:07:27 Pat Name: ERIN GRISSOM Department: Room: [facility] Gender: F Radioisotope Technician: Carmen PRINCE : 1955 Requested By: Alyssia Wilkinson Order Number: [id number] MD: Alexis Ramirez Measurements Intervals [place] Rate: 63 P: 32 MT: 200 QRS: 48 QRSD: 97 T: 51 QT: 509 QTc: 522 Interpretive Statements Sinus rhythm Abnormal lateral Q waves Anterior infarct, old Prolonged QT interval Compared to ECG 04/16/2018 08:55:10 Q waves now present Atrial fibrillation no longer present Right-axis deviation no longer present T-wave abnormality no longer present Myocardial infarct finding still present Electronically Signed On 05-15-2018 16:31:22 DEVELOPMENT PROFESSIONAL by Alexis Ramirez [email or web address] <ELECTRONICALLY SIGNED> By: Alexis Ramirez MD, [facility] 05/15/18 1631 1407 140 Alexis Ramirez MD, FAC /EPI
[2018-05-15 17:00] VITALS: BP 135/66
--- NOTE | 2018-05-15 18:24 | NUR ---
PATIENT ADMITTED TO ROOM 316 FROM ER. ALERT AND ORIENTED X 4. SON AT BEDSIDE. CAST NOTED TO RIGHT LEG, WOUND PHOTOS TAKEN. SACRAL WOUND NOTED AND PHOTO TAKEN. DRESSINGS PLACED TO WOUNDS AND WOUND CONS PLACED. PATIENT DIALYSIS T-TH-S, NEPH CONS. IV SL, SCHED VANC GIVEN IN ER. ACCUCHECK. FALL RISK PROTOCOL IN PLACE. ORIENTED TO CALL LIGHT, CALL LIGHT WITHIN REACH WILL CONTINUE TO MONITOR.
[2018-05-15 21:00] VITALS: BP 191/64
[2018-05-16 04:09] VITALS: BP 161/52
--- NOTE | 2018-05-16 07:34 | NUR ---
PATIENT SLEPT MOST OF THE NIGHT. IV REMAINS SALINE LOCKED. PATIENT HAD A SMALL HARD BOWEL MOVEMENT WAS IN THERE CRYING SAID IT HURT TO POOP. DR KWAN ORDERED MIRALAX. PAIN MEDICINE WAS GIVEN TWICE THIS SHIFT. ORTHO RESIDENT CAME AND CUT HER CAST OFF THIS MORNING AND PLACED IT WITH A HINGE BRACE. WILL CONTINUE TO MONITOR.
[2018-05-16 07:50] VITALS: BP 158/59
--- NOTE | 2018-05-16 11:23 | NUR ---
SW met with pt to complete initial assessment, introduce self and SW role. Pt alert, oriented, known to CM from previous hospital admissions. Pt has hx of SNF at [facility]; most recently dc from [facility] to [facility] on 04/16. Pt was home from SNF prior to hospitalization. Pt lives at home with her son. Pt has other family support as well. Pt in dialysis at [facility]. Pt has needed DME at home already. SW to continue to follow to assist with safe dc planning.
[2018-05-16 16:34] VITALS: BP 154/60
--- NOTE | 2018-05-16 16:35 | NUR ---
PATIENT SEEN BY WOUND CARE THIS AFTERNOON. DRESSINGS CHANGED TO RIGHT LEG AND SACRUM PER WOUND CARE. TURNED Q2. IV ABX INFUSED ORDERED. PATIENT TO STRAIGHT CATH THIS EVENING FOR UA, PATIENT VOIDING ONLY SMALL DROPS. PATIENT CONTINUES TO HAVE SMALL HARD STOOLS, MIRALAZ GIVEN THIS AM. NO INSULIN REQUIRED THIS SHIFT. BRACE TO RIGHT LEG 0 DEGREES FLEXION AND EXTENSION PER ORTHO, RIGHT LEG XRAY THIS AM.
--- NOTE | 2018-05-16 17:27 | NUR ---
WOUND NURSE: PATIENT SEEN FOR WOUND ASSESSMENT PERTAINING TO LESIONS ON RIGHT LOWER LEG AND FOOT AND ON SACRAL-COCCYGEAL AREA. RIGHT 3RD TOE PRESENTS A RECENTLY HEALED WOUND WITH INTACT DULL RED EPITHELIAL TISSUE IN PLACE AND NO DRAINAGE. PLAN TO KEEP GEOFF. RIGHT HEEL HAS A STABLE ESCHAR IN PLACE MEASURING 0.8 X 1.0 CM. 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 HAS UNSTAGEABLE DIABETIC FOOT ULCER ON ACHILLES TENDON AREA MEASURING 2.0 X 2.5 CM AND CONTAINS YELLOW SLOUGH IN 100% OF THE WOUND BED. THERE IS A SECOND OPEN DFU ON THE MEDIAL MALLEOLUS MEASURING 1.0 X 2.0 CM AND ALSO CONTAINS 100% YELLOW SLOUGH IN THE WOUND BED. THERE IS SMALL YELLOW DRAINAGE NOTED AT TIME OF THIS ASSESSMENT. THE LEG IS IN A SOFT SPLINT D/T DELAYED HEALING FX. OPEN WOUNDS WERE TREATED WITH SOAP AND WATER, RINSED WITH WATER, THEN PATTED DRY. APPLIED AQUACEL AG UDNER ABD, THEN WRAPPED WITH KERLEX ROLL GAUZE AND REPLACED SPLINT. PATIENT HAS A LARGE SHALLOW LESION ON THE SACRAL AREA WHICH HAS 2 WOUND OPENINGS AND MEASURES 6.0 X 5.0 CN AND CONTAINS 100% YELLOW SLOUGH IN THE WOUND BED AND MODERATE AMOUNT OF YELLOW DRAINAGE. CLEANSED WITH SOAP AND WATER, RINSED WITH WATER, THEN PATTED DRY. APPLIED SKIN PREP TO INTACT PERIWOUND TISSUE, THEN COVERED WITH AQUACEL AG UNDER EXUDERM, THEN SECURED IN PLACE WITH TRANSPARENT DRAPE. THIS WAS TOLERATED WELL BY THE PATIENT WITHOUT COMPLAINTS OF PAIN VOICED. PATIENT INSTRUCTED ON THE IMPORTANCE OF REPOSITIONING SIDE TO SIDE TO OFFLOAD SACRAL WOUND. STATED SHE UNDERSTOOD. STAFF TO MONITOR SKIN UNDERNEATH THE SPLINT FOR ANY SIGNS OF PRESSURE EACH SHIFT.
[2018-05-16 19:43] LABS: URINE BILIRUBIN NEGATIVE (Negative); URINE BLOOD 1+ (Negative); URINE COLOR YELLOW; URINE GLUCOSE-RANDOM NEGATIVE (Negative); URINE KETONES NEGATIVE (Negative); URINE NITRITE-REFLEX NEGATIVE (Negative); URINE PROTEIN 2+ (Negative); URINE UROBILINOGEN 0.2 E.U./dl (0.2-1.0)
[2018-05-16 19:44] LABS: URINE CLARITY CLOUDY; URINE LEUKOCYTES-REFLEX 3+ (Negative)
[2018-05-16 19:46] LABS: SQUAMOUS 0-3 Few /LPF (0-3)
[2018-05-16 19:47] LABS: BACTERIA-REFLEX >30 Many /HPF (None Seen); CASTS None Seen /LPF (None Seen); CRYSTALS None Seen /LPF (None Seen); URINE RBC 0-2 Rare /HPF (0-2); URINE WBC-REFLEX >25 Many /HPF (0-5)
[2018-05-17 03:56] LABS: ABSOLUTE EOSINOPHILS 0.2 thou/uL (0.0-0.7); ABSOLUTE LYMPHOCYTES 2.4 thou/uL (0.8-5.3); ABSOLUTE MONOCYTES 1.1 thou/uL (0.0-1.2); ABSOLUTE NEUTROPHILS 6.3 thou/uL (1.6-8.1); BASOPHILS 0.5 %; EOSINOPHILS 2.4 %; HEMATOCRIT 29.9 % (37.0-47.0); HEMOGLOBIN 9.6 gm/dL (12.0-15.0); LYMPHOCYTES 24.2 %; MCH 30.4 pg (26.0-34.0); MONOCYTES 10.5 %; MPV 8.7 fl. (7.2-11.1); NUCLEATED RBCS 0 /100WBC; PLATELET COUNT* 364 thou/uL (150-400); POLYS 62.4 %; RBC 3.14 mil/uL (4.20-5.00); RDW-CV 17.7 % (10.5-14.5); WBC 10.1 thou/uL (4.0-11.0)
[2018-05-17 04:28] LABS: ALBUMIN 2.2 g/dL (3.4-5.0); CALCIUM 8.5 mg/dL (8.5-10.1); PHOSPHORUS* 3.3 mg/dL (2.5-4.9)
[2018-05-17 04:35] LABS: CREATININE 5.1 mg/dL (0.6-1.3)
[2018-05-17 04:36] LABS: POTASSIUM 6.8 mmol/L (3.5-5.1)
--- NOTE | 2018-05-17 07:03 | NUR ---
PATIENT SLEPT MOST OF THE NIGHT. PATIENT WAS GIVEN PAIN MEDICINE ONCE THIS SHIFT. MULTIPLE DRESSINGS REMAIN INTACT. WILL CONTINUE TO MONITOR.
[2018-05-17 08:54] VITALS: BP 181/49
--- NOTE | 2018-05-17 09:53 | CON ---
[address] [address] CONSULTATION Name: ERIN GRISSOM Room: [address] IN M.R.#: [id number] Admission: 05/15/18 Attend Phys: Kyle Abbasi Discharge: Date of : 59 Report #: [id number] THIS REPORT FOR: //name// CC: KYLE physician/PCP Agustin Garcia CONSULTING PHYSICIAN: Agustin Garcia DO REASON FOR CONSULTATION: End-stage kidney disease. HISTORY OF PRESENT ILLNESS: A 62-year-old female who is on dialysis Monday, and Monday, had her last dialysis Monday, admitted with right foot cellulitis, started on antibiotics with Wound Care and Orthopedic evaluation as well as Infectious Disease. Presently has no complaints. REVIEW OF SYSTEMS: Constitutional, psych, heme, eyes, ENT, respiratory, cardiac, GI, , endocrine, all negative except as documented above. PAST MEDICAL HISTORY: End-stage kidney disease, on hemodialysis; hypertension, diabetes type 1, blind in her right eye, peripheral vascular disease with history of stenting in the lower extremities, coronary artery disease with history of 4-vessel CABG, hysterectomy, depression, history of diastolic heart failure, AFib, history of hip fracture, history of left BKA in 2016. SOCIAL HISTORY: No tobacco. FAMILY HISTORY: Not pertinent. CURRENT MEDICATIONS: Reviewed. PHYSICAL EXAMINATION: VITAL SIGNS: Blood pressure is 158/59, pulse 54, temperature 36.7. GENERAL: In no acute distress. EYES: Open. EARS: Externally normal. CARDIOVASCULAR: Regular rate. LUNGS: Clear to auscultation. ABDOMEN: Soft. MUSCULOSKELETAL: Nontender. PSYCHIATRIC: Awake, alert. LABORATORY DATA: White cell count 11.8, hemoglobin 10, platelets 397. ASSESSMENT: 1. End-stage kidney disease, hemodialysis Monday, and Monday at the [facility] D[facility]. 2. [place] [address] CONSULTATION Name: ERIN GRISSOM Room: [address] IN ..#: [id number] Admission: 05/15/18 Attend Phys: Kyle Abbasi Discharge: Date of : 59 Report #: [id number] 3. Secondary hyperparathyroidism, on calcium acetate. 4. Insulin-dependent diabetes. PLAN: 1. We will follow for dialysis needs. No acute indications for dialysis today. We will plan dialysis tomorrow. 2. Continue phosphate binder. We will check phosphorus with morning lab. 3. Renal vitamin. 4. Check lab again in the a.m. Thank you for requesting my opinion in the care and management of this patient. <ELECTRONICALLY SIGNED> By: Latoya Wyatt MD 05/17/18 0953 1124 [id number] Aida Wyatt MD /nt
--- NOTE | 2018-05-17 12:31 | CON ---
[address] [address] CONSULTATION Name: JACIELERIN RICKETTS Room: [address] IN M.R.#: [id number] Admission: 05/15/18 Attend Phys: Kyle Abbasi Discharge: Date of : 59 Report #: [id number] THIS REPORT FOR: //name// CC: KLYE physician/PCP Agustin Garcia DATE OF SERVICE: 05/16/2018 INFECTIOUS DISEASE CONSULTATION ATTENDING PHYSICIAN: Agustin Garcia DO. REASON FOR EVALUATION: Distal right lower extremity skin and soft tissue infection with cellulitis, superficial ulcerations. HISTORY OF PRESENT ILLNESS: Chart reviewed, the patient examined. This 62-year-old, well known to myself, has diabetes mellitus complicated by vasculopathy and end-stage renal disease, on dialysis, who was admitted roughly 5-6 weeks ago with diagnosis of right leg fracture and underwent operative repair. It was delayed due to some sepsis. [facility] and discharged to home about a week ago. She was at dialysis, noting severe right leg pain and has nausea with emesis as well. It is not clear if she had any diarrhea and underwent including evaluation and had a radiography, which showed proximal tibia and fibular fractures that were unchanged. There was minimal callus formation with delayed healing. Blood cultures were sterile thus far. Superficial culture of the wound in progress. Gram stain did show gram-positive cocci. She was started on vancomycin. Presently, she is arousable. She is in iswm-lh-edocpinc distress. She is generally lucid, which is somewhat unusual of her. During her previous presentations she was quite encephalopathic. She has not had recorded temperature elevation. ALLERGIES: None known. MEDICATIONS: Vancomycin daily, folic acid, allopurinol, cyanocobalamin, metoclopramide, citalopram, losartan, amlodipine, isosorbide mononitrate, amiodarone, clopidogrel, sucralfate, insulin, pantoprazole, trazodone, aspirin, spironolactone, atorvastatin, hydrocodone and ondansetron. PAST MEDICAL HISTORY: As noted above, diabetes mellitus with severe sequelae and diffuse vasculopathy, known coronary artery disease and peripheral vascular disease. She has diabetic retinopathy, hypertension, end-stage renal disease, left below-knee amputation, history of depression and gastroparesis. SOCIAL HISTORY: Nonsmoker, [place] [address] CONSULTATION Name: ERIN GRISSOM Room: [address] IN [facility]#: [id number] Admission: 05/15/18 Attend Phys: Kyle Abbasi Discharge: Date of : 59 Report #: [id number] FAMILY HISTORY: Noncontributory. REVIEW OF SYSTEMS: Unremarkable 10-point review of systems, with the exception of the above. Denies any significant pulmonary or gastrointestinal-related complaints. PHYSICAL EXAMINATION: GENERAL: She is chronically ill, undernourished. She is actually fairly well oriented, in mzfh-zy-qjgpsdpx distress. VITAL SIGNS: Temperature 98.8, pulse 48, respirations 18 and blood pressure 154/60. SKIN: Warm, dry. No rashes. HEENT: Otherwise, unremarkable. No conjunctivitis. No oral lesions. NECK: Supple. LUNGS: Diminished breath sounds. Few scattered crackles at the bases. HEART: Bradycardic. I do not appreciate a murmur. ABDOMEN: Soft, nontender. There are no peritoneal signs. EXTREMITIES: There is an immobilizing brace on the right lower extremity, has BKA on the left. Distally, it is warm. It is not overtly tender. GENITOURINARY: Deferred. RECTAL: Deferred. LABORATORY DATA: Urinalysis greater than 25 white cells, greater than 30 bacteria. Wound culture showed gram-positive cocci, no white cells seen on Gram stain, culture pending. The x-ray is as described above. Blood cultures sterile thus far. Prealbumin is 17.9. Influenza antigen was negative. CBC: White count of 11.8, H and H 10.0 and 31.3 and platelets of 397,000. Electrolytes: Sodium 136, potassium 4.9, chloride 98, bicarbonate 26, anion gap of 12, BUN and creatinine 19 and 3.4 and glucose of 167. LFTs unremarkable, with the exception of alkaline phosphatase of 310. Albumin 2.6. Total protein 7.2. PT 11.0 and INR 1.1. Lactic acid 1.1. Chest x-ray, no acute process, mild cardiomegaly. ASSESSMENT AND PLAN: Severe right leg pain, post complicated fracture some 5 weeks ago and has developed some ulcers and then laboratory eruption associated with the distal site. We will continue the vancomycin, gram stain suggests perhaps a staph or strep etiology. Also noted have significant pyuria and did have some Escherichia coli previously that was generally susceptible. We will give single dose of cefepime this evening. Await those results. <ELECTRONICALLY SIGNED> By: Raymundo Sinclair MD 05/17/18 1231 2146 [id number] Sinclair MD /nt
[2018-05-17 16:43] VITALS: BP 180/112
[2018-05-17 20:00] VITALS: BP 144/56
--- NOTE | 2018-05-18 05:21 | NUR ---
PT SLEPT MOST OF SHIFT. ASSESSMENT DOCUMENTED. MEDS GIVEN PER E-AUG. IV PATENT. PAIN MEDS GIVEN WITH RELIEF. PT REPOSITIONED THIS SHIFT. NO REPORTS OF NAUSEA. DRESSINGS C/D/I. WILL CONTINUE WITH PLAN OF CARE.
[2018-05-18 08:00] VITALS: BP 128/70
[2018-05-18 16:05] VITALS: BP 152/81
--- NOTE | 2018-05-18 16:28 | NUR ---
SHIFT NOTE - PT PLACED IN ISOLATION THIS SHIFT FOR MRSA IN WOUND. [facility]ED. FAMILY PRESENT AT BEDSIDE THIS SHIFT. WILL CONTINUE TO MONITOR.
[2018-05-19 00:04] VITALS: BP 153/56
--- NOTE | 2018-05-19 06:01 | NUR ---
ASSESSMENT COMPLETE. PT SLEPT THROUGH THE NIGHT WITHOUT ANY CONCERNS. PT IS ALERT AND ORIENTED X4. PAIN MEDICATION GIVEN ONCE NEEDED. DRESSING TO RIGHT LEG INTACT, BRACE IN PLACE. PT TAKES MEDS WITH APPLESAUCE. PT IS ACCU CHECK. Q2 TURN FOR SKIN INTEGRITY. WOUNDS DOCUMENTED. PT IS IN ISOLATION FOR MRSA TO RIGHT FOOT WOUND. PT IS ON ROOM AIR WITH ADEQAUTE SATS. PT USES BEDPAN NEEDED. IV IN LEFT AC, SALINE LOCKED. PT HAS TEMP DIALYSIS ACCESS TO RIGHT CHEST. TESIO CATH IN RIGHT ARM, LIMB ALERT BAND ON. PT IS SLEEPING AT THIS TIME. SEE ASSESSMENT AND VITALS FOR OTHER DETAILS. CALL LIGHT WITHIN REACH. BED ALARM ON. WILL CONTINUE PLAN OF CARE
[2018-05-19 08:45] VITALS: BP 192/71
[2018-05-19 16:00] VITALS: BP 120/51
--- NOTE | 2018-05-19 16:34 | NUR ---
PATIENT HAD DIALYSIS THIS AM, 2L REMOVED. TURNED Q2. DRESSING TO COCCYX AND RIGHT LOWER EXTREMITY CHANGED PER PROTOCOL, RIGHT LEG BRACE REMOVED AND SKIN CHECKED AND LOTION APPLIED. IV REMAINS SL, PO ABX. PATIENT UPSET THIS AM WHEN NURSE WENT TO ASSESS PATIENT, PATIENT STATED SHE HAD NOT VOIDED SINCE YESTERDAY. BLADDER SCAN READING >999MLS. DR. CAMPOVERDE NOTIFIED AND MORTENSEN CATH PLACED AND UROLOGY CONS.
[2018-05-19 20:00] VITALS: BP 140/56
--- NOTE | 2018-05-20 04:42 | NUR ---
ASSUMED PT CARE REPORT RECEIVED FROM NURSE. PT IS AOX4, ON RA AND SATURATION IN ABOVE 95%. COMPLAIN OF PAIN IN RIGHT LEG. PAIN PILL GIVEN. Q2TURN PERFORMED. NO BM NOTED. MORTENSEN IN PLACE. SKIN ASSESSMENT PERFORMED ON RIGH LOWER EDXTREMITY. CASQUE REMOVED. NO PRESSURE POINT NOTED. INSULIN GIVEN. SNACK PROVIDED. CALL LIGHT AT REACH. FALL PRECAUTION IN PLACE. WILL CONTINUE TO MONITOR.
[2018-05-20 08:00] VITALS: BP 165/58
[2018-05-20 16:00] VITALS: BP 120/43
--- NOTE | 2018-05-20 16:43 | NUR ---
PATIENT UP TO CHAIR THIS AM. DRESSINGS TO RIGHT LEG CHANGED PER PROTOCOL AND PHOTOS TAKEN. IV REMAINS SL. PRN VICODIN GIVEN X 1 THIS SHIFT. INSULIN GIVEN WITH MEALS WHEN REQUIRED. TURNED Q2. MORTENSEN REMAINS IN PLACE, DRAINING YELLOW URINE.
--- NOTE | 2018-05-21 06:32 | NUR ---
ASSESSMENT COMPLETE. PT SLEPT THROUGH THE NIGHT WITHOUT ANY CONCERNS. PRN PAIN MEDICATION GIVEN ONCE AT HS. PT DENIES N/V. Q2 TURN FOR SKIN INTEGRITY. PT IS ON ROOM AIR WITH ADEQAUTE SATS, VITALS STABLE. PT TAKES MEDS WITH APPLESAUCE. ISOLATION FOR MRSA OF FOOT WOUND. SEE ASSESSMENT AND VITALS FOR OTHER DETAILS. CALL LIGHT WTHIN REACH, WILL CONTINUE PLAN OF CARE
[2018-05-21 08:50] VITALS: BP 190/59
--- NOTE | 2018-05-21 09:59 | NUR ---
RECEIVED CONSULT FOR POSSIBLE REHAB ADMISSION. CONSULT HAS BEEN ACKNOWLEDGED BY DESPATCHING AND RECEIVING CLERK AND DR. LÓPEZ. PATIENT ADMITTED WITH CELLULITIS AND RIGHT TIB/FIB FX AND IS NWB ON RLE. PATIENT ALSO HAS A PREVIOUS LEFT BKA AND NO LONGER WHERES HER PROSTHESIS SO SHE IS NWB ON LEFT LE WELL. SHE IS W/C LEVEL AT BASELINE AND DEPENDENT FOR TRANSFERS, FAMILY ASSISTS WITH ALL CARES. PATIENT ON HEMODIALYSIS 3XW. PATIENT NOT ABLE TO TOLERATE 3 HOURS OF THERAPY AT THIS TIME AND DOES NOT QUALIFY FOR ACUTE REHAB. WOULD BENEFIT FROM [facility] FOR CONTINUED THERAPIES FOR STRENGTHENING, WOUND CARE AND HEALING. THANK YOU FOR THIS REFERRAL.
--- NOTE | 2018-05-21 10:32 | NUR ---
CHARI called [facility] and left a message for Nivia in admissions to discuss possibility for pt to dc to SNF today. CHARI faxed referral to pt preference of [facility] and will continue to follow to assist with finalizing safe dc plan.
[2018-05-21] MEDS ORDERED: DOXYCYCLINE 10100 MG PO (13:29)
[2018-05-21 13:36] VITALS: BP 190/59
[2018-05-21 15:29] VITALS: BP 159/52
--- NOTE | 2018-05-21 15:49 | NUR ---
DR. CAMPOVERDE NOTIFIED THIS AM THAT PATIENT VOMITTED THIS AM WHILE EATING BREAKFAST AND TAKING AM MEDS. PATIENT STATED SHE THOUGHT THE DOXYCYCLINE MADE HER SICK WHILE SWALLOWING IT. NO MED CHANGES AT THIS TIME. WOUND PHOTOS TAKEN AND DRESSINGS CHANGED PER PROTOCOL. BP ELEVATED THIS AFTERNOON, ONE TIME DOSE NORVASC GIVEN PER ORDERS AND BP NOW CHARTED. MORTENSEN TO REMAIN IN PLACE, PATIENT TO START STRAIGHT CATHING ON MONDAY. PATIENT DISCHARGED TO THE [facility], REPORT CALLED TO [place]. [facility] DC'D. PATIENT LEFT VIA WHEELCHAIR VAN.
== END 2018-05-21 15:55 | DRG 602 ==
LOC: M.ERS 13:12 → M.TBA-ER 15:22 → M.3W 15:22
PROVIDERS: Internal Medicine Nephrology; Nurse Practitioner Family; ADMIT Internal Medicine
PROC: 5A1D70Z Performance of Urinary Filtration, Intermittent, Less than 6 Hours Per Day (ICD-10-PCS; principal; 2018-05-17)
DX: L03.115 Cellulitis of right lower limb (principal); N18.6 End stage renal disease; I50.32 Chronic diastolic (congestive) heart failure; I13.2 Hypertensive heart and chronic kidney disease with heart failure and with stage 5 chronic kidney disease, or end stage renal disease; N25.81 Secondary hyperparathyroidism of renal origin; N39.0 Urinary tract infection, site not specified; L03.818 Cellulitis of other sites; R65.10 Systemic inflammatory response syndrome (SIRS) of non-infectious origin without acute organ dysfunction; E10.622 Type 1 diabetes mellitus with other skin ulcer; E10.51 Type 1 diabetes mellitus with diabetic peripheral angiopathy without gangrene; E10.22 Type 1 diabetes mellitus with diabetic chronic kidney disease; S89.101A Unspecified physeal fracture of lower end of right tibia, initial encounter for closed fracture; X58.XXXA Exposure to other specified factors, initial encounter; E10.43 Type 1 diabetes mellitus with diabetic autonomic (poly)neuropathy; K31.84 Gastroparesis; R33.9 Retention of urine, unspecified; L89.519 Pressure ulcer of right ankle, unspecified stage; H54.61 Unqualified visual loss, right eye, normal vision left eye; I48.91 Unspecified atrial fibrillation; F32.9 Major depressive disorder, single episode, unspecified; I25.10 Atherosclerotic heart disease of native coronary artery without angina pectoris; Z95.1 Presence of aortocoronary bypass graft; Z99.2 Dependence on renal dialysis; Z95.5 Presence of coronary angioplasty implant and graft; Z90.710 Acquired absence of both cervix and uterus; Z89.512 Acquired absence of left leg below knee; Z79.82 Long term (current) use of aspirin; Z95.828 Presence of other vascular implants and grafts; Z82.49 Family history of ischemic heart disease and other diseases of the circulatory system; Z80.9 Family history of malignant neoplasm, unspecified; Y93.89 Activity, other specified; Y92.89 Other specified places as the place of occurrence of the external cause; Y99.8 Other external cause status

== ENCOUNTER 2018-06-18 08:45 | Emergency (ER) | payer OTHER, MEDICAID ==
[~2018-06-18] VITALS: Ht 162.6 cm; Wt 59.4 kg
[~2018-06-18 08:45] MED LIST changes: +DOXYCYCLINE 10100 MG PO
[2018-06-18 09:59] LABS: ABSOLUTE BASOPHILS 0.1 thou/uL (0.0-0.2); ABSOLUTE EOSINOPHILS 0.2 thou/uL (0.0-0.7); ABSOLUTE LYMPHOCYTES 1.7 thou/uL (0.8-5.3); ABSOLUTE MONOCYTES 0.6 thou/uL (0.0-1.2); ABSOLUTE NEUTROPHILS 5.3 thou/uL (1.6-8.1); BASOPHILS 1.4 %; HEMATOCRIT 38.1 % (37.0-47.0); LYMPHOCYTES 21.8 %; MCH 29.3 pg (26.0-34.0); MCHC 31.5 g/dL (28.0-37.0); MCV 92.8 fL (80.0-100.0); MONOCYTES 7.8 %; NUCLEATED RBCS 0 /100WBC; PLATELET COUNT* 321 thou/uL (150-400); RDW-CV 17.7 % (10.5-14.5)
[2018-06-18 10:08] LABS: ANION GAP 10 mmol/L (7-16); BUN 28 mg/dL (7-18); CALCIUM 9.1 mg/dL (8.5-10.1); CHLORIDE 99 mmol/L (98-107); CO2 29 mmol/L (21-32); CREATININE 4.7 mg/dL (0.6-1.3); GLUCOSE 254 mg/dL (70-99); POTASSIUM 4.4 mmol/L (3.5-5.1); SODIUM 138 mmol/L (136-145)
[2018-06-18 10:19] LABS: ALBUMIN 2.8 g/dL (3.4-5.0); ALKALINE PHOSPHATASE 238 U/L (46-116); SGOT 11 U/L (15-37); SGPT 9 U/L (30-65); TOTAL BILIRUBIN 0.4 mg/dL (<0.1-1.0); TOTAL PROTEIN 7.5 g/dL (6.4-8.2); TROPONIN-I LEVEL <0.06 ng/mL (<0.06)
[2018-06-18] MEDS ORDERED: DOXYCYCLINE 10100 MG PO (10:34)
[2018-06-18 10:48] VITALS: BP 121/69
--- NOTE | 2018-06-18 11:12 | EKG ---
[place] [address] ELECTROCARDIOGRAM REPORT Name: JACIELERIN GUNTER LILIAM Room: [facility]#: [id number] Admission: 06/18/18 Attend Phys: Discharge: 06/18/18 Date of : 59 Report #: [id number] THIS REPORT FOR: //name// [facility] ED Test Date: 2018-06-18 Test Time: 09:37:55 Pat Name: ERIN GRISSOM Department: Room: Gender: F Mushroom Picker: TIAN : 1955 Requested By: Shawn Leonardo Order Number: [id number] MD: Alexis Ramirez Measurements Intervals [place] Rate: 55 P: -9 NM: 208 QRS: 93 QRSD: 94 T: -17 QT: 544 QTc: 521 Interpretive Statements Sinus rhythm Anterior infarct, old Borderline T abnormalities, inferior leads Prolonged QT interval Compared to ECG 05/15/2018 14:07:27 T-wave abnormality now present Q waves no longer present Myocardial infarct finding still present Electronically Signed On 06-18-2018 11:12:07 [employer] by Alexis Ramirez [email or web address] <ELECTRONICALLY SIGNED> By: Alexis Ramirez MD, FACC 06/18/18 1112 0937 0937 Alexis Ramirez MD, FAC /EPI
== END 2018-06-18 10:49 | disposition home or self-care (01) ==
LOC: M.ERS 08:45
PROVIDERS: Emergency Medicine Emergency Medical Services
DX: L03.115 Cellulitis of right lower limb (principal); L03.312 Cellulitis of back [any part except buttock and flank]; I25.10 Atherosclerotic heart disease of native coronary artery without angina pectoris; I73.9 Peripheral vascular disease, unspecified; F32.9 Major depressive disorder, single episode, unspecified; I48.91 Unspecified atrial fibrillation; I13.2 Hypertensive heart and chronic kidney disease with heart failure and with stage 5 chronic kidney disease, or end stage renal disease; E11.22 Type 2 diabetes mellitus with diabetic chronic kidney disease; N18.6 End stage renal disease; I50.32 Chronic diastolic (congestive) heart failure; E11.43 Type 2 diabetes mellitus with diabetic autonomic (poly)neuropathy; K31.84 Gastroparesis; Z90.710 Acquired absence of both cervix and uterus; Z95.1 Presence of aortocoronary bypass graft; Z99.2 Dependence on renal dialysis; Z79.4 Long term (current) use of insulin

== ENCOUNTER 2018-09-21 17:22 | Inpatient (IN) | payer OTHER, MEDICAID ==
[~2018-09-21] VITALS: Ht 157.5 cm; Wt 59.9 kg
[2018-09-21 17:31] VITALS: BP 209/74
[2018-09-21 18:22] LABS: ABSOLUTE BASOPHILS 0.1 thou/uL (0.0-0.2); ABSOLUTE EOSINOPHILS 0.2 thou/uL (0.0-0.7); ABSOLUTE LYMPHOCYTES 1.7 thou/uL (0.8-5.3); ABSOLUTE MONOCYTES 0.5 thou/uL (0.0-1.2); ABSOLUTE NEUTROPHILS 4.7 thou/uL (1.6-8.1); BASOPHILS 0.8 %; EOSINOPHILS 2.9 %; HEMATOCRIT 34.7 % (37.0-47.0); HEMOGLOBIN 11.3 gm/dL (12.0-15.0); LYMPHOCYTES 23.4 %; MCH 29.9 pg (26.0-34.0); MCHC 32.5 g/dL (28.0-37.0); MCV 92.2 fL (80.0-100.0); MONOCYTES 7.5 %; MPV 11.1 fl. (7.2-11.1); NUCLEATED RBCS 0 /100WBC; PLATELET COUNT* 240 thou/uL (150-400); POLYS 65.4 %; RBC 3.76 mil/uL (4.20-5.00); RDW-CV 19.9 % (10.5-14.5); WBC 7.2 thou/uL (4.0-11.0)
[2018-09-21 18:29] LABS: URINE BILIRUBIN NEGATIVE (Negative); URINE BLOOD NEGATIVE (Negative); URINE CLARITY CLEAR; URINE COLOR YELLOW; URINE GLUCOSE-RANDOM NEGATIVE (Negative); URINE KETONES NEGATIVE (Negative); URINE LEUKOCYTES-REFLEX TRACE (Negative); URINE NITRITE-REFLEX NEGATIVE (Negative); URINE PROTEIN 3+ (Negative); URINE UROBILINOGEN 0.2 E.U./dl (0.2-1.0)
[2018-09-21 18:32] LABS: PROTIME 10.2 Seconds (9.20-11.50)
[2018-09-21 18:37] LABS: AMORPHOUS URATES Many /LPF (None Seen); BACTERIA-REFLEX 1-9 Few /HPF (None Seen); CASTS None Seen /LPF (None Seen); CRYSTALS None Seen /LPF (None Seen); SQUAMOUS NONE SEEN /LPF (0-3); URINE RBC None Seen /HPF (0-2); URINE WBC-REFLEX None Seen /HPF (0-5)
[2018-09-21 18:42] LABS: ALBUMIN 3.1 g/dL (3.4-5.0); CALCIUM 9.2 mg/dL (8.5-10.1); CREATININE 3.1 mg/dL (0.6-1.3); POTASSIUM 4.2 mmol/L (3.5-5.1); TOTAL BILIRUBIN 0.3 mg/dL (<0.1-1.0); TOTAL PROTEIN 6.8 g/dL (6.4-8.2)
[2018-09-21 19:25] LABS: BE 0.8 mmol/L (-2 to +3); PCO2 38.5 mmHg (35.0-45.0); pH 7.431 (7.340-7.450)
[2018-09-21 19:27] LABS: PO2 44.6 mmHg (75.0-100.0)
[2018-09-21 21:28] VITALS: BP 197/75
[2018-09-21 21:30] VITALS: BP 188/70
[2018-09-21 23:00] VITALS: BP 199/74
[2018-09-22 03:12] VITALS: BP 128/41
--- NOTE | 2018-09-22 04:44 | NUR ---
RECEIVED PT FROM ED AT APPROX 2128H. PT IS AWAKE AND ORIENTED X4. VSS ON 2L/NC. PLACED ON RACING MECHANIC-TRACING SR. WITH COMPLAINTS OF RIGHT LEG PAIN, RELIEVED BY FENTANYL IV ORDERED BY DR. CAMPOVERDE GIVEN PER AUG. BP: 190/61, HYDRALAZINE IV GIVEN PER AUG. REPEAT BP: 128/41. CLOSELY MONITORED. ADVISED ON THE USE OF CALL LIGHT. ORIENTED TO ROOM SET UP. HOURLY ROUNDING DONE FOR PT SAFETY. FALL PRECAUTIONS IN PLACE
[2018-09-22 08:00] VITALS: BP 161/57
[2018-09-22 10:06] LABS: BE -3.6 mmol/L (-2 to +3); PCO2 37.8 mmHg (35.0-45.0); PO2 69.9 mmHg (75.0-100.0); pH 7.369 (7.340-7.450)
--- NOTE | 2018-09-22 11:10 | EKG ---
[place] [address] ELECTROCARDIOGRAM REPORT Name: ERIN GRISSOM Room: [address] ADM IN M.R.#: [id number] Admission: 09/21/18 Attend Phys: Rosaura Cruz Discharge: Date of : 59 Report #: [id number] THIS REPORT FOR: //name// [facility] ED Test Date: 2018-09-21 Test Time: 21:03:25 Pat Name: ERIN GRISSOM Department: Room: [facility] Gender: F Funeral Director And Embalmer: JEROD : 1955 Requested By: Lorne Moyer Order Number: [id number] MD: Trevor Beck Measurements Intervals [place] Rate: 54 P: 16 KS: 225 QRS: 62 QRSD: 97 T: -89 QT: 558 QTc: 529 Interpretive Statements Sinus rhythm Prolonged KS interval Probable left ventricular hypertrophy Anterior Q waves, possibly due to LVH Borderline T abnormalities, inferior leads Prolonged QT interval Compared to ECG 06/18/2018 09:37:55 First degree AV block now present Left ventricular hypertrophy now present T-wave abnormality still present Electronically Signed On 09-22-2018 11:10:30 CDT by Trevor Beck [email or web address] <ELECTRONICALLY SIGNED> By: Trevor Beck MD, [facility] 09/22/18 1110 02 02 Trevor Beck MD, [facility] /EPI
--- NOTE | 2018-09-22 11:23 | NUR ---
MET WITH PT TO DISCUSS HOME SITUATION/DC PLANNING. PT LIVES WITH SON/ANGELA WHO IS HER PRIMARY CAREGIVER AND DPOA WELL A FRIEND/PRIYA. ANGELA AND PRIYA ASSIST PT WITH ADLS AND DO ALL THE HOUSEKEEPING/DRIVING. PT IS NON AMBULATORY, USES W/C. SHE NEEDS ASSIST WITH ALL ADLS. SON DRIVES PT TO [facility] T/T/S. SHE HAS HAD HH WITH [facility] AND BEEN TO SNF AT [facility] IN THE PAST. PT PLANS TO RETURN HOME AT DC. WILL FOLLOW
[2018-09-22 12:00] VITALS: BP 184/61
--- NOTE | 2018-09-22 18:50 | NUR ---
PT VSS PT TOLERATING DIET AT THIS TIME, PT SB ON THE MONITOR WITH 2L PER NC AT THIS TIME. PT TAKES PILLS WITH APPLESAUCE AND WAS NOT ABLE TO TAKE CALCIUM ACETATE. PT HAS STRAIGHT CATH ORDERS Q6 BUT NO PARAMETERS, PT DID NOT WANT BLADDER SCAN OR STRAIGHT CATH THIS SHIFT. WILL ATTEMPT TO GET BLADDER SCAN PRIOR TO LEAVING. PT BEDREST THIS SHIFT. PT HAS BKA ON LLE. PT WENT TO DIALYSIS (HAS R CHEST DIALYSIS ACCESS) AND HAS HAD 2L REMOVED. 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 NEPH, WOUND, AND CM HAS BEEN CONSULTED. PT HAS BEEN GIVEN PAIN MEDICAITIONS THIS SHIFT AND WAS PROVIDED DURING DIALYSIS. INSULIN NOT PROVIDED DUE TO DIALYSIS TREATMENT
--- NOTE | 2018-09-22 19:08 | NUR ---
PT BACK FROM DIALYSIS, PT GIVEN TRAY BY [employer] SALES REPRESENTATIVE. NO BLOOD SUGAR CHECK DONE, MOLDER BENCH NOTIFIED OF END OF DIALYSIS VS, WEIGHT AND THAT 2L WAS TAKEN OFF. PT WAS PROVIDED PAIN MEDICATIONS WHILE IN DIALYSIS BY THIS RN. WILL SIGN OFF AT THIS TIME
[2018-09-22 20:00] VITALS: BP 178/59
[2018-09-23] VITALS: BP 143/40
[2018-09-23 04:00] VITALS: BP 139/86
[2018-09-23 04:44] LABS: HEMATOCRIT 29.5 % (37.0-47.0); HEMOGLOBIN 9.6 gm/dL (12.0-15.0); MCH 30.3 pg (26.0-34.0); MCHC 32.7 g/dL (28.0-37.0); MCV 92.8 fL (80.0-100.0); MPV 10.9 fl. (7.2-11.1); RBC 3.18 mil/uL (4.20-5.00); RDW-CV 19.7 % (10.5-14.5); WBC 7.8 thou/uL (4.0-11.0)
[2018-09-23 05:14] LABS: CALCIUM 8.4 mg/dL (8.5-10.1); MAGNESIUM 1.9 mg/dL (1.8-2.4); PHOSPHORUS* 1.8 mg/dL (2.5-4.9); POTASSIUM 3.7 mmol/L (3.5-5.1)
[2018-09-23 05:21] LABS: CREATININE 2.1 mg/dL (0.6-1.3)
--- NOTE | 2018-09-23 05:58 | NUR ---
ASSUMED PT CARE AT APPROX 1930. PT IS AWAKE AND ORIENTED X4. VSS ON 2L/NC. RE-ASSESSMENT DONE AND CHARTED. POSITION CHANGES DONE Q2HRS. KEPT CLEAN AND DRY. BLADDER SCAN DONE AND CHARTED ORDERED. STRAIGHT CATHETERIZATION DONE AND CHARTED. BLOOD GLUCOSE=69, GAVE PT SOME APPLE JUICE. CALL LIGHT WITHIN REACH. HOURLY ROUNDING DONE FOR PT SAFETY.
[2018-09-23 06:28] LABS: GLYCOHEMOGLOBIN (HGB A1C) 8.1 % (4.8-5.6)
[2018-09-23 07:50] VITALS: BP 179/50
[2018-09-23 12:35] VITALS: BP 181/58
[2018-09-23 16:28] VITALS: BP 189/69
--- NOTE | 2018-09-23 18:27 | NUR ---
PT IS INCONTINENT OF BOWEL AND BLADDER THIS SHIFT. PT HAD BLADDER SCAN LESS THAN 300 AT 1000 AND 303 AT 1700, WILL LET NOC SHIFT KNOW, DID NOT STRAIGHT CATH FOR THIS LOW AMOUNT AT THIS TIME. PT HAS REDUCED URINE OUTPUT, BUT TO BE EXPECTED DUE TO HER CKD. PT TOELRATING O2 AT 2L THIS SHIFT WITH NO COMPLICATIONS. PIX OF WOUNDS TAKEN AND PLACED IN CHART. PT WENT FOR CT TODAY AND TOLERATED THE SCAN WITH NO COMPLAINTS. IV PAIN MEDICATIONS HAVE BEEN DISCONTINUED THIS SHIFT. PT RT CHEST DIALYSIS ACCESS IS CDI AT THIS TIME. PT SR/SB ON TELEMETRY THIS SHIFT.
[2018-09-23 20:00] VITALS: BP 219/82
[2018-09-24] VITALS (7 sets, daily range): BP systolic 150–193; BP diastolic 47–59
--- NOTE | 2018-09-24 05:23 | NUR ---
RECEIVED REPORT AND ASSUMED CARE AT 1900. BP ELEVATED, OTHERWISE VSS. PRN MEDICATION ADMIN PER ORDERS FOR BP. PT REPORTED PAIN IN HER LEGS, PRN MEDICATION ADMIN PER ORDERS. ASSESSMENT COMPLETED CHARTED. PT BLADDER SCAN COMPLETED, SHOWING 360ML. STRAIGHT CATH PROVIDED, 150ML URINE OUT VIA CATH. RESIDUAL ON BLADDER SCAN SHOWING 58ML. KNEE IMMOBILIZER APPLIED TO R LEG. PT UP WITH ASSIST, ON 2L NC. BED LOCKED IN LOWEST POSITION, CALL LIGHT WITHIN REACH, BED ALARM ON. POSITION CHANGED EVERY TWO HOURS, PT TURNS SELF. HEEL OFFLOADED THROUGHT MOST OF NIGHT. PT REFUSED AT BEGINNING OF SHIFT. WAS EDUCATED ON RISK OF PRESSURE ULCER IF NOT OFF LOADING. PT ENCOURAGED TO OFF LOAD THROUGH SHIFT. HOURLY ROUNDING COMPLETED AND ALL NEEDS MET.
--- NOTE | 2018-09-24 10:16 | NUR ---
PT A/O. TELE TRACKING NSR/LORENA WITH BBB. BP THIS AM ELEVATED-MEDICATED PER EMAR. VITALS OTHERWISE STABLE. RIGHT LEG IMMOBILIZER IN PLACE. PT TURNS SELF IN BED FREQUENTLY- WOUND CARE NURSE AT BEDSIDE THIS AM EVAL/TREAT COCCYX WOUND. EDUCATED ON SAFETY AND PLAN OF CARE. PLEASE SEE ASSESSMENT FOR ADDITIONAL INFORMATION. WILL CONTINUE TO MONITOR
--- NOTE | 2018-09-24 11:17 | NUR ---
WOUND CARE NOTE: CONSULT RECEIVED FOR WOUND ON COCCYX. PATIENT HAS A STAGE 3 PRESSURE ULCER TO HER SACRUM. WOUND MEASURES 0.7X0.4X0.5 WITH UNDERMINING CIRCUMFIRENTIALLY 0.7CM. ALEXANDR-WOUND IS MACERATED, POSSIBLY HAS EPIBOLE. CLEANSED AREA WITH WOUND CLEANSER, PATTED DRY. APPLIED AQUACEL AG INTO WOUND BED AND COVERED WITH A BORDERED FOAM. PATIENT IS UNSURE OF THE TREATMENT SHE HAS BEEN DOING AT HOME, STATES HER SON HELPS HER WITH IT. EDUCATED PATIENT ON IMPORTANCE OF STAYING OFF WOUND, WILL NEED REINFORCEMENT. RECOMMEND TURN Q2 HOURS-KEEP OFF WOUND ENCOURAGE GOOD NUTRTION/HYDRATION TIGHT BLOOD SUGAR CONTROL FOLLOW UP WITH DR. QUINONES IN [facility] 10/01/18 0830 WAFFLE CUSHION WHEN IN CHAIR LIMIT HOB <30 DEGREES LIMIT LAYERS OF LINEN UNDER PATIENT
[2018-09-24] MEDS ORDERED: PERCOCET PO (13:09)
[2018-09-24] MEDS ORDERED: PLAVIX 75 MG TA75 M1 PO (13:09)
--- NOTE | 2018-09-24 15:38 | NUR ---
PT DC HOME IN STABLE CONDITION WITH ALL BELONGINGS, WEARING LEG IMMOBILIZER WITH FAMILY AT 1538. PT AND SON VERBALIZE UNDERSTANDING OF ALL DC INSTRUCTIONS.
--- NOTE | 2018-09-25 15:15 | CON ---
[address] [address] CONSULTATION Name: ERIN GRISSOM Room: [address] IN M.R.#: [id number] Admission: 09/21/18 Attend Phys: Rosaura Cruz Discharge: 09/24/18 Date of : 59 Report #: [id number] THIS REPORT FOR: //name// CC: KYLE physician/PCP Maribell Champion DATE OF SERVICE: 09/22/2018 CONSULTING PHYSICIAN: Dr. Champion. REASON FOR CONSULTATION: End-stage kidney disease. HISTORY OF PRESENT ILLNESS: The patient is a 63-year-old female who was admitted with leg pain. She has been admitted for further management and orthopedic consultation. She had her last dialysis on , tolerated that well. Currently has no complaints. Denies any shortness of breath and appears comfortable. REVIEW OF SYSTEMS: Constitutional, psych, heme, eyes, ENT, respiratory, cardiac, GI, , endocrine, all negative except as documented above. PAST MEDICAL HISTORY: End-stage kidney disease, hypertension, diabetes type 1, blind right eye, peripheral vascular disease with history of stenting in the lower extremities, coronary artery disease with history of 4-vessel CABG, hysterectomy, depression, history of diastolic heart failure, AFib, history of hip fracture, history of left BKA in 2016. CURRENT MEDICATIONS: Reviewed. SOCIAL HISTORY: No tobacco. FAMILY HISTORY: Not pertinent. PHYSICAL EXAMINATION: VITAL SIGNS: Blood pressure 161/57, pulse 59, temperature 36.8. GENERAL: In no acute distress. EARS: Externally normal. NECK: Supple. CARDIOVASCULAR: Regular rate. LUNGS: No crackles. ABDOMEN: Soft. MUSCULOSKELETAL: Nontender. PSYCHIATRIC: Awake, alert. LABORATORY DATA: White cell count 7.2, hemoglobin 11.3, platelets 240. Sodium 135, potassium 4.2, chloride 96, bicarbonate 30, BUN 33, creatinine 3.1, [place] [address] CONSULTATION Name: ERIN GRISSOM Room: [address] IN [facility].#: [id number] Admission: 09/21/18 Attend Phys: Rosaura Cruz Discharge: 09/24/18 Date of : 59 Report #: [id number], calcium 9.2. ASSESSMENT AND PLAN: 1. End-stage kidney disease, hemodialysis on Tuesdays, , Saturdays at the [facility]. 2. Hypertension. 3. Insulin-dependent diabetes. 4. Secondary hyperparathyroidism, on PhosLo. PLAN: Continue maintenance dialysis. We will follow for dialysis needs. Thank you for requesting my opinion in the care and management of this patient. <ELECTRONICALLY SIGNED> By: Latoya Wyatt MD 09/25/18 1515 1417 0010Abid Aida Wyatt MD /nt
== END 2018-09-24 15:47 | disposition home health service (06) | DRG 542 ==
LOC: M.ERS 17:22 → M.TBA-ER 19:01 → M.2W 19:01
PROVIDERS: Family Medicine; Personal Emergency Response Attendant; ADMIT Internal Medicine
PROC: 5A1D70Z Performance of Urinary Filtration, Intermittent, Less than 6 Hours Per Day (ICD-10-PCS; principal; 2018-09-22)
DX: M80.052A Age-related osteoporosis with current pathological fracture, left femur, initial encounter for fracture (principal); N18.6 End stage renal disease; D68.59 Other primary thrombophilia; N39.0 Urinary tract infection, site not specified; I13.2 Hypertensive heart and chronic kidney disease with heart failure and with stage 5 chronic kidney disease, or end stage renal disease; I50.32 Chronic diastolic (congestive) heart failure; S82.402A Unspecified fracture of shaft of left fibula, initial encounter for closed fracture; E10.51 Type 1 diabetes mellitus with diabetic peripheral angiopathy without gangrene; F32.9 Major depressive disorder, single episode, unspecified; F41.9 Anxiety disorder, unspecified; G24.9 Dystonia, unspecified; K59.00 Constipation, unspecified; I48.91 Unspecified atrial fibrillation; W19.XXXA Unspecified fall, initial encounter; I25.10 Atherosclerotic heart disease of native coronary artery without angina pectoris; I16.0 Hypertensive urgency; M79.604 Pain in right leg; E21.3 Hyperparathyroidism, unspecified; X58.XXXA Exposure to other specified factors, initial encounter; Z79.899 Other long term (current) drug therapy; Y93.89 Activity, other specified; Z79.4 Long term (current) use of insulin; Z99.2 Dependence on renal dialysis; Z90.710 Acquired absence of both cervix and uterus; Y92.89 Other specified places as the place of occurrence of the external cause; Y99.8 Other external cause status; Z82.49 Family history of ischemic heart disease and other diseases of the circulatory system

== ENCOUNTER 2018-10-18 06:48 | Inpatient (IN) | payer OTHER, MEDICAID ==
[~2018-10-18] VITALS: Ht 132.1 cm; Wt 54.0 kg
[~2018-10-18 06:48] MED LIST changes: +LEVAQUIN 500 M500 M2 PO; +PERCOCET PO
[2018-10-18 06:49] VITALS: BP 177/90
[2018-10-18] MEDS ORDERED: CELEXA20 MG PO (07:11)
[2018-10-18 07:12] LABS: ABSOLUTE BASOPHILS 0.1 thou/uL (0.0-0.2); ABSOLUTE EOSINOPHILS 0.2 thou/uL (0.0-0.7); ABSOLUTE LYMPHOCYTES 1.3 thou/uL (0.8-5.3); ABSOLUTE MONOCYTES 1.2 thou/uL (0.0-1.2); ABSOLUTE NEUTROPHILS 6.3 thou/uL (1.6-8.1); EOSINOPHILS 2.4 %; HEMATOCRIT 25.9 % (37.0-47.0); HEMOGLOBIN 8.6 gm/dL (12.0-15.0); LYMPHOCYTES 14.6 %; MCH 31.6 pg (26.0-34.0); MCHC 33.2 g/dL (28.0-37.0); MCV 95.3 fL (80.0-100.0); MONOCYTES 12.8 %; MPV 9.7 fl. (7.2-11.1); NUCLEATED RBCS 0 /100WBC; PLATELET COUNT* 301 thou/uL (150-400); POLYS 69.2 %; RBC 2.71 mil/uL (4.20-5.00); RDW-CV 17.3 % (10.5-14.5); WBC 9.1 thou/uL (4.0-11.0)
[2018-10-18 07:23] LABS: INR 1.1; PROTIME 10.8 Seconds (9.20-11.50)
[2018-10-18 07:29] LABS: ANION GAP 8 mmol/L (7-16); BUN 29 mg/dL (7-18); CALCIUM 9.8 mg/dL (8.5-10.1); CHLORIDE 98 mmol/L (98-107); CO2 30 mmol/L (21-32); CREATININE 5.1 mg/dL (0.6-1.3); GLUCOSE 133 mg/dL (70-99); POTASSIUM 5.4 mmol/L (3.5-5.1); SODIUM 136 mmol/L (136-145); TROPONIN-I LEVEL <0.06 ng/mL (<0.06)
[2018-10-18 07:30] LABS: ALBUMIN 2.8 g/dL (3.4-5.0); ALKALINE PHOSPHATASE 155 U/L (46-116); NT-PRO BRAIN NAT PEPTIDE 27461 pg/mL (<300); SGOT 16 U/L (15-37); SGPT 14 U/L (30-65); TOTAL BILIRUBIN 0.3 mg/dL (<0.1-1.0)
[2018-10-18 07:44] LABS: URINE BILIRUBIN NEGATIVE (Negative); URINE BLOOD 2+ (Negative); URINE CLARITY CLOUDY; URINE COLOR YELLOW; URINE GLUCOSE-RANDOM NEGATIVE (Negative); URINE KETONES NEGATIVE (Negative); URINE NITRITE-REFLEX NEGATIVE (Negative); URINE PROTEIN 3+ (Negative); URINE UROBILINOGEN 0.2 E.U./dl (0.2-1.0)
[2018-10-18 07:45] LABS: URINE LEUKOCYTES-REFLEX 3+ (Negative)
[2018-10-18 07:53] LABS: BACTERIA-REFLEX >30 Many /HPF (None Seen); CASTS None Seen /LPF (None Seen); MUCUS None Seen strn/LPF (None Seen); SQUAMOUS 4-10 Moderate /LPF (0-3); URINE RBC 0-2 Rare /HPF (0-2); URINE WBC-REFLEX >25 Many /HPF (0-5); WBC CLUMPS Many (None Seen)
[2018-10-18 07:54] LABS: CRYSTALS None Seen /LPF (None Seen)
[2018-10-18 11:54] VITALS: BP 188/74
--- NOTE | 2018-10-18 13:04 | NUR ---
ORDERED LUNCH FOR PT BUT PT PERFERRED TO SLEEP
--- NOTE | 2018-10-18 13:27 | NUR ---
PT TRANSFERRED OVER TO HOSPITAL BED. PT RECIEVED THOROUGH ALEXANDR CARE. PT PREFERRED TO SLEEP AFTER FOOD TRAY WAS OFFERED AGAIN.
[2018-10-18 15:56] VITALS: BP 186/92
[2018-10-18 16:15] VITALS: BP 186/92
[2018-10-18 16:30] VITALS: BP 194/76
--- NOTE | 2018-10-18 18:28 | NUR ---
PATIENT ARRIVED FROM ER THIS EVENING. HISTORY, ASSESMENT AND VITALS COMPLETED AND DOCUMENTED. PATIENT IS LETHARGIC AT THIS TIME. BLOOD PRESSURE HIGH, DR TOURE NOTIFIED AND ORDER FOR HYDRALAZINE RECEIVED AND GIVEN. MORTENSEN CATHERTER PLACED PER ORDERS, URINE IS PURULENT/YELLOW. WOUND TO COCCYX DRESSED. BED ALARM ON. WILL CONTINUE TO MONITOR.
[2018-10-18 20:00] VITALS: BP 159/70
[2018-10-18 23:56] LABS: BE 3.4 mmol/L (-2 to +3); PCO2 VENOUS 40.7 mmHg (41.0-51.0); PO2 VENOUS 184.6 mmHg (35.0-45.0)
[2018-10-19 04:20] VITALS: BP 202/89
[2018-10-19 04:25] LABS: HEMATOCRIT 24.3 % (37.0-47.0); HEMOGLOBIN 7.8 gm/dL (12.0-15.0); MCH 31.1 pg (26.0-34.0); MCHC 32.2 g/dL (28.0-37.0); MCV 96.5 fL (80.0-100.0); MPV 9.7 fl. (7.2-11.1); RBC 2.52 mil/uL (4.20-5.00); RDW-CV 18.2 % (10.5-14.5); WBC 7.9 thou/uL (4.0-11.0)
--- NOTE | 2018-10-19 04:44 | NUR ---
ASSUMED CARE OF PT AT 1900 PT LETHAGIC REPORTED FROM DAY SHIFT NURSE. PT NOT TAKING PO MEDS OR FOOD D/T LETHARGY HELD HS LANTUS D/T THIS AND BG 97. PT TURNED Q2H. PT GIVEN HYDRALAZINE FOR 0400 BP OF 202/89. WILL CONTINUE PLAN OF CARE.
[2018-10-19 05:21] VITALS: BP 135/59
[2018-10-19 05:43] LABS: CALCIUM 9.8 mg/dL (8.5-10.1); CREATININE 6.2 mg/dL (0.6-1.3); MAGNESIUM 2.5 mg/dL (1.8-2.4); POTASSIUM 5.9 mmol/L (3.5-5.1)
[2018-10-19 08:50] VITALS: BP 176/84
--- NOTE | 2018-10-19 09:29 | NUR ---
Talked with pt family this morning, Tanya Fields who is listed as an authorized contact. She would like to speak to case a records management manager regarding her care and discharge. Family does NOT want her to go to [facility] unless it is absolutely necessary, they would like to try a different facility.
--- NOTE | 2018-10-19 10:28 | NUR ---
Pt known to this CM due to past and recent admission. Pt dc to [facility] SNF most recently. Pt has hx of SNF at [facility]; they are unwilling to accept pt back to SNF. Pt was living at home with her son and son's girlfriend/christiano Martínez. Pt receives dialysis through [facility]. Pt has needed DME. Pt has hx with [facility]. SW to continue to follow to assist with safe dc planning.
--- NOTE | 2018-10-19 11:12 | NUR ---
Nutrition: Pt admitted with UTI, sepsis. H/o DM on insulin, ESRD on HD, CHF, CAD, HTN. Labs: BUN 35, cr 6.2, K+ 5.9, alb 2.8, prealb 13. Pressure ulcer on coccyx. Wt is usually ~130#. Renal diet ordered. RD ordered Beneprotein tid for added protein intake. Mild risk. No other nutrition interventions needed at this time.
--- NOTE | 2018-10-19 11:15 | NUR ---
WOUND CARE NOTE: ASSESSMENT FOR PRESSURE ULCER TO COCCYX. PATIENT KNOWN TO ME FROM PREVIOUS HOSPITAL STAYS. PRESENTS WITH A STAGE 3 PRESSURE ULCER TO THE COCCYX. WOUND MEASURES 1.5X0.2X0.5 WITH UNDERMINING FROM 3-5 O'CLOCK 1CM. ALEXANDR-WOUND IS MACERATED. WOUND BED IS MOIST WITH 50% YELLOW, ADHERENT SLOUGH TISSUE AND 50% RED MOIST, NON-GRANULAR TISSUE. CLEANSED WITH WOUND CLEANSER, PATTED DRY. APPLIED SKIN-PREP TO ALEXANDR-WOUND. PACKED WOUND WITH AQUACEL AG AND COVERED WITH A BORDERED FOAM. PATIENT HAD EPISODE OF INCONTINENCE OF STOOL, CLEANSED AND PLACED NEW CHUX. PATIENT TOLERATED DRESSING CHANGE WELL. ADMITS TO SITTING A LOT AT HOME. ADMITS TO NOT BEING SEEN AT WOUND CENTER YET. PATIENT WAS EDUCATED ON IMPORTANCE OF KEEPING OFF WOUND, TURNING. COMMUNICATED UNDERSTANDING AND TURNED HERSELF TO THE RIGHT SIDE. RECOMMEND ENCOURAGE GOOD NUTRTION/HYDRATION TIGHT BLOOD GLUCOSE CONTROL TURN Q2 HOURS-KEEP OFF WOUND WAFFLE CUSHION IF IN CHAIR-ORDERED LIMIT TIME IN CHAIR LIMIT HOB <30 DEGREES LIMIT LAYERS OF LINEN UNDER PATIENT. NEEDS TO FOLLOW UP IN THE WOUND CENTER
--- NOTE | 2018-10-19 11:37 | EKG ---
[place] [address] ELECTROCARDIOGRAM REPORT Name: ERIN GRISSOM Room: [address] ADM IN M.R.#: [id number] Admission: 10/18/18 Attend Phys: Srinath Reynolds MD Discharge: Date of : 59 Report #: [id number] THIS REPORT FOR: //name// [facility] ED Test Date: 2018-10-18 Test Time: 07:13:32 Pat Name: ERIN GRISSOM Department: Room: [facility] Gender: F Advanced Analytics Associate: Carmen KAUFMAN : 1955 Requested By: Clair Thompson Order Number: [id number] MD: Curt Starr Measurements Intervals [place] Rate: 92 P: [place]: QRS: 70 QRSD: 97 T: 4 QT: 415 QTc: 514 Interpretive Statements Atrial fibrillation Anterior infarct, old Prolonged QT interval Compared to ECG 10/06/2018 00:37:48 Sinus bradycardia no longer present First degree AV block no longer present Left posterior fascicular block no longer present T-wave abnormality no longer present Myocardial infarct finding still present Electronically Signed On 10-19-2018 11:37:50 CDT by Curt Starr [email or web address] <ELECTRONICALLY SIGNED> By: Curt Starr MD, [facility] 10/19/18 1137 2 2 Curt Starr MD, [facility] /EPI
--- NOTE | 2018-10-19 18:18 | NUR ---
0700 ASSUMED CARE OF PT, PT IN BED SLEEPING. PT VERY LETHARGIC, ABLE TO OPEN EYES TO VERBAL STIMULATION THEN BACK TO SLEEPING. 1045 PT AWAKE AND ABLE TO EAT PUDDING AND TAKE PO MEDS. PT A&O X1-2, PT REORIENTED TO CALL LIGHT.
[2018-10-19 21:00] VITALS: BP 159/67
[2018-10-20 04:27] LABS: HEMOGLOBIN 7.6 gm/dL (12.0-15.0); MCH 31.6 pg (26.0-34.0); MCHC 33.1 g/dL (28.0-37.0); MCV 95.6 fL (80.0-100.0); MPV 9.8 fl. (7.2-11.1); RBC 2.41 mil/uL (4.20-5.00); RDW-CV 17.5 % (10.5-14.5); WBC 6.5 thou/uL (4.0-11.0)
[2018-10-20 04:55] LABS: CALCIUM 7.9 mg/dL (8.5-10.1); MAGNESIUM 1.9 mg/dL (1.8-2.4); POTASSIUM 4.1 mmol/L (3.5-5.1)
[2018-10-20 04:57] LABS: CREATININE 3.1 mg/dL (0.6-1.3)
--- NOTE | 2018-10-20 06:10 | NUR ---
PATIENT SLEPT VERY LITTLE THIS SHIFT. PATIENT HAS BEEN HUNGRY ALL NIGHT AND REQUESTING SEVERAL PUDDINGS AND A BOX LUNCH. CHECKED HER BLOOD SUGAR AT BEGIINING OF SHIFT WAS 166 AND CHECKED DURING THE MIDDLE OF THE SHIFT WHEN SHE WAS REQUESTING MORE FOOD WAS 278 INFORMED PATIENT SHE COULD ONLY HAVE SUGAR FREE JELLO TO EAT DUE TO HER BLOOD SUGAR BEING HIGH. IV REMAINS SALINE LOCKED. PATIENT HAS BEEN CONFUSED AND TEARFUL AT TIMES WANTING HER FAMILY. MORTENSEN REMAINS TO DEPENDENT DRAIN IS STILL YELLOW/GREEN AND CLOUDY. PATIENT HAD A COUPLE STOOLS THIS SHIFT. PATIENT HAS BEEN TURNED ABOUT EVERY TWO HOURS. WILL CONTINUE TO MONITOR.
[2018-10-20 07:45] VITALS: BP 169/69
[2018-10-20 15:30] VITALS: BP 138/88
--- NOTE | 2018-10-20 18:31 | NUR ---
ASSUMED CARE OF PT AT 0700 THIS AM. PT IN BED RESTING WITH EYES CLOSED. DIALYSIS CALLED AND PT TRANSPORTED FOR DIALYSIS. 1/2 LITER TAKEN OFF PT PER DIALYSIS NURSE. PT HAS EATEN WELL THIS SHIFT. BG MONITORED AND NEEDED INSULIN THIS EVENING. PT WATCHING TELEVISION IN ROOM. CALL LIGHT IN REACH.
[2018-10-20 21:30] VITALS: BP 163/71
[2018-10-21 05:38] LABS: CALCIUM 7.6 mg/dL (8.5-10.1); CREATININE 2.3 mg/dL (0.6-1.3); MAGNESIUM 1.6 mg/dL (1.8-2.4); POTASSIUM 4.7 mmol/L (3.5-5.1)
--- NOTE | 2018-10-21 05:57 | NUR ---
PATIENT SLEPT MOST OF THE NIGHT. PATIENT HAD NO COMPLAINTS OF PAIN. MORTENSEN REMAINS TO DEPENDENT DRAIN. WILL CONTINUE TO MONITOR.
[2018-10-21 07:40] VITALS: BP 178/89
[2018-10-21 16:58] VITALS: BP 175/85
--- NOTE | 2018-10-21 17:33 | NUR ---
PATIENT RESTING IN BED. PATIENT HAD COMPLAINTS OF PAIN X 1 THIS AM, TREATED ADEQUATELY WITH TRAMADOL. PATIENT HAS GOOD APPETITE. PATIENT HAD MORTENSEN CATHETER REMOVED. PATIENT DENIES ANY NEEDS AT THIS TIME. CALL LIGHT WITHIN REACH. BED ALARM ON. WILL CONTINUE TO MONITOR.
[2018-10-21 20:15] VITALS: BP 184/85
[2018-10-22 04:32] LABS: HEMATOCRIT 22.7 % (37.0-47.0); HEMOGLOBIN 7.5 gm/dL (12.0-15.0); MCH 31.7 pg (26.0-34.0); MCHC 33.2 g/dL (28.0-37.0); MCV 95.3 fL (80.0-100.0); MPV 9.5 fl. (7.2-11.1); RBC 2.38 mil/uL (4.20-5.00); RDW-CV 17.1 % (10.5-14.5); WBC 6.6 thou/uL (4.0-11.0)
[2018-10-22 04:49] LABS: MAGNESIUM 1.8 mg/dL (1.8-2.4); POTASSIUM 5.4 mmol/L (3.5-5.1)
[2018-10-22 05:45] VITALS: BP 163/63
--- NOTE | 2018-10-22 06:33 | NUR ---
PATIENT SLEPT PART OF THE NIGHT. PATIENT WAS GIVEN PAIN MEDICINE ONCE THIS SHIFT. PATIENT HAS NOT VOIDED THIS SHIFT BUT BLADDER SCAN IS ONLY SHOWING ABOUT 270. WILL CONTINUE TO MONITOR.
[2018-10-22 08:20] VITALS: BP 178/67
--- NOTE | 2018-10-22 10:49 | CON ---
[facility] [address] [place] [address] CONSULTATION Name: JACIELERIN LILIAM Room: [address] IN M.R.#: [id number] Admission: 10/18/18 Attend Phys: Srinath Reynolds MD Discharge: Date of : 59 Report #: [id number] THIS REPORT FOR: //name// CC: ELDER Reynolds Physician staff REQUESTING PHYSICIAN: Srinath Reynolds M.D. REASON FOR CONSULTATION: Assist in providing dialysis. HISTORY OF PRESENT ILLNESS: The patient is a 63-year-old female well known to us. She was recently discharged from the hospital. She does have end-stage renal disease, coronary artery disease, and peripheral artery disease. She is admitted with increased somnolence and lethargy. The patient was evaluated in the Emergency Room and was diagnosed with urinary tract infection, admitted with diagnosis of lethargy due to urosepsis. PAST MEDICAL HISTORY: 1. Coronary artery disease. 2. Peripheral artery disease. 3. End-stage renal disease. 4. History of hypertension. 5. Recurrent UTI. 6. Failure to thrive. SOCIAL HISTORY: No current tobacco or alcohol abuse. FAMILY HISTORY: No history of renal disease. REVIEW OF SYSTEMS: Showed lethargic, follows just simple commands and answer simple questions. Denies fever or chills. Denies chest pain. PHYSICAL EXAMINATION: GENERAL: Lethargic. VITAL SIGNS: Blood pressure is 176/84, heart rate 79, afebrile. HEENT: Pupils round. NECK: Supple. LUNGS: Decreased air movements bilaterally. CARDIOVASCULAR: Regular rate. ABDOMEN: Soft. LOWER EXTREMITIES: No edema. LABORATORY DATA: Significant for potassium of 5.9, BUN 35, creatinine 6.2. [address] [address] CONSULTATION Name: JACIELERIN RICKETTS Room: [address]#: [id number] Admission: 10/18/18 Attend Phys: Srinath Reynolds MD Discharge: Date of : 59 Report #: [id number] ASSESSMENT: 1. End-stage renal disease. 2. Hyperkalemia. 3. Peripheral artery disease. 4. Urinary tract infection. 5. Coronary artery disease. PLAN: 1. Dialysis today due to hyperkalemia. 2. Antibiotics for UTI. Overall, long-term prognosis is quite guarded because she has been here many months and she is still working to get to the level where she can have reasonable quality of life. Thank you very much. <ELECTRONICALLY SIGNED> By: Ranjit Parks MD 10/22/18 1049 1143 0059Adc Parks MD /PMT
--- NOTE | 2018-10-22 11:56 | NUR ---
SW spoke with pt authorized contact/pt son's fiance, Ann Marie, to discuss safe dc planning and SW provided support. Ann Marie expressed concern for pt to dc without her UTI cleared but if pt had to leave on meds for continuing to treat UTI, then Ann Marie did not want pt returning to [facility] (for fear that they would not provide pt medications as needed as Ann Marie said she has heard and read accounts of pt missing medications) and instead would prefer [facility]. SW to provide referral to [facility] as soon as pt is ready/stable for dc and SW will continue to follow to assist with safe dc planning.
[2018-10-22 16:06] VITALS: BP 157/66
--- NOTE | 2018-10-22 16:13 | NUR ---
PATIENT TURNED Q2. DRESSING TO COCCYX REMAINS INTACT. IV ZYVOX X 1 FOR URINE CULTURE, PATIENT TO HAVE PO ZYVOX TONIGHT ORDERED. PATIENT WORKING WITH PT THIS AFTERNOON AND BEGAN VOMITING. DR. DOYLE NOTIFIED FOR PRN ZOFRAN AND GIVEN ORDERED. PATIENT BP NOTED TO BE HIGH AT THIS TIME, PRN HYDRALAZINE GIVEN. BP DOWN AFTER GIVEN THIS EVENING. NO INUSLIN REQUIRED THIS SHIFT.
[2018-10-22 20:15] VITALS: BP 179/67
[2018-10-23 00:55] VITALS: BP 181/72
[2018-10-23 05:20] LABS: HEMATOCRIT 21.6 % (37.0-47.0); HEMOGLOBIN 7.1 gm/dL (12.0-15.0); MCH 31.4 pg (26.0-34.0); MCHC 33.1 g/dL (28.0-37.0); MPV 9.3 fl. (7.2-11.1); RBC 2.27 mil/uL (4.20-5.00); RDW-CV 17.1 % (10.5-14.5); WBC 8.5 thou/uL (4.0-11.0)
--- NOTE | 2018-10-23 05:24 | NUR ---
PT SLEPT ON AND OFF THIS SHIFT. ASSESSMENT DOCUMENTED. MEDS GIVEN PER E-AUG. IV PATENT. PRN BP MEDS GIVEN PER E-AUG. NO REPORTS OF PAIN THIS SHIFT. PT RESQUESTING MULTIPLE SNACKS THIS SHIFT. WILL CONTINUE WITH PLAN OF CARE.
[2018-10-23 05:37] LABS: CALCIUM 8.2 mg/dL (8.5-10.1); MAGNESIUM 1.9 mg/dL (1.8-2.4)
[2018-10-23 05:44] LABS: CREATININE 5.2 mg/dL (0.6-1.3)
[2018-10-23 05:45] LABS: POTASSIUM 6.3 mmol/L (3.5-5.1)
[2018-10-23 05:55] VITALS: BP 168/63
[2018-10-23 08:00] VITALS: BP 168/78
[2018-10-23 10:07] VITALS: BP 168/78
--- NOTE | 2018-10-23 10:10 | NUR ---
WOUND CARE NOTE: ATTMEPTED TO SEE PT, CURRENTLY IN DIALYSIS. WILL ATTEMPT TO SEE LATER.
--- NOTE | 2018-10-23 14:04 | NUR ---
SW faxed referral to pt/family preference of [facility] in preparation for pt dc possibly soon. SW to continue to follow to assist with safe dc planning/placement.
--- NOTE | 2018-10-23 16:23 | NUR ---
PATIENT HAD DIALYSIS THIS AM, 1 1/2L REMOVED. VITALS STABLE AFTER DIALYSIS CHARTED. TURNED Q2. INCONTINENT OF BOWEL AND BLADDER. PRN TRAMADOL X1 GIVEN FOR RIGHT LEG PAIN, PATIENT OBSERVED TO BE SLEEPING AFTER GIVEN. PENDING DISCHARGE BACK TO SNF.
[2018-10-23 17:15] VITALS: BP 161/59
[2018-10-23 19:45] VITALS: BP 174/63
[2018-10-24] VITALS: BP 154/54
[2018-10-24 05:03] LABS: HEMATOCRIT 22.3 % (37.0-47.0); HEMOGLOBIN 7.4 gm/dL (12.0-15.0); MCH 31.8 pg (26.0-34.0); MCHC 33.3 g/dL (28.0-37.0); MCV 95.6 fL (80.0-100.0); MPV 9.6 fl. (7.2-11.1); RBC 2.33 mil/uL (4.20-5.00); WBC 7.2 thou/uL (4.0-11.0)
[2018-10-24 05:06] LABS: MAGNESIUM 1.7 mg/dL (1.8-2.4)
[2018-10-24 05:19] LABS: CREATININE 3.1 mg/dL (0.6-1.3); POTASSIUM 4.6 mmol/L (3.5-5.1)
--- NOTE | 2018-10-24 05:44 | NUR ---
ASSUMED CARE AT 2300. ALERT AND ORIENTED. C/O PAIN TO RIGHT LEG. TRAMADOL GIVEN X 2 THIS SHIFT. TAKES PILLS WHOLE IN PUDDING. SLEPT LITTLE OFF AND ON. 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 DRESSING TO COCCYX INTACT. TURN Q 2 HRS. NO ISSSUES OVERNIGHT. CALL LIGHT IN REACH.
[2018-10-24 08:00] VITALS: BP 160/53
[2018-10-24 09:55] VITALS: BP 122/48
--- NOTE | 2018-10-24 14:43 | NUR ---
KELP GATHERER ATTEMPTED TO CONTACT ADMISSIONS AT [facility] TO DISCUSS INSURANCE AUTH AND ABILITY TO ACCEPT THE PATIENT AT D/C. D/C SURFACING TECHNICIAN SPOKE TO THE D.O.N. AND SHE INFORMS THAT '[facility] HAS NOT RETURNED', SO 'THERE IS NO ONE CURRENTLY AVAILABLE TO WORK ON AUTH'. SHE 'PLANNED TO HAVE ANOTHER FACILITY WORK ON THE FINANCIAL PIECE', BUT WAS ALSO NOT SURE WHEN THIS COULD BE DONE. D/C SURFACING TECHNICIAN SPOKE TO THE PATIENT'S SON AND HIS SIGNIFICANT OTHER TO INFORM THAT THE PATIENT WOUDL BE CLOSE TO D/C AND THAT IT WOULD BE BEST IF A NEW FACILITY COULD BE CHOSEN. PATIENT'S SON AND SIGNIFICANT OTHER INFORM THAT THEY WOULD JUST 'PREFER THAT THE PATIENT RETURNS TO [facility]'. D/C SURFACING TECHNICIAN SPOKE TO JOANNE AT [facility] ADMISSIONS TO INFORM THAT THE PATIENT MAY BE READY TO D/C IN THE NEXT DAY OR SO, AND FAXED SKILLED REFERRAL. CM WILL REMAIN AVAILABLE TO ASSIST AND FOLLOW NEEDED. IRIS (PT'S SON'S SIG O.) [phone]
[2018-10-24 17:36] VITALS: BP 153/58
[2018-10-24 19:45] VITALS: BP 173/59
--- NOTE | 2018-10-24 19:54 | NUR ---
PT IS ALERT AND ORIENTED X 2-3. ISOLATION PRECAUTIONS MAINTAINED. IV PATENT. PATIENT DENIES PAIN AND NAUSEA EARLY IN SHIFT. TEMPORARY PORT IN RIGHT CHEST. FISTULA IN KAYE. PATIENT USES AN IMMOBILIZER TO RIGHT LEG WHEN UP. UP WITH THERAPIES DURING THE DAY. DRESSING CHANGE DONE @ 1530, ADMINISTERED TRAMADOL FOR PAIN IN EVENING. HOURLY ROUNDS MAINTAINED. CALL LIGHT WITHIN REACH.
[2018-10-25 04:00] VITALS: BP 172/62
[2018-10-25 05:20] LABS: HEMATOCRIT 22.6 % (37.0-47.0); HEMOGLOBIN 7.4 gm/dL (12.0-15.0); MCH 31.5 pg (26.0-34.0); MCHC 32.9 g/dL (28.0-37.0); MCV 95.7 fL (80.0-100.0); MPV 9.3 fl. (7.2-11.1); RBC 2.36 mil/uL (4.20-5.00); RDW-CV 16.5 % (10.5-14.5); WBC 6.8 thou/uL (4.0-11.0)
--- NOTE | 2018-10-25 05:33 | NUR ---
PT SLEPT MOST OF SHIFT. ASSESSMENT DOCUMENTED. MEDS GIVEN PER E-MAR. IV PATENT. NO REPORTS OF PAIN THIS SHIFT. PT REPOSITIONED THORUGH SHIFT. WILL CONTINUE WITH PLAN OF CARE.
[2018-10-25 05:37] LABS: ALBUMIN 2.3 g/dL (3.4-5.0); CALCIUM 8.1 mg/dL (8.5-10.1); MAGNESIUM 1.8 mg/dL (1.8-2.4); PHOSPHORUS* 3.1 mg/dL (2.5-4.9)
[2018-10-25 05:39] LABS: POTASSIUM 5.7 mmol/L (3.5-5.1)
[2018-10-25 07:50] VITALS: BP 115/66
--- NOTE | 2018-10-25 13:28 | NUR ---
CHARI called Lupe Israel with [facility] who reported that [facility] received authorization and transportation scheduled for after dialysis, 7:30 pm cloth picker time. CHARI faxed final orders and med list to [facility] through Lupe Israel at fax [phone]. CHARI called pt son's christiano Jesus with no answer so CHARI left detailed message about dc plan. Pt nurse aware and chart was copied for continuation of care.
[2018-10-25] MEDS ORDERED: MELATONIN5 M1 PO (16:05)
[2018-10-25] MEDS ORDERED: PROMETHAZINE12.5 M1 PO (16:06)
[2018-10-25] MEDS ORDERED: ZYVOX600 MG PO (16:07)
[2018-10-25 16:08] VITALS: BP 168/78
--- NOTE | 2018-10-25 19:45 | NUR ---
PATIENT DISCHARGED TO [facility]. REPORT CALLED TO [facility]. [place] REMOVD. COPY OF CHART AND DISCHARGE PAPERS GIVEN TO TRANSPORTER. PATIENT BELONGINGS PACKED AND GIVEN TO TRANSPORTER. PATIENT LEFT AT THIS TIME.
== END 2018-10-25 19:45 | DRG 871 ==
LOC: M.ERS 06:48 → M.TBA-ER 08:01 → M.ERS 08:01 → M.3W 08:01 → M.TBA-ER 16:22 → M.3W 16:22
PROVIDERS: Emergency Medicine; Family Medicine; ADMIT Internal Medicine
PROC: 5A1D70Z Performance of Urinary Filtration, Intermittent, Less than 6 Hours Per Day (ICD-10-PCS; principal; 2018-10-19)
PROC: 5A1D70Z Performance of Urinary Filtration, Intermittent, Less than 6 Hours Per Day (ICD-10-PCS; 2018-10-23)
PROC: 5A1D70Z Performance of Urinary Filtration, Intermittent, Less than 6 Hours Per Day (ICD-10-PCS; 2018-10-25)
DX: A41.9 Sepsis, unspecified organism (principal); G92 Toxic encephalopathy; N18.6 End stage renal disease; N39.0 Urinary tract infection, site not specified; I50.32 Chronic diastolic (congestive) heart failure; N25.81 Secondary hyperparathyroidism of renal origin; I13.2 Hypertensive heart and chronic kidney disease with heart failure and with stage 5 chronic kidney disease, or end stage renal disease; I25.10 Atherosclerotic heart disease of native coronary artery without angina pectoris; H54.7 Unspecified visual loss; E11.51 Type 2 diabetes mellitus with diabetic peripheral angiopathy without gangrene; E11.22 Type 2 diabetes mellitus with diabetic chronic kidney disease; F32.9 Major depressive disorder, single episode, unspecified; I48.91 Unspecified atrial fibrillation; E87.5 Hyperkalemia; E11.43 Type 2 diabetes mellitus with diabetic autonomic (poly)neuropathy; K31.84 Gastroparesis; R62.7 Adult failure to thrive; D63.8 Anemia in other chronic diseases classified elsewhere; E83.39 Other disorders of phosphorus metabolism; Z16.21 Resistance to vancomycin; Z90.710 Acquired absence of both cervix and uterus; Z95.1 Presence of aortocoronary bypass graft; Z95.820 Peripheral vascular angioplasty status with implants and grafts; Z89.512 Acquired absence of left leg below knee; Z87.81 Personal history of (healed) traumatic fracture; Z82.49 Family history of ischemic heart disease and other diseases of the circulatory system; Z68.30 Body mass index [BMI] 30.0-30.9, adult; Z79.4 Long term (current) use of insulin

== ENCOUNTER → 2018-10-29 | Outpatient (CLI) | payer OTHER, MEDICAID ==
[~2018-10-29] MED LIST changes: +MELATONIN5 M1 PO; +PROMETHAZINE12.5 M1 PO; +ZYVOX600 MG PO
== END ==
LOC: M.WC 10:00
DX: E11.622 Type 2 diabetes mellitus with other skin ulcer (principal); L89.153 Pressure ulcer of sacral region, stage 3; L98.492 Non-pressure chronic ulcer of skin of other sites with fat layer exposed; L97.411 Non-pressure chronic ulcer of right heel and midfoot limited to breakdown of skin; I70.201 Unspecified atherosclerosis of native arteries of extremities, right leg; E11.51 Type 2 diabetes mellitus with diabetic peripheral angiopathy without gangrene; E11.36 Type 2 diabetes mellitus with diabetic cataract; E11.39 Type 2 diabetes mellitus with other diabetic ophthalmic complication; H40.9 Unspecified glaucoma; E11.40 Type 2 diabetes mellitus with diabetic neuropathy, unspecified; N18.6 End stage renal disease; E11.22 Type 2 diabetes mellitus with diabetic chronic kidney disease; I50.9 Heart failure, unspecified; H54.61 Unqualified visual loss, right eye, normal vision left eye; I48.91 Unspecified atrial fibrillation; I25.10 Atherosclerotic heart disease of native coronary artery without angina pectoris; K21.9 Gastro-esophageal reflux disease without esophagitis; F32.9 Major depressive disorder, single episode, unspecified; Z95.1 Presence of aortocoronary bypass graft; Z90.710 Acquired absence of both cervix and uterus; Z89.512 Acquired absence of left leg below knee; Z99.2 Dependence on renal dialysis

== ENCOUNTER 2018-10-31 14:26 | Emergency (ER) | payer OTHER, MEDICAID ==
[~2018-10-31] VITALS: Ht 162.6 cm; Wt 55.8 kg
[2018-10-31 15:22] LABS: ABSOLUTE BASOPHILS 0.1 thou/uL (0.0-0.2); ABSOLUTE EOSINOPHILS 0.3 thou/uL (0.0-0.7); ABSOLUTE LYMPHOCYTES 1.5 thou/uL (0.8-5.3); ABSOLUTE MONOCYTES 0.9 thou/uL (0.0-1.2); ABSOLUTE NEUTROPHILS 6.5 thou/uL (1.6-8.1); BASOPHILS 0.9 %; EOSINOPHILS 3.3 %; HEMATOCRIT 25.9 % (37.0-47.0); HEMOGLOBIN 8.6 gm/dL (12.0-15.0); LYMPHOCYTES 16.2 %; MCH 32.1 pg (26.0-34.0); MCHC 33.3 g/dL (28.0-37.0); MCV 96.4 fL (80.0-100.0); MONOCYTES 9.7 %; MPV 8.8 fl. (7.2-11.1); NUCLEATED RBCS 0 /100WBC; PLATELET COUNT* 264 thou/uL (150-400); POLYS 69.9 %; RBC 2.68 mil/uL (4.20-5.00); RDW-CV 16.9 % (10.5-14.5); WBC 9.2 thou/uL (4.0-11.0)
[2018-10-31 15:32] LABS: CALCIUM 8.5 mg/dL (8.5-10.1); CREATININE 3.2 mg/dL (0.6-1.3); POTASSIUM 4.6 mmol/L (3.5-5.1)
[2018-10-31 18:05] VITALS: BP 200/97
== END 2018-10-31 18:08 | disposition home or self-care (01) ==
LOC: M.ERS 14:26
PROVIDERS: Nurse Practitioner
DX: D64.9 Anemia, unspecified (principal); I25.10 Atherosclerotic heart disease of native coronary artery without angina pectoris; I13.2 Hypertensive heart and chronic kidney disease with heart failure and with stage 5 chronic kidney disease, or end stage renal disease; E11.22 Type 2 diabetes mellitus with diabetic chronic kidney disease; N18.6 End stage renal disease; I50.32 Chronic diastolic (congestive) heart failure; E11.43 Type 2 diabetes mellitus with diabetic autonomic (poly)neuropathy; K31.84 Gastroparesis; I48.91 Unspecified atrial fibrillation; F32.9 Major depressive disorder, single episode, unspecified; Z90.710 Acquired absence of both cervix and uterus; Z99.2 Dependence on renal dialysis; Z79.4 Long term (current) use of insulin; Z95.1 Presence of aortocoronary bypass graft

== ENCOUNTER → 2018-11-05 | Outpatient (CLI) | payer OTHER, MEDICAID | LOC: M.WC 09:44 | DX: E11.622 Type 2 diabetes mellitus with other skin ulcer (principal); L89.153 Pressure ulcer of sacral region, stage 3; L98.492 Non-pressure chronic ulcer of skin of other sites with fat layer exposed; I70.201 Unspecified atherosclerosis of native arteries of extremities, right leg; E11.36 Type 2 diabetes mellitus with diabetic cataract; E11.39 Type 2 diabetes mellitus with other diabetic ophthalmic complication; H40.9 Unspecified glaucoma; E11.22 Type 2 diabetes mellitus with diabetic chronic kidney disease; N18.6 End stage renal disease; E11.51 Type 2 diabetes mellitus with diabetic peripheral angiopathy without gangrene; H54.61 Unqualified visual loss, right eye, normal vision left eye; I48.91 Unspecified atrial fibrillation; I50.9 Heart failure, unspecified; F32.9 Major depressive disorder, single episode, unspecified; Z99.2 Dependence on renal dialysis; Z89.512 Acquired absence of left leg below knee ==

== ENCOUNTER → 2018-11-19 | Outpatient (CLI) | payer OTHER, MEDICAID | LOC: M.WC 11-12 00:55 | DX: E11.622 Type 2 diabetes mellitus with other skin ulcer (principal); L89.153 Pressure ulcer of sacral region, stage 3; L98.491 Non-pressure chronic ulcer of skin of other sites limited to breakdown of skin; E11.51 Type 2 diabetes mellitus with diabetic peripheral angiopathy without gangrene; E11.36 Type 2 diabetes mellitus with diabetic cataract; E11.39 Type 2 diabetes mellitus with other diabetic ophthalmic complication; H40.9 Unspecified glaucoma; H42 Glaucoma in diseases classified elsewhere; I48.91 Unspecified atrial fibrillation; E11.22 Type 2 diabetes mellitus with diabetic chronic kidney disease; N18.6 End stage renal disease; I50.9 Heart failure, unspecified; F32.9 Major depressive disorder, single episode, unspecified; Z99.2 Dependence on renal dialysis ==

== ENCOUNTER → 2018-12-03 | Outpatient (CLI) | payer OTHER, MEDICAID | LOC: M.WC 01:12 | DX: E11.622 Type 2 diabetes mellitus with other skin ulcer (principal); L89.153 Pressure ulcer of sacral region, stage 3; L98.492 Non-pressure chronic ulcer of skin of other sites with fat layer exposed; I70.201 Unspecified atherosclerosis of native arteries of extremities, right leg; E11.51 Type 2 diabetes mellitus with diabetic peripheral angiopathy without gangrene; E11.36 Type 2 diabetes mellitus with diabetic cataract; E11.39 Type 2 diabetes mellitus with other diabetic ophthalmic complication; H40.9 Unspecified glaucoma; E11.22 Type 2 diabetes mellitus with diabetic chronic kidney disease; I50.9 Heart failure, unspecified; N18.6 End stage renal disease; H54.61 Unqualified visual loss, right eye, normal vision left eye; I48.91 Unspecified atrial fibrillation; F32.9 Major depressive disorder, single episode, unspecified; Z99.2 Dependence on renal dialysis; Z89.522 Acquired absence of left knee ==

== ENCOUNTER → 2018-12-17 | Outpatient (CLI) | payer OTHER, MEDICAID | LOC: M.WC 00:35 | DX: E11.622 Type 2 diabetes mellitus with other skin ulcer (principal); L89.153 Pressure ulcer of sacral region, stage 3; L98.491 Non-pressure chronic ulcer of skin of other sites limited to breakdown of skin; I70.201 Unspecified atherosclerosis of native arteries of extremities, right leg; E11.36 Type 2 diabetes mellitus with diabetic cataract; E11.39 Type 2 diabetes mellitus with other diabetic ophthalmic complication; H40.9 Unspecified glaucoma; E11.22 Type 2 diabetes mellitus with diabetic chronic kidney disease; N18.6 End stage renal disease; E11.51 Type 2 diabetes mellitus with diabetic peripheral angiopathy without gangrene; H54.61 Unqualified visual loss, right eye, normal vision left eye; I48.91 Unspecified atrial fibrillation; I50.9 Heart failure, unspecified; F32.9 Major depressive disorder, single episode, unspecified; Z89.512 Acquired absence of left leg below knee; Z99.2 Dependence on renal dialysis ==

== ENCOUNTER → 2019-01-14 | Outpatient (CLI) | payer OTHER, MEDICAID | LOC: M.WC 04:30 | DX: E11.622 Type 2 diabetes mellitus with other skin ulcer (principal); L89.153 Pressure ulcer of sacral region, stage 3; I70.201 Unspecified atherosclerosis of native arteries of extremities, right leg; E11.36 Type 2 diabetes mellitus with diabetic cataract; E11.51 Type 2 diabetes mellitus with diabetic peripheral angiopathy without gangrene; E11.39 Type 2 diabetes mellitus with other diabetic ophthalmic complication; H40.9 Unspecified glaucoma; E11.22 Type 2 diabetes mellitus with diabetic chronic kidney disease; N18.6 End stage renal disease; I50.9 Heart failure, unspecified; I48.91 Unspecified atrial fibrillation; H54.61 Unqualified visual loss, right eye, normal vision left eye; F32.9 Major depressive disorder, single episode, unspecified; Z99.2 Dependence on renal dialysis; Z89.512 Acquired absence of left leg below knee ==

== ENCOUNTER → 2019-01-21 | Outpatient (CLI) | payer OTHER, MEDICAID | LOC: M.WC 04:58 | DX: E11.622 Type 2 diabetes mellitus with other skin ulcer (principal); L89.153 Pressure ulcer of sacral region, stage 3; L98.491 Non-pressure chronic ulcer of skin of other sites limited to breakdown of skin; E11.51 Type 2 diabetes mellitus with diabetic peripheral angiopathy without gangrene; E11.36 Type 2 diabetes mellitus with diabetic cataract; E11.39 Type 2 diabetes mellitus with other diabetic ophthalmic complication; H40.9 Unspecified glaucoma; H42 Glaucoma in diseases classified elsewhere; E11.22 Type 2 diabetes mellitus with diabetic chronic kidney disease; N18.6 End stage renal disease; I48.91 Unspecified atrial fibrillation; I50.9 Heart failure, unspecified; H54.40 Blindness, one eye, unspecified eye; F32.9 Major depressive disorder, single episode, unspecified; Z99.2 Dependence on renal dialysis ==

== ENCOUNTER → 2019-02-11 | Outpatient (CLI) | payer OTHER, MEDICAID | LOC: M.WC 01-28 01:37 | DX: E11.622 Type 2 diabetes mellitus with other skin ulcer (principal); L89.153 Pressure ulcer of sacral region, stage 3; L98.492 Non-pressure chronic ulcer of skin of other sites with fat layer exposed; L84 Corns and callosities; I70.201 Unspecified atherosclerosis of native arteries of extremities, right leg; E11.36 Type 2 diabetes mellitus with diabetic cataract; E11.39 Type 2 diabetes mellitus with other diabetic ophthalmic complication; H40.9 Unspecified glaucoma; E11.22 Type 2 diabetes mellitus with diabetic chronic kidney disease; N18.6 End stage renal disease; E11.51 Type 2 diabetes mellitus with diabetic peripheral angiopathy without gangrene; H54.61 Unqualified visual loss, right eye, normal vision left eye; I48.91 Unspecified atrial fibrillation; I50.9 Heart failure, unspecified; F32.9 Major depressive disorder, single episode, unspecified; Z99.2 Dependence on renal dialysis; Z89.522 Acquired absence of left knee ==

== ENCOUNTER → 2019-02-18 | Outpatient (CLI) | payer OTHER, MEDICAID | LOC: M.WC 00:17 | DX: E11.622 Type 2 diabetes mellitus with other skin ulcer (principal); L89.153 Pressure ulcer of sacral region, stage 3; L98.491 Non-pressure chronic ulcer of skin of other sites limited to breakdown of skin; I70.201 Unspecified atherosclerosis of native arteries of extremities, right leg; E11.51 Type 2 diabetes mellitus with diabetic peripheral angiopathy without gangrene; E11.22 Type 2 diabetes mellitus with diabetic chronic kidney disease; N18.6 End stage renal disease; E11.36 Type 2 diabetes mellitus with diabetic cataract; E11.39 Type 2 diabetes mellitus with other diabetic ophthalmic complication; H40.9 Unspecified glaucoma; H54.61 Unqualified visual loss, right eye, normal vision left eye; I48.91 Unspecified atrial fibrillation; I50.9 Heart failure, unspecified; F32.9 Major depressive disorder, single episode, unspecified; Z89.512 Acquired absence of left leg below knee; Z99.2 Dependence on renal dialysis ==

== ENCOUNTER → 2019-02-25 | Outpatient (CLI) | payer OTHER, MEDICAID | LOC: M.WC 07:24 | DX: E11.622 Type 2 diabetes mellitus with other skin ulcer (principal); L89.153 Pressure ulcer of sacral region, stage 3; L98.491 Non-pressure chronic ulcer of skin of other sites limited to breakdown of skin; E11.36 Type 2 diabetes mellitus with diabetic cataract; E11.39 Type 2 diabetes mellitus with other diabetic ophthalmic complication; H40.9 Unspecified glaucoma; H42 Glaucoma in diseases classified elsewhere; E11.22 Type 2 diabetes mellitus with diabetic chronic kidney disease; I13.2 Hypertensive heart and chronic kidney disease with heart failure and with stage 5 chronic kidney disease, or end stage renal disease; N18.6 End stage renal disease; I50.9 Heart failure, unspecified; E11.51 Type 2 diabetes mellitus with diabetic peripheral angiopathy without gangrene; I48.91 Unspecified atrial fibrillation; H54.40 Blindness, one eye, unspecified eye; F32.9 Major depressive disorder, single episode, unspecified; Z99.2 Dependence on renal dialysis ==

== ENCOUNTER 2019-03-16 14:18 | Inpatient (IN) | payer OTHER, MEDICAID ==
[~2019-03-16] VITALS: Ht 162.6 cm; Wt 47.6 kg
[2019-03-16 14:22] VITALS: BP 164/54
[2019-03-16] MEDS ORDERED: ATIVAN0.5 MG PO (14:27)
[2019-03-16] MEDS ORDERED: RENAL CAPS SOFTG1 MG PO (14:29)
[2019-03-16] MEDS ORDERED: RENVELA800 MG PO (14:30)
[2019-03-16 14:58] LABS: ABSOLUTE BASOPHILS 0.1 thou/uL (0.0-0.2); ABSOLUTE EOSINOPHILS 0.1 thou/uL (0.0-0.7); ABSOLUTE LYMPHOCYTES 0.7 thou/uL (0.8-5.3); ABSOLUTE MONOCYTES 0.6 thou/uL (0.0-1.2); ABSOLUTE NEUTROPHILS 4.5 thou/uL (1.6-8.1); BASOPHILS 0.9 %; EOSINOPHILS 2.2 %; HEMATOCRIT 37.5 % (37.0-47.0); HEMOGLOBIN 12.2 gm/dL (12.0-15.0); LYMPHOCYTES 12.3 %; MCH 31.2 pg (26.0-34.0); MCHC 32.6 g/dL (28.0-37.0); MCV 95.8 fL (80.0-100.0); MONOCYTES 9.9 %; MPV 9.4 fl. (7.2-11.1); NUCLEATED RBCS 0 /100WBC; PLATELET COUNT* 201 thou/uL (150-400); POLYS 74.7 %; RBC 3.91 mil/uL (4.20-5.00); RDW-CV 18.8 % (10.5-14.5)
[2019-03-16 15:10] LABS: ANION GAP 8 mmol/L (7-16); BUN 20 mg/dL (7-18); CALCIUM 8.9 mg/dL (8.5-10.1); CHLORIDE 95 mmol/L (98-107); CO2 33 mmol/L (21-32); CREATININE 2.7 mg/dL (0.6-1.3); GLUCOSE 149 mg/dL (70-99); POTASSIUM 3.4 mmol/L (3.5-5.1); SODIUM 136 mmol/L (136-145)
[2019-03-16 15:13] LABS: APTT 27.9 Seconds (25.0-31.3); INR 1.1; PROTIME 11.4 Seconds (9.20-11.50)
[2019-03-16 15:27] LABS: ALBUMIN 3.2 g/dL (3.4-5.0); ALKALINE PHOSPHATASE 233 U/L (46-116); NT-PRO BRAIN NAT PEPTIDE > 35000 pg/mL (<300); SGOT 16 U/L (15-37); SGPT 16 U/L (30-65); TOTAL BILIRUBIN 0.6 mg/dL (<0.1-1.0); TOTAL PROTEIN 7.2 g/dL (6.4-8.2); TROPONIN-I LEVEL <0.06 ng/mL (<0.06)
--- NOTE | 2019-03-16 16:22 | NUR ---
PT PLACED ON INPATIENT BED AT THIS TIME
[2019-03-16 18:52] VITALS: BP 140/50
[2019-03-16 19:00] VITALS: BP 145/60
[2019-03-16 20:38] VITALS: BP 164/51
[2019-03-17] VITALS: BP 145/71
[2019-03-17 04:00] VITALS: BP 132/45
[2019-03-17 05:33] LABS: ALBUMIN 2.6 g/dL (3.4-5.0); CALCIUM 8.2 mg/dL (8.5-10.1); CREATININE 3.6 mg/dL (0.6-1.3); POTASSIUM 3.3 mmol/L (3.5-5.1)
--- NOTE | 2019-03-17 07:57 | NUR ---
PT ARRIVED TO ROOM 203 DURING DAY SHIFT ON 03/16, HOWEVER, PT ADMITTED TO FLOOR DURING SHIRT TURNER. 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 PT PRESENTS HAVING SOME DEPRESSION WELL SOME COGNITIVE ISSUES, BUT IS A+OX4. CURRENT PAIN MEDICATION REGIMEN HAS BEEN ADEQUATE FOR CONTROLLING HER PAIN UP TO THIS TIME. SHE IS CURRENTLY FOLLOWING A MON//MON SCHEDULE FOR HEMODIALYSIS; RIGHT UPPER ARM FISTULA IS POSITIVE FOR T+B. NEPHROLOGY FOLLOWING.
[2019-03-17 08:00] VITALS: BP 141/51
--- NOTE | 2019-03-17 10:47 | EKG ---
[place] [address] ELECTROCARDIOGRAM REPORT Name: ERIN GRISSOM Room: [address] ADM IN M.R.#: [id number] Admission: 03/16/19 Attend Phys: Chuck Disla MD Discharge: Date of : 59 Report #: [id number] THIS REPORT FOR: //name// [facility] ED Test Date: 2019-03-16 Test Time: 14:33:31 Pat Name: ERIN GRISSOM Department: Room: [facility] Gender: F Desolderer: : 1955 Requested By: Lorne Moyer Order Number: [id number] MD: Curt Starr Measurements Intervals [place] Rate: 60 P: 80 DE: 215 QRS: 108 QRSD: 101 T: -60 QT: 517 QTc: 517 Interpretive Statements Sinus rhythm Borderline prolonged DE interval Left posterior fascicular block Anterior infarct, old possible Borderline repolarization abnormality Prolonged QT interval Compared to ECG 10/18/2018 07:13:32 Left posterior fascicular block now present Atrial fibrillation no longer present Myocardial infarct finding still present Electronically Signed On 03-17-2019 10:47:21 CDT by Curt Starr [email or web address] <ELECTRONICALLY SIGNED> By: Curt Starr MD, [facility] 03/17/19 1047 1433 1433 Curt Starr MD, [facility] /EPI
[2019-03-17 11:27] VITALS: BP 161/50
--- NOTE | 2019-03-17 16:33 | NUR ---
PT RESTING IN BED THROUGHOUT SHIFT. PT DROWSY AND FALLING ASLEEP DURING CONVERSATION. NSR ON MONITOR. TOLERATING PO WELL. PAIN WELL CONTROLLED WITH TRAMADOL
[2019-03-17 20:00] VITALS: BP 158/60
--- NOTE | 2019-03-18 01:26 | NUR ---
PT GIVEN ENSURE, PUDDING AND JUICE AFTER BLOOD SUGAR OF 47. RECHECK BLOOD SUGAR 177. PT INCONTINENT OF URINE AND STOOL. CALL LIGHT IN REACH. HOURLY ROUNDING FOR SAFETY.
[2019-03-18 04:00] VITALS: BP 167/74
[2019-03-18 05:03] LABS: CALCIUM 8.3 mg/dL (8.5-10.1); MAGNESIUM 2.2 mg/dL (1.8-2.4)
[2019-03-18 09:00] VITALS: BP 164/67
--- NOTE | 2019-03-18 11:52 | NUR ---
Pt is A&O. Known to this CM from previous hospital stays. Pt is a LTC resident at [facility] and will dc back there today, faxed initial referral. Pt is wc bound. Current at [facility] on a schedule. [facility] with [facility]. 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 CM to updated Pt's son. Following.
[2019-03-18] MEDS ORDERED: TRAMADOL 50 MG50 MG PO (11:56)
[2019-03-18] MEDS ORDERED: CYMBALTA20 MG PO (11:56)
[2019-03-18] MEDS ORDERED: PANTOPRAZOLE SO40 M1 PO (11:57)
[2019-03-18] MEDS ORDERED: DOK PLUS TABLE1 EACH PO (11:57)
[2019-03-18] MEDS ORDERED: RENVELA800 MG PO (11:57)
[2019-03-18] MEDS ORDERED: ROCALTROL0.25 MCG PO (11:58)
[2019-03-18] MEDS ORDERED: HUMALOG100 UNIT/1 SUBQ (11:58)
[2019-03-18] MEDS ORDERED: MELATONIN5 M1 PO (11:59)
[2019-03-18] MEDS ORDERED: LIDOPATCH1 EACH TOP (12:01)
--- NOTE | 2019-03-18 12:58 | NUR ---
Nutrition: Consult for wt change. Per [facility], pt usually weighs 120-130#. Current wt is 105#. Pt was eating lunch in bed, 12:50. H/o afib, ESRD on HD at [facility], DM I, CHF. RD has seen pt before for diet education. Na 135, BUN 50, cr 5, GFR 9, albumin 2.6, prealbumin 17.3, BG 179. Chopped diet. Pt discharging back to LTC this afternoon. No nutrition interventions needed at this time. Mild risk.
[2019-03-18 14:34] VITALS: BP 164/67
--- NOTE | 2019-03-18 15:33 | NUR ---
PT ORDERS RECEIVED AND ACKNOWLEDGED. PT PREPARING FOR DISCHARGE BACK TO SNF. PER OTR NOTES PT IS DEPENDENT STATUS AT SNF WITH [facility] FOR TRANSFERS. UNABLE TO PROVIDE PT EVAL AND INTERVENTIONS 2/2 PT PREPARING FOR DISCHARGE.
--- NOTE | 2019-03-18 16:10 | NUR ---
I ASSUMED CARE OF THE PATIENT AT 0700. SHE IS ALERT AND ORIENTED X4 AND IS ON BEDREST. BED IS IN THE LOW LOCKED POSITION AND CALL LIGHT IS IN REACH. HOURLY ROUNDING WAS COMPLETED AND PATIENT NEEDS WERE MET. PAIN IS MANAGED WITH PRN MEDS. PATIENT IS PROGRESSING TOWARD HER GOALS AND IS READY TO GO BACK TO THE [facility]. REPORT WAS CALLED TO [facility] AND [facility] TRANSPORTED HER AND HER BELONGINGS BACK AT 1555.
[2019-03-18 16:11] VITALS: BP 164/67
--- NOTE | 2019-03-25 14:33 | CON ---
[address] [address] CONSULTATION Name: JACIELERIN GUNTER Room: [address] IN M.R.#: [id number] Admission: 03/16/19 Attend Phys: Chuck Disla MD Discharge: 03/18/19 Date of : 59 Report #: [id number] THIS REPORT FOR: //name// CC: Jonnie Yesika Disla DATE OF SERVICE: 03/17/2019 CONSULTING PHYSICIAN: Chuck Disla MD REASON FOR CONSULTATION: End-stage kidney disease. HISTORY OF PRESENT ILLNESS: A 63-year-old female who was admitted with intractable pain in the right harden. She had dialysis yesterday, but was taken off dialysis about an hour early and completed a 3-hour treatment per her report. She does not have any shortness of breath, no chest pain, no complaints at present time, and looks to be very comfortable. REVIEW OF SYSTEMS: Constitutional, psych, heme, eyes, ENT, respiratory, cardiac, GI, , endocrine, all negative except as documented above. PAST MEDICAL HISTORY: End-stage kidney disease, on hemodialysis; type 1 diabetes; blind in the right eye; peripheral vascular disease with history of stenting in the lower extremities; coronary artery disease; history of 4-vessel CABG; hysterectomy; depression; history of diastolic heart failure; AFib; history of hip fracture; and a left BKA in 2016. CURRENT MEDICATIONS: Reviewed. SOCIAL HISTORY: No tobacco. FAMILY HISTORY: Not pertinent in this 63-year-old female. PHYSICAL EXAMINATION: VITAL SIGNS: Blood pressure is 141/50, pulse 79, respirations 20, temperature 36.6. GENERAL: No acute distress. EYES: Open. EARS: Externally normal. NECK: Supple. CARDIOVASCULAR: Regular rate. LUNGS: No crackles. ABDOMEN: Soft. MUSCULOSKELETAL: Tender along the harden. She has a BKA. PSYCHIATRIC: Awake, [place] [address] CONSULTATION Name: ERIN GRISSOM Room: [address]#: [id number] Admission: 03/16/19 Attend Phys: Chuck Disla MD Discharge: 03/18/19 Date of : 59 Report #: [id number] LABORATORY DATA: White cell count 6, hemoglobin 12.2, platelets 201. Sodium 137, potassium 3.3, chloride 97, bicarbonate 28, BUN 29, creatinine 3.6, glucose 116, calcium 8.2, albumin 2.6, phosphorus 4. ASSESSMENT: 1. End-stage kidney disease, hemodialysis Tuesdays, , Saturdays at the [facility]. 2. Hypertension. 3. Secondary hyperparathyroidism, on phosphate binders. 4. Insulin-dependent diabetes. PLAN: 1. No acute indications for dialysis today. We will continue maintenance dialysis. 2. Hypokalemia. We will give a small supplement to replace the potassium. We will follow along for dialysis needs. Thank you for requesting my opinion in the care and management of this patient. <ELECTRONICALLY SIGNED> By: Latoya Wyatt MD 03/25/19 1433 1150 [id number] Wyatt MD /nt
== END 2019-03-18 15:55 | DRG 553 ==
LOC: M.ERS 14:18 → M.TBA-ER 15:52 → M.2W 15:52
PROVIDERS: Family Medicine; ADMIT Family Medicine
DX: M81.0 Age-related osteoporosis without current pathological fracture (principal); N18.6 End stage renal disease; I13.2 Hypertensive heart and chronic kidney disease with heart failure and with stage 5 chronic kidney disease, or end stage renal disease; I50.32 Chronic diastolic (congestive) heart failure; D68.59 Other primary thrombophilia; M79.661 Pain in right lower leg; I48.91 Unspecified atrial fibrillation; E10.22 Type 1 diabetes mellitus with diabetic chronic kidney disease; E21.3 Hyperparathyroidism, unspecified; F32.9 Major depressive disorder, single episode, unspecified; F41.9 Anxiety disorder, unspecified; G24.9 Dystonia, unspecified; K59.09 Other constipation; E10.51 Type 1 diabetes mellitus with diabetic peripheral angiopathy without gangrene; I25.10 Atherosclerotic heart disease of native coronary artery without angina pectoris; Z95.1 Presence of aortocoronary bypass graft; Z99.2 Dependence on renal dialysis; Z79.899 Other long term (current) drug therapy; Z79.4 Long term (current) use of insulin; Z90.710 Acquired absence of both cervix and uterus

== ENCOUNTER 2019-04-29 10:11 | Inpatient (IN) | payer OTHER, MEDICAID ==
[~2019-04-29] VITALS: Ht 157.5 cm; Wt 59.8 kg
[2019-04-29] VITALS (21 sets, daily range): BP systolic 74–136; BP diastolic 48–73
--- NOTE | ~2019-04-29 | CON ---
[address] [address] CONSULTATION Name: ERIN GRISSOM Room: [address] IN ..#: [id number] Admission: 04/29/19 Attend Phys: Heather Bermeo MD Discharge: Date of : 59 Report #: [id number] THIS REPORT FOR: //name// CC: Lesley Napoles DATE OF SERVICE: 05/03/2019 I am seeing this patient at the request of Dr. Reynolds. CHIEF COMPLAINT: Left buttock pressure ulcer. HISTORY OF PRESENT ILLNESS: This is a 63-year-old woman who was admitted 3 days ago for altered mental status, metabolic encephalopathy, acute on chronic diastolic heart failure. She has been in the Intensive Care Unit. She has a chronic left buttock pressure ulcer. This has not been debrided recently. She is currently in the ICU. She denies any complaints. She is not answering any questions, however. PAST MEDICAL HISTORY: Hypertension, hyperlipidemia, coronary artery disease, diabetes mellitus, end-stage renal disease. PAST SURGICAL HISTORY: She has had a hysterectomy, CABG, bilateral lower extremity stenting. SOCIAL HISTORY: No tobacco or alcohol use. She lives in a shelter. ALLERGIES: NKDA. MEDICATIONS: Reviewed and listed in the chart. REVIEW OF SYSTEMS: Unobtainable as the patient does not wish to participate in the interview. PHYSICAL EXAMINATION: VITAL SIGNS: Temperature 37.0, pulse 87, blood pressure 146/84. GENERAL: She is awake, but does not respond to questions. HEENT: Extraocular movements intact. Sclerae without icterus. NECK: Supple. CARDIOVASCULAR: Regular rhythm. CHEST: Fair movement bilaterally. ABDOMEN: Examination of the left hip demonstrates an approximately 8 x 8 cm eschar in the left buttock. EXTREMITIES: Without clubbing or cyanosis. NEUROLOGIC: [place] [address] CONSULTATION Name: ERIN GRISSOM Room: [address] IN [facility]#: [id number] Admission: 04/29/19 Attend Phys: Heather Bermeo MD Discharge: Date of : 59 Report #: [id number] SKIN: Without rash or jaundice. LABORATORY FINDINGS: White blood cell count 27.4, hemoglobin 12.8. ASSESSMENT AND PLAN: A 63-year-old woman with a left buttock pressure ulcer. This will require debridement. Unfortunately this should be done in the OR given the size of the lesion and the fact that I think a bone biopsy would be needed. I will plan for OR debridement under general anesthesia. In the meantime, I think an MRI of the pelvis would be advisable as this would be able to identify osteomyelitis in the pelvis. We will follow along closely with you. Thank you for asking me to take part in the care of this patient. By: 1656 [id number] Narayan MD /mac
[~2019-04-29 10:11] MED LIST changes: +ATIVAN0.5 M1 PO; +CYMBALTA20 MG PO; +DOK PLUS TABLE1 EACH PO; +LIDOPATCH1 EACH TOP; +RENVELA800 MG PO; +ROCALTROL0.25 MCG PO
[2019-04-29] MEDS ORDERED: NOVOLOG100 UNIT/1 SUBQ (11:19)
[2019-04-29] MEDS ORDERED: MORPHINE SULFAT15 M3 PO (11:21)
[2019-04-29] MEDS ORDERED: PHOSLO667 MG PO (11:21)
[2019-04-29 11:46] LABS: ABSOLUTE BASOPHILS 0.1 thou/uL (0.0-0.2); ABSOLUTE LYMPHOCYTES 0.5 thou/uL (0.8-5.3); ABSOLUTE MONOCYTES 0.4 thou/uL (0.0-1.2); ABSOLUTE NEUTROPHILS 21.1 thou/uL (1.6-8.1); BASOPHILS 0.3 %; EOSINOPHILS 0.2 %; HEMOGLOBIN 11.8 gm/dL (12.0-15.0); LYMPHOCYTES 2.2 %; MCH 31.7 pg (26.0-34.0); MCHC 31.9 g/dL (28.0-37.0); MCV 99.1 fL (80.0-100.0); MONOCYTES 1.9 %; NUCLEATED RBCS 0 /100WBC; PLATELET COUNT* 274 thou/uL (150-400); POLYS 95.4 %; RBC 3.73 mil/uL (4.20-5.00); RDW-CV 18.8 % (10.5-14.5); WBC 22.2 thou/uL (4.0-11.0)
[2019-04-29 11:53] LABS: ANION GAP 17 mmol/L (7-16); BUN 70 mg/dL (7-18); CHLORIDE 93 mmol/L (98-107); CO2 24 mmol/L (21-32); CREATININE 9.9 mg/dL (0.6-1.3); GLUCOSE 160 mg/dL (70-99); POTASSIUM 5.4 mmol/L (3.5-5.1); SODIUM 134 mmol/L (136-145)
[2019-04-29 11:54] LABS: APTT 27.9 Seconds (25.0-31.3); INR 1.1; PROTIME 11.7 Seconds (9.20-11.50)
[2019-04-29 12:04] LABS: ALBUMIN 2.5 g/dL (3.4-5.0); ALKALINE PHOSPHATASE 245 U/L (46-116); NT-PRO BRAIN NAT PEPTIDE > 35000 pg/mL (<300); SGOT 46 U/L (15-37); SGPT 29 U/L (30-65); TOTAL BILIRUBIN 0.9 mg/dL (<0.1-1.0); TOTAL PROTEIN 7.2 g/dL (6.4-8.2)
[2019-04-29 12:22] LABS: PLATELET ESTIMATE ADEQUATE
[2019-04-29 12:24] LABS: ANISOCYTOSIS 1+; POIKILOCYTOSIS 1+
[2019-04-29 13:21] LABS: BE -2.6 mmol/L (-2 to +3); PCO2 40.1 mmHg (35.0-45.0); pH 7.367 (7.340-7.450)
[2019-04-29 13:25] LABS: PO2 142.9 mmHg (75.0-100.0)
[2019-04-29 13:49] LABS: URINE BILIRUBIN NEGATIVE (Negative); URINE BLOOD 2+ (Negative); URINE CLARITY CLOUDY; URINE COLOR YELLOW; URINE GLUCOSE-RANDOM NEGATIVE (Negative); URINE KETONES NEGATIVE (Negative); URINE NITRITE-REFLEX NEGATIVE (Negative); URINE PROTEIN 3+ (Negative); URINE UROBILINOGEN 0.2 E.U./dl (0.2-1.0)
[2019-04-29 13:50] LABS: SQUAMOUS NONE SEEN /LPF (0-3); URINE LEUKOCYTES-REFLEX 2+ (Negative)
[2019-04-29 13:51] LABS: BACTERIA-REFLEX >30 Many /HPF (None Seen); CASTS None Seen /LPF (None Seen); CRYSTALS None Seen /LPF (None Seen); URINE RBC >20 Many /HPF (0-2); URINE WBC-REFLEX >25 Many /HPF (0-5)
--- NOTE | 2019-04-29 18:07 | EKG ---
[place] [address] ELECTROCARDIOGRAM REPORT Name: JACIELERIN LILIAM Room: [address] ADM IN M.R.#: [id number] Admission: 04/29/19 Attend Phys: Heather Bermeo MD Discharge: Date of : 59 Report #: [id number] THIS REPORT FOR: //name// [facility] ED Test Date: 2019-04-29 Test Time: 11:21:25 Pat Name: ERIN GRISSOM Department: Room: [facility] Gender: F Historian Research Assistant: EV : 1955 Requested By: Shawn Leonardo Order Number: [id number] MD: Trevor Beck Measurements Intervals [place] Rate: 103 P: TX: QRS: 91 QRSD: 114 T: 246 QT: 362 QTc: 474 Interpretive Statements Atrial fibrillation Left posterior fascicular block Anterior infarct, old Borderline repolarization abnormality Compared to ECG 03/16/2019 14:33:31 Sinus rhythm no longer present Prolonged QT interval no longer present Myocardial infarct finding still present Electronically Signed On 04-29-2019 18:07:23 CDT by Trevor Beck [email or web address] <ELECTRONICALLY SIGNED> By: Trevor Beck MD, FACC 04/29/19 1807 1121 1121 Trevor Beck MD, [facility] /EPI
[2019-04-29 18:09] LABS: BE 0.4 mmol/L (-2 to +3); PCO2 47.4 mmHg (35.0-45.0); pH 7.361 (7.340-7.450)
[2019-04-29 18:12] LABS: PO2 171.2 mmHg (75.0-100.0)
[2019-04-30] VITALS (29 sets, daily range): BP systolic 98–182; BP diastolic 21–80
[2019-04-30 03:36] LABS: HEMATOCRIT 32.3 % (37.0-47.0); HEMOGLOBIN 10.2 gm/dL (12.0-15.0); MCH 31.3 pg (26.0-34.0); MCHC 31.4 g/dL (28.0-37.0); MCV 99.4 fL (80.0-100.0); MPV 8.7 fl. (7.2-11.1); RBC 3.25 mil/uL (4.20-5.00); RDW-CV 18.8 % (10.5-14.5); WBC 23.5 thou/uL (4.0-11.0)
[2019-04-30 03:53] LABS: ALBUMIN 2.5 g/dL (3.4-5.0); MAGNESIUM 2.2 mg/dL (1.8-2.4); TOTAL PROTEIN 6.5 g/dL (6.4-8.2)
[2019-04-30 03:57] LABS: POTASSIUM 4.1 mmol/L (3.5-5.1)
[2019-04-30 05:44] LABS: BE 0.3 mmol/L (-2 to +3); PO2 90.4 mmHg (75.0-100.0); pH 7.335 (7.340-7.450)
[2019-04-30 05:47] LABS: PCO2 51.3 mmHg (35.0-45.0)
--- NOTE | 2019-04-30 16:33 | CON ---
[address] [address] CONSULTATION Name: ERIN GRISSOM Room: [address] ADM IN M.R.#: [id number] Admission: 04/29/19 Attend Phys: Heather Bermeo MD Discharge: Date of : 59 Report #: [id number] THIS REPORT FOR: //name// CC: Lesley Nietoh [facility] REQUESTING PHYSICIAN: Heather Bermeo MD REASON FOR CONSULTATION: Acute respiratory failure, on BiPAP. DISCUSSION: The patient is a 63-year-old woman, nonsmoker. She has a history of end-stage renal disease and is on chronic hemodialysis. Apparently, however, she declined to go to dialysis and missed her last couple of treatments. She presented to the Emergency Department yesterday. Was getting more short of breath and had some increased congestion. She is also followed for some chronic skin wounds. She has a history of coronary artery disease. She was evaluated in the ED. Was placed on BiPAP. Was emergently dialyzed last night. Was kept on BiPAP. FiO2 has been weaned down. Dialysis was started again this morning. Intermittently has been receiving some albumin with hopes to try and remove some more fluid. She is not very responsive. Is awake enough, she is nodding and shaking her head to some questions. She has been hemodynamically stable, has not required any pressors overnight. Has been empirically placed on antibiotics as well. She has not had any fevers, in fact has been a little hypothermic. Blood cultures are positive. PAST MEDICAL HISTORY: Remarkable for the end-stage renal disease, on chronic hemodialysis. Known coronary artery disease. Had coronary artery bypass grafting surgery in the past. Diabetes mellitus type 2 with retinopathy, blind in at least one eye, hypertension, anemia, prior hysterectomy, GERD with esophagitis, repair of tibial fracture, osteomyelitis. HOME MEDICATIONS: Have been aspirin, Cozaar, isosorbide, hydralazine, atorvastatin, amiodarone, Plavix, gabapentin, Cymbalta, Renvela, calcium acetate. Not clear how compliant she has been with this regimen at home. SOCIAL HISTORY: Nonsmoker. I believe she has a caregiver. FAMILY HISTORY: Unable to obtain from the patient given her condition. Old records indicate it is positive for heart disease and cancers. REVIEW OF SYSTEMS: Difficult to get from the patient given her condition. Is arousable. Is denying pain at this time. Somewhat restless. Is following some simple commands. Otherwise, really [place] [address] CONSULTATION Name: ERIN GRISSOM Room: [address] IN [facility].#: [id number] Admission: 04/29/19 Attend Phys: Heather Bermeo MD Discharge: Date of : 59 Report #: [id number] PHYSICAL EXAMINATION: GENERAL APPEARANCE: Chronically ill-appearing woman, looks much older than stated age. Currently, is on the BiPAP with SpO2 in the high 90s. Is on dialysis. Is somewhat restless. She is not overly tachycardic. HEENT: Mucous membranes do look dry. NECK: Negative for adenopathy. No supraclavicular adenopathy. HEART: Tones are somewhat distant given her condition. Irregularly irregular. No S3 is heard. LUNGS: Do reveal some crackles and rhonchi heard. Excursion is equal. No wheezing. ABDOMEN: Soft. EXTREMITIES: Does have fistula, right upper extremity. Does have some ecchymotic areas noted on her legs. SCDs in place. SKIN: Warm and dry. Turgor is fair to poor. NEUROLOGIC: Difficult to ascertain since she is on the BiPAP, but is arousable, spontaneously moving all extremities. LABORATORY AND X-RAY FINDINGS: Chest x-ray shows evidence of prior median sternotomy. Pulmonary vascular congestion. It is really unchanged on this morning's film. Arterial blood gases done earlier this morning on the BiPAP, she had a pH of 7.34, pCO2 of 51, pO2 of 90, bicarbonate of 27 with a saturation of 27%. On her chemistry this morning, potassium is 4.1, serum bicarbonate is 27, BUN of 26, creatinine of 5.0. Yesterday, her creatinine was 9.9 prior to undergoing dialysis. Transaminase unremarkable. Alkaline phosphatase mildly elevated at 200. Albumin 2.5. White blood cell count 23,500, hemoglobin 10.2, hematocrit of 32.3, platelets 214,000. Coags studies unremarkable. Urine did show many white cells and red blood cells. Leukocyte esterase was positive. Urine culture is pending. At least of one out of two blood cultures are growing Gram-negative rods. Followup blood cultures have been requested. IMPRESSION: 1. Acute respiratory failure, due primarily to volume overload. Has been noncompliant with her dialysis as of late. Overall, does appear to be improving clinically, though x-ray really has not changed. 2. Gram-negative bacteremia. Suspect may be from urinary tract infection. Given skin wounds that she has had, that could also be a potential source. 3. End-stage renal disease. Unfortunately, has not been overly compliant with her dialysis. 4. Diabetes mellitus type 2. 5. Coronary artery disease, status post coronary artery bypass grafting surgery. 6. Anemia. 7. Leukocytosis, most likely related to her infection. RECOMMENDATIONS: [address] [place] [address] CONSULTATION Name: ERIN GRISSOM Room: [address] ADM IN M.R.#: [id number] Admission: 04/29/19 Attend Phys: Heather Bermeo MD Discharge: Date of : 59 Report #: [id number] 1. We will have a complete today's run of dialysis. Anticipate should be able to try switching over to nasal cannula and check tolerance. If she is stable, may consider moving out of the ICU and to telemetry. 2. Continue with broad-spectrum antibiotics. Follow up per ID. 3. Continue neb treatments. 4. Given her history of noncompliance and issues, may need to address code status and actual goals of care. It does appear that her prognosis is guarded. <ELECTRONICALLY SIGNED> By: Nicci Tapia MD 04/30/19 1633 1051 1200Nicci Tapia MD /nt
--- NOTE | 2019-04-30 18:36 | CON ---
[address] [address] CONSULTATION Name: ERIN GRISSOM Room: [address] ADM IN M.R.#: [id number] Admission: 04/29/19 Attend Phys: Heather Bermeo MD Discharge: Date of : 59 Report #: [id number] THIS REPORT FOR: //name// CC: Lesley Thomasnath [facility] DATE OF SERVICE: 04/30/2019 NEPHROLOGY CONSULTATION CONSULTING PHYSICIAN: Heather Bermeo MD REASON FOR NEPHROLOGY CONSULTATION: End-stage renal disease. She missed hemodialysis. REASON FOR ADMISSION: The patient was sent over from her Wound Center because of shortness of breath. HISTORY OF PRESENT ILLNESS: The patient is a 63-year-old female with past medical history of end-stage renal disease, on hemodialysis every Monday, , and Monday. She missed dialysis on and Monday because of really unknown reasons. She went to the [facility]ound [facility] yesterday. She went to the Wound Clinic because of multiple decubitus wounds, but she was sent over to the ER because she was having shortness of breath and in the ER, she had decreased responsiveness and she was found to have evidence of fluid on her chest x-ray. She was urgently dialyzed yesterday evening and she was again seen on dialysis this morning. She is currently on BiPAP. She was minimally responsive. She is not following commands at this point. Her blood pressure has been fluctuating. It did drop during dialysis and she needed albumin. Her urine looks like it is showing evidence of UTI and a blood culture is also growing Gram-negative rods and she also has evidence of leukocytosis and she has been started on antibiotics in the form of ceftriaxone. Infectious Disease has also been contacted. ALLERGIES: No known allergies. REVIEW OF SYSTEMS: Please refer to history of present illness. Otherwise, it is limited because of her mental status. HOME MEDICATIONS: According to the patient's records, they include Plavix, gabapentin, losartan, Imdur, atorvastatin, duloxetine, docusate, sevelamer, pantoprazole, melatonin. PAST MEDICAL AND SURGICAL HISTORY: Includes hysterectomy; coronary artery disease; CABG x 4; peripheral vascular disease; blindness in right eye; 30% [place] [address] CONSULTATION Name: ERIN GRISSOM Room: [address]#: [id number] Admission: 04/29/19 Attend Phys: Heather Bermeo MD Discharge: Date of : 59 Report #: [id number] vision in left eye; diabetes; hypertension; end-stage renal disease, on hemodialysis every Monday, , and Monday; left BKA; hip fracture; depression; chronic diastolic congestive heart failure; AFib, on Coumadin; gastroparesis; chronic UTI. FAMILY HISTORY: Heart disease and cancer. SOCIAL HISTORY: She does not smoke or drink alcohol or use illicit drugs according to the patient's chart. PHYSICAL EXAMINATION: VITAL SIGNS: Her temperature is 36.7. Her pulse rate was 107. Blood pressure is 127/55, respiratory rate marked as 11, and pulse ox was 98%. She was on 15 liters oxygen. She is on BiPAP. GENERAL: She is minimally responsive. She is on BiPAP. She was seen on dialysis. HEAD AND EYES: Atraumatic, normocephalic, and she has a BiPAP in place and normal conjunctivae. EARS, NOSE, AND THROAT: She has a BiPAP in place and mucous membranes are dry. NECK: JVD difficult to assess. CHEST: Bilateral coarse breath sounds anteriorly. No wheezing heard. CARDIOVASCULAR: S1, S2 normal. No murmurs. ABDOMEN: Soft, nondistended, nontender. Bowel sounds decreased. EXTREMITIES: Lower extremities: There is no lower extremity edema. NEUROLOGICAL FUNCTION: She is not very responsive. She does open her eyes, but that is about it, does not follow commands. PSYCHIATRIC: Cannot assess. LABORATORY DATA: Her white count was 22,000, today 24,000; hemoglobin is 10.2. Her potassium was 5.4, now 4.1. Her BUN is 26, was 70 yesterday and other labs were reviewed. IMAGING: Chest x-ray was reviewed. ASSESSMENT: 1. End-stage renal disease, on hemodialysis Monday, , and Monday. 2. She missed dialysis, fluid overload. 3. Lower tract urinary tract infection. 4. Positive blood cultures, Gram-negative rods. 5. Diabetes type 2. 6. Hypotension. Blood pressure has been running low. 7. History of atrial fibrillation. PLAN: 1. Antibiotics for UTI and sepsis as per ID and primary team. 2. We dialyzed her yesterday with dialysis again today and trying to remove as [address] [address] CONSULTATION Name: ERIN GRISSOM [facility] M.R.#: [id number] Admission: 04/29/19 Attend Phys: Heather Bermeo MD Discharge: Date of : 59 Report #: [id number] much as we can, but we limited in terms of fluid removal because of hypotension. 3. I have stopped her losartan as well as hydralazine to help with the blood pressure, although I am not even sure if she has been getting these medications here because she is not being very responsive. 4. Her hemoglobin is currently at goal, 10.2. I thank you for this consultation. We will continue to follow her for her dialysis needs. We will use albumin as needed for hypotension. <ELECTRONICALLY SIGNED> By: Basilia Uriostegui MD 04/30/19 1836 1017 [id number] Uriostegui MD /nt
[2019-05-01] VITALS (22 sets, daily range): BP systolic 122–206; BP diastolic 69–111
[2019-05-01 04:58] LABS: HEMATOCRIT 37.5 % (37.0-47.0); HEMOGLOBIN 11.4 gm/dL (12.0-15.0); MCHC 30.5 g/dL (28.0-37.0); MCV 101.6 fL (80.0-100.0); MPV 9.2 fl. (7.2-11.1); RBC 3.69 mil/uL (4.20-5.00); RDW-CV 19.2 % (10.5-14.5); WBC 21.4 thou/uL (4.0-11.0)
[2019-05-01 06:03] LABS: ALBUMIN 3.2 g/dL (3.4-5.0); CALCIUM 9.9 mg/dL (8.5-10.1); MAGNESIUM 2.4 mg/dL (1.8-2.4); POTASSIUM 4.2 mmol/L (3.5-5.1); TOTAL PROTEIN 7.4 g/dL (6.4-8.2)
[2019-05-01 06:04] LABS: CREATININE 3.7 mg/dL (0.6-1.3)
[2019-05-01 08:49] LABS: BE -5.3 mmol/L (-2 to +3); PCO2 30.8 mmHg (35.0-45.0); PO2 85.8 mmHg (75.0-100.0); pH 7.396 (7.340-7.450)
--- NOTE | 2019-05-01 11:23 | CON ---
[address] [address] CONSULTATION Name: ERIN GRISSOM Room: [address] IN M.R.#: [id number] Admission: 04/29/19 Attend Phys: Heather Bermeo MD Discharge: Date of : 59 Report #: [id number] THIS REPORT FOR: //name// CC: Lesley Nietoh [facility] DATE OF SERVICE: 04/30/2019 INFECTIOUS DISEASE CONSULTATION ATTENDING PHYSICIAN: Dr. Bermeo. REASON FOR EVALUATION: Gram-negative septicemia, likely due to a complicated urinary tract infection, specifically pyelonephritis. The patient has chronic wounds and respiratory failure. HISTORY OF PRESENT ILLNESS: Chart reviewed, the patient examined. This is a 63-year-old woman well known to myself. She has been hospitalized multiple times. She has diabetes mellitus with severe complications including diffuse vasculopathy; has severe cardiomyopathy; peripheral vascular disease; has diabetic retinopathy; also has end-stage renal disease, on dialysis; previous left below-knee amputation and frequent urinary tract infections. Chart reviewed, the patient examined. This is a 63-year-old woman with severe medical disease burden, who was being followed in [facility], referred for direct admission due to severe compromise her clinical status, evaluation noted. She was in multiorgan dysfunction, addition to her baseline. Blood cultures collected at time of admission, now with 2/2 growth of gram-negative rods. She is arousable, difficult to ascertain any specific details. Her initial chest x-ray was otherwise unremarkable. Lactic acid 1.5. CBC which showed an elevated white count of 22.2. Urinalysis did show marked pyuria as well as bacteriuria. ABGs: pH was 7.361 on 40%. She has been empirically started on antimicrobials, ceftriaxone and now on piperacillin and tazobactam. ALLERGIES: None known. MEDICATIONS: Include ceftriaxone, methylprednisolone, duloxetine, clopidogrel, isosorbide mononitrate, amiodarone, allopurinol, pantoprazole, ipratropium and albuterol inhaler, gabapentin, lorazepam, aspirin, atorvastatin. PAST MEDICAL HISTORY: As described above, diabetes mellitus complicated by diffuse vasculopathy; right eye blindness; hypertension; end-stage renal disease, on dialysis; left below-knee amputation; history of depression; cardiomyopathy with history of congestive heart failure; atrial fibrillation; gastroparesis; [place] [address] CONSULTATION Name: ERIN GRISSOM Room: [address]#: [id number] Admission: 04/29/19 Attend Phys: Heather Bermeo MD Discharge: Date of : 59 Report #: [id number] SOCIAL HISTORY: Nonsmoker, no ethanol, no illicit drug use. FAMILY HISTORY: Noncontributory. REVIEW OF SYSTEMS: Not obtainable. PHYSICAL EXAMINATION: GENERAL: She is barely arousable, is unable to engage. There is some verbal attempted speaking, which are incomprehensible. NECK: Supple. She is maintained on supplemental oxygen. LUNGS: Few scattered coarse breath sounds. HEART: Borderline tachycardic. I do not appreciate a murmur. ABDOMEN: Appears to be soft, mildly distended. There are no overt peritoneal signs. She is on dialysis. I could not examine her wounds at this point. GENITOURINARY: Deferred. RECTAL: Deferred. LABORATORY DATA: Most recent chest x-ray shows borderline heart size, pulmonary venous congestion, widespread interstitial infiltrates, likely edema. Blood cultures: Gram-negative rods, awaiting ID and susceptibilities. ABGs: pH of 7.335, pCO2 of 51.3, pO2 of 98.4 on BiPAP 30%. Prealbumin of 7.0. Electrolytes: Sodium 141, potassium 4.1, chloride 100, bicarbonate is 27, anion gap of 14, BUN and creatinine 26 and 5.0, albumin of 2.5, total protein of 6.5. CBC: White count of 23.5, H and H 10.2 and 32.3 and platelets of 214. Urinalysis greater than 25 white cells, greater than 30 bacteria. Lactic acid of 1.5. ASSESSMENT AND PLAN: Gram-negative septicemia, likely due to genitourinary tract source. The patient has chronic recurrent urinary tract infections. We will adjust antimicrobial therapy, certainly risk for multiple resistant organisms at this point. She does have multiorgan dysfunction as well, which would be consistent with overall lack of early ability to draw from any reserve. Prognosis appears quite guarded. <ELECTRONICALLY SIGNED> By: Raymundo Sinclair MD 05/01/19 1123 1117 [id number] Sinclair MD /nt
[2019-05-02] VITALS (36 sets, daily range): BP systolic 122–157; BP diastolic 61–99
[2019-05-03] VITALS (35 sets, daily range): BP systolic 123–167; BP diastolic 57–96
[2019-05-03 04:45] LABS: HEMATOCRIT 40.6 % (37.0-47.0); HEMOGLOBIN 12.8 gm/dL (12.0-15.0); MCH 31.2 pg (26.0-34.0); MCHC 31.4 g/dL (28.0-37.0); MCV 99.1 fL (80.0-100.0); MPV 9.6 fl. (7.2-11.1); RBC 4.09 mil/uL (4.20-5.00); RDW-CV 19.4 % (10.5-14.5); WBC 27.4 thou/uL (4.0-11.0)
[2019-05-03 05:09] LABS: ALBUMIN 2.9 g/dL (3.4-5.0); CALCIUM 9.3 mg/dL (8.5-10.1); CREATININE 3.7 mg/dL (0.6-1.3); MAGNESIUM 2.2 mg/dL (1.8-2.4); TOTAL BILIRUBIN 0.9 mg/dL (<0.1-1.0); TOTAL PROTEIN 7.2 g/dL (6.4-8.2)
[2019-05-04] VITALS (20 sets, daily range): BP systolic 129–172; BP diastolic 52–89
[2019-05-04 05:02] LABS: HEMATOCRIT 43.7 % (37.0-47.0); HEMOGLOBIN 13.8 gm/dL (12.0-15.0); MCH 31.2 pg (26.0-34.0); MCHC 31.6 g/dL (28.0-37.0); MCV 98.8 fL (80.0-100.0); RBC 4.42 mil/uL (4.20-5.00); RDW-CV 19.1 % (10.5-14.5)
[2019-05-04 05:47] LABS: POTASSIUM 4.5 mmol/L (3.5-5.1)
[2019-05-04 06:50] LABS: ALBUMIN 2.7 g/dL (3.4-5.0); CALCIUM 9.9 mg/dL (8.5-10.1); MAGNESIUM 2.4 mg/dL (1.8-2.4); TOTAL BILIRUBIN 0.9 mg/dL (<0.1-1.0); TOTAL PROTEIN 7.3 g/dL (6.4-8.2)
[2019-05-04 06:53] LABS: CREATININE 5.3 mg/dL (0.6-1.3)
[2019-05-05 04:00] VITALS: BP 148/77
[2019-05-05 05:18] LABS: ALBUMIN 2.3 g/dL (3.4-5.0); CALCIUM 8.6 mg/dL (8.5-10.1); MAGNESIUM 2.1 mg/dL (1.8-2.4); POTASSIUM 4.8 mmol/L (3.5-5.1); TOTAL BILIRUBIN 0.9 mg/dL (<0.1-1.0); TOTAL PROTEIN 6.5 g/dL (6.4-8.2)
[2019-05-05 08:00] VITALS: BP 161/88
[2019-05-05 12:15] VITALS: BP 138/93
[2019-05-05 19:05] VITALS: BP 115/57
[2019-05-05 20:00] VITALS: BP 140/69
[2019-05-06] VITALS: BP 128/62
[2019-05-06 04:00] VITALS: BP 154/89
[2019-05-06 04:50] LABS: HEMATOCRIT 41.7 % (37.0-47.0); MCH 30.8 pg (26.0-34.0); MCHC 31.1 g/dL (28.0-37.0); MPV 11.5 fl. (7.2-11.1); RBC 4.21 mil/uL (4.20-5.00); RDW-CV 19.5 % (10.5-14.5); WBC 30.1 thou/uL (4.0-11.0)
[2019-05-06 05:19] LABS: CALCIUM 8.4 mg/dL (8.5-10.1); MAGNESIUM 2.1 mg/dL (1.8-2.4); POTASSIUM 4.2 mmol/L (3.5-5.1)
[2019-05-06 05:23] LABS: CREATININE 5.2 mg/dL (0.6-1.3)
[2019-05-06 08:23] VITALS: BP 131/75
[2019-05-06 12:07] VITALS: BP 136/78
[2019-05-06] MEDS ORDERED: WELLBUTRIN 100100 MG PO (13:00)
[2019-05-06 14:22] VITALS: BP 136/78
== END 2019-05-06 15:55 | disposition hospice, home (50) | DRG 871 ==
LOC: M.ICU 12:20 → M.TBA-ER 12:20 → M.ICU 14:17 → M.2W 05-04 12:30
PROVIDERS: Emergency Medicine Emergency Medical Services; Internal Medicine; Internal Medicine Pulmonary Disease; ADMIT Internal Medicine
PROC: 5A1D70Z Performance of Urinary Filtration, Intermittent, Less than 6 Hours Per Day (ICD-10-PCS; principal; 2019-04-29)
PROC: 5A09357 Assistance with Respiratory Ventilation, Less than 24 Consecutive Hours, Continuous Positive Airway Pressure (ICD-10-PCS; principal; 2019-04-29)
PROC: 5A1D70Z Performance of Urinary Filtration, Intermittent, Less than 6 Hours Per Day (ICD-10-PCS; 2019-04-30)
PROC: 5A1D70Z Performance of Urinary Filtration, Intermittent, Less than 6 Hours Per Day (ICD-10-PCS; 2019-05-02)
PROC: 5A1D70Z Performance of Urinary Filtration, Intermittent, Less than 6 Hours Per Day (ICD-10-PCS; 2019-05-04)
DX: A41.59 Other Gram-negative sepsis (principal); N18.6 End stage renal disease; I50.33 Acute on chronic diastolic (congestive) heart failure; G93.41 Metabolic encephalopathy; J96.20 Acute and chronic respiratory failure, unspecified whether with hypoxia or hypercapnia; I13.2 Hypertensive heart and chronic kidney disease with heart failure and with stage 5 chronic kidney disease, or end stage renal disease; I42.9 Cardiomyopathy, unspecified; I48.20 Chronic atrial fibrillation, unspecified; N12 Tubulo-interstitial nephritis, not specified as acute or chronic; N39.0 Urinary tract infection, site not specified; I95.9 Hypotension, unspecified; E11.319 Type 2 diabetes mellitus with unspecified diabetic retinopathy without macular edema; K21.0 Gastro-esophageal reflux disease with esophagitis; L89.329 Pressure ulcer of left buttock, unspecified stage; G89.29 Other chronic pain; R62.7 Adult failure to thrive; Z66 Do not resuscitate; L89.150 Pressure ulcer of sacral region, unstageable; Z51.5 Encounter for palliative care; Z91.19 Patient's noncompliance with other medical treatment and regimen; I25.10 Atherosclerotic heart disease of native coronary artery without angina pectoris; E11.51 Type 2 diabetes mellitus with diabetic peripheral angiopathy without gangrene; H54.61 Unqualified visual loss, right eye, normal vision left eye; F32.9 Major depressive disorder, single episode, unspecified; E11.43 Type 2 diabetes mellitus with diabetic autonomic (poly)neuropathy; K31.84 Gastroparesis; Z53.29 Procedure and treatment not carried out because of patient's decision for other reasons; Z99.2 Dependence on renal dialysis; Z90.710 Acquired absence of both cervix and uterus; Z95.1 Presence of aortocoronary bypass graft; Z95.820 Peripheral vascular angioplasty status with implants and grafts; Z89.512 Acquired absence of left leg below knee; Z79.01 Long term (current) use of anticoagulants; Z79.899 Other long term (current) drug therapy; Z79.82 Long term (current) use of aspirin; Z79.4 Long term (current) use of insulin; Z79.02 Long term (current) use of antithrombotics/antiplatelets; Z80.8 Family history of malignant neoplasm of other organs or systems; Z82.49 Family history of ischemic heart disease and other diseases of the circulatory system; Z79.891 Long term (current) use of opiate analgesic; Z68.24 Body mass index [BMI] 24.0-24.9, adult

== ENCOUNTER 2019-05-09 12:01 | Inpatient (IN) | payer MEDICARE, MEDICAID ==
[~2019-05-09] VITALS: Ht 152.4 cm; Wt 57.3 kg
[2019-05-09] VITALS (10 sets, daily range): BP systolic 90–132; BP diastolic 49–67
[~2019-05-09 12:01] MED LIST changes: +MORPHINE SULFAT15 M3 PO; +WELLBUTRIN 100100 MG PO
[2019-05-09 12:46] LABS: APTT 23.6 Seconds (25.0-31.3); INR 1.1; PROTIME 11.5 Seconds (9.20-11.50)
[2019-05-09 13:02] LABS: CREATININE 5.5 mg/dL (0.6-1.3)
[2019-05-09 13:07] LABS: ALBUMIN 2.1 g/dL (3.4-5.0); CK-MB MASS 4.8 ng/mL (<0.5-3.6); TOTAL BILIRUBIN 0.6 mg/dL (<0.1-1.0); TOTAL PROTEIN 5.9 g/dL (6.4-8.2)
[2019-05-09 13:14] LABS: HEMATOCRIT 40.3 % (37.0-47.0); HEMOGLOBIN 12.8 gm/dL (12.0-15.0); MCH 30.9 pg (26.0-34.0); MCHC 31.7 g/dL (28.0-37.0); MCV 97.5 fL (80.0-100.0); MPV 12.4 fl. (7.2-11.1); NUCLEATED RBCS 0 /100WBC; PLATELET COUNT* 177 thou/uL (150-400); RBC 4.13 mil/uL (4.20-5.00); RDW-CV 18.4 % (10.5-14.5); WBC 29.6 thou/uL (4.0-11.0)
[2019-05-09 13:47] LABS: ABSOLUTE MONOCYTES 1.8 thou/uL (0.0-1.2)
[2019-05-09 13:51] LABS: TARGET CELLS 2+
[2019-05-09 13:52] LABS: MACROCYTES 2+
[2019-05-09 13:59] LABS: PLATELET ESTIMATE ADEQUATE; TOXIC GRANULATION 2+
[2019-05-09 14:00] LABS: ABSOLUTE NEUTROPHILS 28.4 thou/uL (1.6-8.1); METAMYELOCYTES 1 %; MYELOCYTES 1 %
--- NOTE | 2019-05-09 14:01 | EKG ---
[place] [address] ELECTROCARDIOGRAM REPORT Name: JACIELERIN GUNTER Room: [place] [address] ADM IN .R.#: [id number] Admission: 05/09/19 Attend Phys: Kyle Abbasi Discharge: Date of : 59 Report #: [id number] THIS REPORT FOR: //name// [facility] ED Test Date: 2019-05-09 Test Time: 12:27:06 Pat Name: ERIN GRISSOM Department: Room: [facility] Gender: F Barrel Handler: : 1955 Requested By: Lorne Moyer Order Number: [id number] MD: James Cerda Measurements Intervals [place] Rate: 85 P: TX: QRS: 91 QRSD: 96 T: 163 QT: 412 QTc: 490 Interpretive Statements Right and left arm electrode reversal, interpretation assumes no reversal Atrial fibrillation Anterior infarct, old, possible Borderline repolarization abnormality Baseline wander in lead(s) V5 Compared to ECG 04/29/2019 11:21:25 Left posterior fascicular block no longer present Myocardial infarct finding still present Electronically Signed On 05-09-2019 14:00:55 POLITICAL SCIENCE RESEARCH ASSISTANT by James Cerda [email or web address] <ELECTRONICALLY SIGNED> By: James Cerda MD, FACC 05/09/19 1400 1227 1227 James Cerda MD, FACC /EPI
[2019-05-09 14:26] LABS: URINE BILIRUBIN NEGATIVE (Negative); URINE BLOOD 2+ (Negative); URINE CLARITY CLEAR; URINE COLOR YELLOW; URINE GLUCOSE-RANDOM NEGATIVE (Negative); URINE KETONES NEGATIVE (Negative); URINE NITRITE-REFLEX NEGATIVE (Negative); URINE PROTEIN 2+ (Negative); URINE UROBILINOGEN 0.2 E.U./dl (0.2-1.0)
[2019-05-09 14:41] LABS: URINE LEUKOCYTES-REFLEX 3+ (Negative)
[2019-05-09 14:42] LABS: SQUAMOUS 4-10 Moderate /LPF (0-3); URINE RBC >20 Many /HPF (0-2); URINE WBC-REFLEX >25 Many /HPF (0-5)
[2019-05-09 14:43] LABS: CASTS None Seen /LPF (None Seen); CRYSTALS None Seen /LPF (None Seen)
--- NOTE | 2019-05-09 16:41 | NUR ---
Pt was d/c to [facility] ([place]) on 05/06 with [facility]. Apparently pt and son decided they did not want hospice and did not sign. Facility petitioned court for guardianship and pt had court hearing today. Awaiting determination by court if pt has had Public Rate Supervisor appointed as guardian.
--- NOTE | 2019-05-09 17:38 | NUR ---
RIGHT INTERNAL JUGULAR CENTRAL LINE PLACED AT THIS TIME BY DR MCKEON.
[2019-05-09 23:08] LABS: BE -1.7 mmol/L (-2 to +3); PO2 93.8 mmHg (75.0-100.0); pH 7.353 (7.340-7.450)
[2019-05-10] VITALS (75 sets, daily range): BP systolic 82–173; BP diastolic 47–80
[2019-05-10 04:50] LABS: HEMATOCRIT 37.5 % (37.0-47.0); HEMOGLOBIN 11.6 gm/dL (12.0-15.0); MCH 30.4 pg (26.0-34.0); MCHC 30.9 g/dL (28.0-37.0); MCV 98.3 fL (80.0-100.0); MPV 12.1 fl. (7.2-11.1); RBC 3.82 mil/uL (4.20-5.00); RDW-CV 18.5 % (10.5-14.5); WBC 31.4 thou/uL (4.0-11.0)
[2019-05-10 05:02] LABS: CREATININE 5.9 mg/dL (0.6-1.3); MAGNESIUM 1.9 mg/dL (1.8-2.4); PHOSPHORUS* 4.8 mg/dL (2.5-4.9); POTASSIUM 5.4 mmol/L (3.5-5.1)
--- NOTE | 2019-05-10 06:31 | NUR ---
ASSUMED CARE AT 1905H, ON NC AT 2LPM AND TOLERATED.PT HAD A LOW RESPIRATION AND SLEEP APNEA, ABG AND O2 SAT WAS FINE. PT NOW IS MORE AWAKE AND RESPONSIVE.SEEN WITH PLASTIC TUBE IN PATIENT'S VAGINA(?).LEVO MAINTAIN AT 2MIC/HR, TRIED TO DECREASE LEVO BUT BP KEEPS ON DROPPING.CONTINUE MONITORING AND TOWARD GOALS.PT LITTLE FEVERISH LATE THE SHIFT, SPONGE BATH GIVEN AND TEMP DECREASE.
--- NOTE | 2019-05-10 10:59 | NUR ---
ICU rounds: Pt on dialysis. Neuro consult pending. Levo gtt. Pressure ulcers, wound care following. CM spoke with Pt's admissions at [facility], guardianship was awarded yesterday, await the courts to send them a copy of the guardianship papers, liaison to fax to [facility] once received. Plan dc back to LTC with [facility] at sc. [facility] p:[phone] f:[phone] [facility] p:[phone]
--- NOTE | 2019-05-10 11:31 | NUR ---
PT ON DIALYSIS TREATMENT, RESPIRATIONS CONSISTENTLY 4-7 BPM. HR AFIB IN THE 110S-140S. BP 90S-110S SYSTOLIC ON LEVOPHED GTT, BEING ADJUSTED NEEDED PER ORDER. PAGED DR BAEZ AND INFORMED HIM OF PT RESPIRATIONS, ORDER FOR SOLUMEDROL RECEIVED.
--- NOTE | 2019-05-10 14:18 | NUR ---
WOUND CARE NOTE: CONSULT RECEIVED FOR PRESSURE ULCER PATIENT KNOWN TO ME FROM PREVIOUS HOSPITAL STAYS. JUST LEFT THE HOSPITAL 3 DAYS AGO. LEFT UPPER THIGH/ HIP, POSTERIOR: DTI/STAGE 1 PRESSURE ULCERS MULTIPLE. CLUSTERED THESE MEASURE 13X2.5. APPEAR TO BE IMPROVING FROM LAST ASSESSMENT. NO OPENINGS NOTED. APPLIED SKIN PREP TO THIS AREA AFTER CLEANSING WITH WOUND CLEANSER. LEFT ISCHIAL TUBEROSITY: UNSTAGEABLE PRESSURE ULCER MEASURING 6.7X6.5X0.3. BROWN, MOIST, SOFT ESCHAR TO 90% OF THE WOUND BED 5% RED, FRIABLE TISSUE TO WOUND EDGE SURROUNDED BY YELLOW, MOIST ESCHAR TO THE REMAINING 5%. ALEXANDR-WOUND IS RED, INDURATED, INFLAMMED. CREPITUS NOTED AT THE PROXIMAL ASPECT OF THE ALEXANDR-WOUND. WOUND DRAINING SMALL AMOUNTS OF SEROSANGUINEOUS DRAINAGE. FOUL ODOR NOTED. CLEANSED WITH WOUND CLEANSER. APPLIED SKIN PREP TO ALEXANDR-WOUND. APPLIED OPTIFOAM AG THEN SECURED WITH TEGADERM. SACRUM: UNSTAGEABLE PRESSURE ULCER MEASURING 5.1X2.8X1. WOUND BED IS DISCOLORED BROWN/PURPLE. UNABLE TO SEE WOUND BED. DISTAL ASPECT OF THE WOUND WITH PARTIAL THICKNESS BREAKDOWN. THIS IS PINK AND MOIST. ALEXANDR-WOUND WITH REDNESS THAT EXTENDS TO THE LEFT HIP. CLEANSED WITH WOUND CLEANSER. APPLIED SKIN PREP TO ALEXANDR-WOUND. APPLIED AQUACEL AG AND COVERED WITH BORDERED FOAM. PATIENT TOLERATED DRESSING CHANGE WELL, THERE WAS PAIN DURING THE CLEANSING OF THE WOUNDS. PATIENT IS UNABLE TO COMMUNICATE NEEDS TO ME AT THIS TIME, UNABLE TO EDUCATE PATIENT ON WOUND CARE AT THIS TIME. PATIENT IS ON HARRY MATTRESS AND IS TURNED TO HER RIGHT SIDE. RECOMMEND TURN Q2 HOURS-AVOID WOUNDS MUCH POSSIBLE. LIMIT HOB <30 DEGREES-ESPECIALLY WHEN ON BACK ENCOUARGE GOOD NUTRITION/HYDRATION ONCE ABLE TIGHT BLOOD GLUCOSE CONTROL LOW AIR LOSS MATTRESS-CURRENTLY ON, IF TRANSFERS OFF ICU ONE WILL NEED TO BE ORDERED
--- NOTE | 2019-05-10 14:36 | NUR ---
SPOKE TO MRI, THEY STATE IT IS UNSAFE TO DO MRI WITHOUT SCREENING BEING COMPLETED. PT IS UNABLE TO ANSWER SCREENING QUESTIONS FOR HERSELF AND HAS JUST BEEN APPOINTED A STATE GUARDIAN FOR ALL HEALTHCARE DECISIONS, SO FAMILY CAN'T BE CONTACTED FOR HEALTHCARE QUESTIONS, THEY MUST GO THROUGH GUARDIAN. PT IS ALSO ON LEVOPHED GTT WHICH WOULD HAVE TO BE STOPPED BEFORE WE COULD DO MRI. MRI CURRENTLY ON HOLD.
--- NOTE | 2019-05-10 17:46 | NUR ---
MRI CALLED, THEY ARE CANCELING MRI FOR NOW UNTIL PT IS ABLE TO BE OFF LEVOPHED AND GET QUESTIONARE FILLED OUT.
[2019-05-11] VITALS (63 sets, daily range): BP systolic 98–158; BP diastolic 52–69
--- NOTE | 2019-05-11 06:08 | NUR ---
VITALS STABLE, AFEBRILE. PT ABLE TO TELL ME SHE IS IN [place], OTHERWISE NOT ORIENTED. PT MOSTLY DROWSY/SLEEPING, VISIBLY SAD AND SOMETIMES CRYING WHEN AWAKE. TONGUE THRUSTING NOTED. NO UOP, BM THIS EVENING. Q2 TURNS FOR SKIN INTEGRITY.
[2019-05-11 07:48] LABS: HEMATOCRIT 36.2 % (37.0-47.0); HEMOGLOBIN 11.2 gm/dL (12.0-15.0); MCH 30.9 pg (26.0-34.0); MCHC 30.8 g/dL (28.0-37.0); MCV 100.3 fL (80.0-100.0); MPV 10.8 fl. (7.2-11.1); RBC 3.61 mil/uL (4.20-5.00); RDW-CV 18.6 % (10.5-14.5); WBC 26.4 thou/uL (4.0-11.0)
[2019-05-11 07:53] LABS: CALCIUM 7.6 mg/dL (8.5-10.1); POTASSIUM 5.3 mmol/L (3.5-5.1)
[2019-05-11 07:54] LABS: CREATININE 4.2 mg/dL (0.6-1.3)
--- NOTE | 2019-05-11 09:01 | NUR ---
ELVIE put copy of [facility] paper work on Pt's chart. Per nurse, when he contacted SAM's office about dc back to LTC with hospice, they do not handle those types of situations on the weekend, only request for emergent medical situations. Plan to continue to treat Pt over the weekend, with a dc back to LTC early next week.
--- NOTE | 2019-05-11 11:06 | NUR ---
SPOKE WITH [facility] AT THE REQUEST OF DR. KWAN. CLARIFYING THE PLAN MOVING FORWARD: THE PATIENT IS UNDER GUARDIANSHIP OF THE [facility] PUBLIC LABOR ECONOMICS PROFESSOR, THE PATIENT WILL NOT BE DISCHARGED OR PLACED ON HOSPICE CARE UNTIL AFTER THE WEEKEND WHEN THE LABOR ECONOMICS PROFESSOR WILL BE ABLE TO SIGN THE PAPERS APPROVING HOSPICE CARE. DR. KWAN IS IN AGREEMENT WITH THE PLAN.
--- NOTE | 2019-05-11 17:41 | NUR ---
ASSESSMENTS CHARTED. SEE PREVIOUS NOTE ON STATUS FOR DISCHARGE AND HOSPICE CARE. PATIENT NOT MAKING COMPREHENSIBLE SOUNDS OR WORDS. LITTLE RESPONSE FROM THE PATIENT. NO FLUIDS RUNNING AT THIS TIME. SPOKE WITH PHYSICIAN ABOUT PATIENT'S DIET. WILL START TPN TONIGHT. TURNS Q2H TO PREVENT FURTHER ULCERATION OF PATIENT'S WOUNDS.
[2019-05-12] VITALS (15 sets, daily range): BP systolic 116–142; BP diastolic 56–78
--- NOTE | 2019-05-12 04:39 | NUR ---
VITALS STABLE, AFEBRILE. PATIENT SLEPT THROUGH MOST OF THE NIGHT. NO UOP/BM. UNEVENTFUL NIGHT. Q2 TURNS FOR SKIN INTEGRITY.
[2019-05-12 08:55] LABS: ABSOLUTE BASOPHILS 0.1 thou/uL (0.0-0.2); ABSOLUTE LYMPHOCYTES 0.4 thou/uL (0.8-5.3); ABSOLUTE NEUTROPHILS 18.2 thou/uL (1.6-8.1); BASOPHILS 0.4 %; HEMATOCRIT 36.6 % (37.0-47.0); HEMOGLOBIN 11.3 gm/dL (12.0-15.0); LYMPHOCYTES 1.8 %; MCH 32.1 pg (26.0-34.0); MCHC 30.8 g/dL (28.0-37.0); MCV 104.4 fL (80.0-100.0); MONOCYTES 5.2 %; MPV 10.2 fl. (7.2-11.1); NUCLEATED RBCS 0 /100WBC; PLATELET COUNT* 309 thou/uL (150-400); POLYS 92.6 %; RBC 3.51 mil/uL (4.20-5.00); RDW-CV 19.6 % (10.5-14.5); WBC 19.7 thou/uL (4.0-11.0)
[2019-05-12 09:14] LABS: ALBUMIN 1.6 g/dL (3.4-5.0); CALCIUM 7.4 mg/dL (8.5-10.1); POTASSIUM 4.7 mmol/L (3.5-5.1); TOTAL BILIRUBIN 0.7 mg/dL (<0.1-1.0); TOTAL PROTEIN 5.3 g/dL (6.4-8.2)
[2019-05-12 09:20] LABS: CREATININE 3.2 mg/dL (0.6-1.3)
--- NOTE | 2019-05-12 18:01 | NUR ---
ASSESSMENTS CHARTED. PATIENT ON TPN, RATE SLOWED TO 60 ML/HR TODAY. BLOOD GLUCOSE GREATER THAN 500 TODAY. INITIALLY STARTED ON SLIDING SCALE INSULIN Q6H. GLUCOSE STILL ABOVE 500, WILL START INSULIN GTT THIS EVENING. WAITING FOR DELIVERY FROM PHARMACY TO INITIATE. UNITL INSULIN GTT IS STARTED, TPN ON HOLD. NO URINE OR BOWEL MOVEMENT MADE THIS SHIFT. WCTM
[2019-05-13] VITALS (30 sets, daily range): BP systolic 99–151; BP diastolic 49–87
[2019-05-13 04:47] LABS: HEMATOCRIT 34.9 % (37.0-47.0); HEMOGLOBIN 11.3 gm/dL (12.0-15.0); MCH 31.4 pg (26.0-34.0); MCHC 32.5 g/dL (28.0-37.0); MPV 9.2 fl. (7.2-11.1); RBC 3.61 mil/uL (4.20-5.00); RDW-CV 18.2 % (10.5-14.5); WBC 22.6 thou/uL (4.0-11.0)
[2019-05-13 05:01] LABS: MCV 96.5 fL (80.0-100.0)
[2019-05-13 05:19] LABS: CREATININE 3.9 mg/dL (0.6-1.3)
[2019-05-13 05:26] LABS: POTASSIUM 3.2 mmol/L (3.5-5.1)
--- NOTE | 2019-05-13 06:01 | NUR ---
ASSUMED CARE AT 1910H, ON NC WITH CAPNO AT 4LPM AND TOLERATED.SUCTION ORALLY DONE AND NOTED WITH YELLOWISH SPUTUM.NO DISTRESS NOTED.BLOOD SUGAR WAS DECREASING AND TPN STARTED.LATEST INSULIN DRIP AT 2.5U/H AND BLOOD SUGAR 71.STILL WAITING FOR THE SIGNITURE OF PUBLIC ADMIN TO TRANSFER PT TO HOSPICE BUT TODAY IS HOLIDAY,THEY WILL GET IT ELOISA.CONTINUE MONITORING AND KEEP PT COMFORTABLE.
--- NOTE | 2019-05-13 08:35 | CON ---
[facility] [address] [place] [address] CONSULTATION Name: ERIN GRISSOM Room: [address] IN M.R.#: [id number] Admission: 05/09/19 Attend Phys: Kyle Abbasi Discharge: Date of : 59 Report #: [id number] THIS REPORT FOR: //name// CC: Jonnie Garcia DATE OF SERVICE: 05/10/2019 NEPHROLOGY CONSULTATION CONSULTING PHYSICIAN: Dr. Garcia. REASON FOR NEPHROLOGY CONSULTATION: End-stage renal disease, could not get her dialysis because of low blood pressure and confusion. REASON FOR ADMISSION: Confusion. HISTORY OF PRESENT ILLNESS: This is a 63-year-old female with past medical history of end-stage renal disease, on hemodialysis, was recently placed on hospice and discharged from the hospital, but apparently it was revoked. She was at her dialysis appointment yesterday where she became confused and hypotensive. Her blood pressure was 80s/50s, so she was sent to the hospital where her blood pressure had actually improved, but her confusion still persists. Then blood pressure again went down, she is on low dose Levophed this morning in the ICU and she is unable to communicate and still looks altered. Nephrology has been consulted to take care her for dialysis needs. ALLERGIES: No known allergies. REVIEW OF SYSTEMS: Cannot obtain from the patient because of her mental status. HOME MEDICATIONS: Which include Plavix, gabapentin, losartan, isosorbide mononitrate, atorvastatin, bupropion, duloxetine, sennosides, docusate, ____, pantoprazole, melatonin, insulin glargine. PAST MEDICAL AND SURGICAL HISTORY: Which includes hysterectomy, coronary artery disease with history of CABG, peripheral vascular disease with history of stents in both legs, blindness in right eye, 30% vision in left eye, diabetes type 2, hypertension, end-stage renal disease, on hemodialysis; left BKA, hip fracture, AV fistula, depression, chronic diastolic congestive heart failure, chronic UTI, atrial fibrillation, on Coumadin; gastroparesis. FAMILY HISTORY: Noncontributory. SOCIAL HISTORY: She does not smoke or drink alcohol [place] [address] CONSULTATION Name: ERIN GRISSOM Room: [address]#: [id number] Admission: 05/09/19 Attend Phys: Kyle Abbasi Discharge: Date of : 59 Report #: [id number] PHYSICAL EXAMINATION: VITAL SIGNS: Blood pressure is 99/54, pulse ox 100%. She is on 2 liters of oxygen by nasal cannula, respiratory rate is 15, pulse rate is 118, temperature is 37.9. GENERAL: She is quite drowsy and she is arousable, but she is not able to answer questions. HEAD AND EYES: Atraumatic, normocephalic. Normal conjunctivae. EARS, NOSE, AND EYES: Normal ears and nose and mucous membranes seems to be very dry. NECK: No JVD. CHEST: Bilaterally clear to auscultation anteriorly. No crackles or wheezing heard. CARDIOVASCULAR: S1, S2 normal. No murmurs. ABDOMEN: Soft, nondistended, nontender. Bowel sounds decreased. DIALYSIS ACCESS: She has a right arm AV fistula with good bruit. EXTREMITIES: Lower extremities, there is no edema. NEUROLOGICAL FUNCTION: She seems confused and very drowsy. PSYCHIATRIC: Cannot assess right now. LABORATORY DATA: WBC 31.4, hemoglobin 11.6, platelet count is 244. Potassium is 5.4, sodium is 138, BUN is 70, calcium is 8.0. Other labs are reviewed. IMAGING: Head CT and chest x-ray were reviewed. ASSESSMENT: 1. End-stage renal disease, on hemodialysis every Monday, , and Monday. 2. Altered mental status. 3. Metabolic encephalopathy. 4. Anemia of chronic kidney disease with hemoglobin 11.6 on admission. 5. Urinary tract infection. 6. Head CT showing left frontal lobe infarct. We will defer to primary management of that. 7. History of chronic diastolic congestive heart failure. 8. History of atrial fibrillation. 9. History of diabetes type 2. 10. Hypertension, currently blood pressure is running low. She seems to be in septic shock with her urinary tract infection. PLAN: 1. Treatment of UTI as per primary team. 2. No need for IV fluids, we will not remove more than 500 mL of urine with dialysis because she does not look overtly hypervolemic, but we do not want her to become hypervolemic as well by giving her extra IV fluids. 3. Potassium is 5.4, it should get better after dialysis today. 4. We will dialyze her today for 3-1/2 hours to make up for yesterday's [address] [place] [address] CONSULTATION Name: ERIN GRISSOM Room: [facility] IN M.R.#: [id number] Admission: 05/09/19 Attend Phys: Kyle Abbasi Discharge: Date of : 59 Report #: [id number] dialysis and we will dialyze again tomorrow as per her regular schedule. Thank you for this consultation. We will continue to follow with you. Discussed with the patient's nurse. <ELECTRONICALLY SIGNED> By: Basilia Uriostegui MD 05/13/19 [id number] Uriostegui MD /nt
--- NOTE | 2019-05-13 14:19 | NUR ---
INTERDISICPILINARY ROUNDS: PT NONVERBAL. PLAN IS FOR PT TO RETURN TO [facility] AT DC WITH [facility] ONCE CAN BE DISCUSSED WITH PA/LEGAL GUARDIAN AND THEY ARE AGREEABLE. UNABLE TO REACH TODAY D/T HOLIDAY. WILL CONTACT TOMORROW UPDATED SUMEET/[facility]
--- NOTE | 2019-05-13 16:21 | NUR ---
VSS.TOLL LINE MECHANIC IN PLACE WITH NO CHANGES.PT DOWNGRADED TO TELEMETRY STATUS.PT IS ALERT BUT DOES NOT RESPOND TO NURSE OR FOLLOW COMMANDS.PT TONGUE THRASHING.PT REMAINS ON 4L O2 NC.NO C/O PAIN.RIGHT IJ SECURE AND PATENT WITH TPN AND INSULIN DRIP INFUSING PER TITRATION ORDERS.Q1 HOUR BLOOD GLUCOSE CHECKED.PT REMAINS NPO STATUS DUE TO AMS.Q2 HOUR POSITION CHANGES COMPLETED.WILL CONTINUE TO MONITOR FOR DURATION OF SHIFT.
--- NOTE | 2019-05-13 21:17 | NUR ---
ASSUMED CARE AT 1900H,ON NC AT 4LPM AND TOLERATED.LATEST BS 151, INSULIN DRIP NOW ON 2.5U/H.ROOM AVAILABLE AND REPORT GIVEN TO ABHI.STILL WAITINF FOR THE SIGNITURE FROM PUBLIC ADMIN TO TRANSFER PT TO HOSPICE.OUT FROM THE UNIT AT 2100.
[2019-05-14] VITALS (8 sets, daily range): BP systolic 121–169; BP diastolic 57–77
--- NOTE | 2019-05-14 06:57 | NUR ---
RECEIVED REPORT FROM APURVA ARGUETA. PT TRANSFERRED TO 221. PT AWAKE BUT UNRESPONSIVE. VSS. PHYSICAL ASSESSMENT COMPLETED AND CHARTED. PT ON O2 AT 4L NC. PT TRACING AFIB ON TELE. PT WITH TPN PATENT. PT ON INSULIN DRIP. INSULIN DRIP PROTOCOL IN PLACE. PT WITH PRESSURE SORE ON LEFT HIP, LEFT BUTTOCK & SACRAL. CLEANED, PAT DRY & CHANGED DRESSING. PT TURNED TO SIDES.
--- NOTE | 2019-05-14 11:36 | NUR ---
ASSUMED PT CARE AT 0800, AOX TO SELF, NON VERBAL, O2 SAT 90'S 4L NC, TRACING AFIB, TACH ON TELE. PT FEBRILE. PT ON INSULIN DRIP, GLUCOSE CHECK Q1. PT FOR DIALYSIS. WOUND ON THE BUTTOCK, C/D/I. PT Q2 TURN. PT LUNG SOUND COARSE/CRACKLES. PT ON ISOLATION FOR VRE. CENTRAL LINE INTACT. TPN RUNNING. PT HOURLY ROUNDING OBSERVED. CALL LIGHT WITHIN REACH, WILL CONTINUE TO MONITOR.
[2019-05-14] MEDS ORDERED: LINEZOLID600 MG PO (13:45)
--- NOTE | 2019-05-14 15:41 | NUR ---
PT NON VERBAL. PT DISCHARGED TO [facility]. TRANSPORT PACKET GIVEN TO EMS. REPORT GIVEN TO AMRITA, HOSPICE NURSE. CENTRAL LINE REMOVED. WOUND PICTURE TAKEN. LEFT THE UNIT 1300.
== END 2019-05-14 15:00 | DRG 871 ==
LOC: M.ERS 12:01 → M.ICU 13:45 → M.TBA-ER 13:45 → M.2W 13:45 → M.ICU 13:45 → M.TBA-ER 17:00 → M.ICU 18:25 → M.2W 05-13 21:09
PROVIDERS: Family Medicine; Internal Medicine Nephrology; ADMIT Internal Medicine
DX: A41.9 Sepsis, unspecified organism (principal); N18.6 End stage renal disease; G93.41 Metabolic encephalopathy; N39.0 Urinary tract infection, site not specified; I13.2 Hypertensive heart and chronic kidney disease with heart failure and with stage 5 chronic kidney disease, or end stage renal disease; I50.32 Chronic diastolic (congestive) heart failure; I25.10 Atherosclerotic heart disease of native coronary artery without angina pectoris; E11.51 Type 2 diabetes mellitus with diabetic peripheral angiopathy without gangrene; H54.62 Unqualified visual loss, left eye, normal vision right eye; F32.9 Major depressive disorder, single episode, unspecified; I48.91 Unspecified atrial fibrillation; R65.20 Severe sepsis without septic shock; D63.1 Anemia in chronic kidney disease; E83.51 Hypocalcemia; E11.43 Type 2 diabetes mellitus with diabetic autonomic (poly)neuropathy; K31.84 Gastroparesis; I95.9 Hypotension, unspecified; D64.9 Anemia, unspecified; Z28.21 Immunization not carried out because of patient refusal; Z99.2 Dependence on renal dialysis; Z82.49 Family history of ischemic heart disease and other diseases of the circulatory system; Z90.710 Acquired absence of both cervix and uterus; Z95.1 Presence of aortocoronary bypass graft; Z89.512 Acquired absence of left leg below knee; Z95.820 Peripheral vascular angioplasty status with implants and grafts; Z87.81 Personal history of (healed) traumatic fracture